=== PATIENT | male | born 1985 | race Caucasian/White ===

== ENCOUNTER 2016-09-04 15:30 | Inpatient (IN) ==
[2016-09-04] MEDS ORDERED: Ondansetron 4 MG/2 ML VIAL IVP ONE (15:51)
[2016-09-04] MEDS ORDERED: *HR* HYDROmorphone (PF) 1 MG/ML SYRINGE IVP ONE (15:51)
[2016-09-04] MEDS ORDERED: 0.9 % Sodium Chloride 1,000 ML IVC SCH (16:00)
[2016-09-04 16:51] LABS: Alanine Aminotransferase 20 Units/L (0-55); Albumin 5.1 g/dL (3.5-5.0); Albumin/Globulin Ratio 1.4 (1.1-2.2); Alkaline Phosphatase 76 Units/L (38-126); Aspartate Amino Transferase 19 Units/L (5-34); BUN/Creatinine Ratio 9 (6-26); Bilirubin,Total 1.7 mg/dL (0.2-1.2); Blood Urea Nitrogen 12 mg/dL (8-26); Calcium 11.3 mg/dL (8.6-10.8); Carbon Dioxide 22 mEq/L (19-29); Chloride 101 mEq/L (98-109); Globulin 3.7 g/dL (2.4-3.5); Glucose 147 mg/dL (70-99); Lipase 13 Units/L (8-78); Osmolality,Calculated 288 (280-300); Potassium 3.9 mEq/L (3.5-4.5); Sodium 138 mEq/L (136-145); Total Protein 8.8 g/dL (6.0-8.3); eGFR For African Americans > 60 (> 60); eGFR For Non-African Americans > 60 (> 60)
--- NOTE | 2016-09-04 17:01 | Emergency Department Note ---
Disposition Clinical Impression: Abdominal pain Qualifiers: Abdominal location: generalized Qualified Code(s): R10.84 - Generalized abdominal pain Disposition: Still a Patient [facility]: [facility] Care Provider[facility] - Forms: Work/School Release, ED Satisfaction Letter Abdominal Pain HPI - General Chief Complaint: ED Abdominal Pain Stated Complaint: SM bowel obstruction Time Seen by Provider: 09/04/16 15:50 Source: patient, family Nursing Notes Reviewed: Yes Vital Signs Reviewed: Yes - History of Present Illness Pain Scale: 9 - Related Data Allergies Allergy/AdvReac Type Severity Reaction Status Date / Time Amoxicillin AdvReac Rash Verified 09/04/16 15:42 Abdominal Pain PMH - Past Medical History Medical history: Reports: hypertension, other - Social History Smoking status: Never smoker Alcohol use: Reports: none Drug use: Reports: none Physical Exam - General Limitations: no limitations General appearance: alert, in distress Course Vital Signs Temperature 0 F L 09/04/16 15:42 Pulse Rate 128 09/04/16 15:42 Respiratory Rate 22 09/04/16 15:42 Blood Pressure 0/0 09/04/16 15:42 O2 Sat by Pulse Oximetry 97 09/04/16 15:42 Temperature 0 F L 09/04/16 15:42 Pulse Rate 114 09/04/16 16:01 Respiratory Rate 16 09/04/16 16:01 Blood Pressure 139/102 09/04/16 16:01 O2 Sat by Pulse Oximetry 95 09/04/16 16:01 Oxygen Delivery Oxygen Delivery Room Air Abdominal Pain - MDM Narrative Medical decision making narrative: I examined this patient and my medical decision-making was reviewed with the TECHNICAL ANALYST/PA/Advanced Practice Nurse/Resident Physician. I agree with the documented findings, disposition and treatment plan as described except to the extent set forth below. 09/04/16 @ 1750 hours Bed #5: EanJey : 81 Patient was seen and evaluated by Dr. Nobles and myself, I agree with his evaluation and management plan, I supervised the care of the patients stay. Currently our computer system hospitals down there and down time and this is the reason for this type of charting. Patients history of bowel obstructions in the past. In these been feeling bloated with nausea and pain today. He looks uncomfortable. There is a nonsurgical abdomen here and does have bowel sounds. Room and try to make him comfortable, check labs and a CT of his abdomen. He is in agreement with this plan. 1755 hrs.: Patients laboratory work is coming back, his white count is 9.7, his H&H are normal, platelets are normal, awaiting chemistry results and CAT scan. Chest X-Ray 09/04/16 15:51 IMPRESSION: 1. Left lower lobe opacity could be related to partial to complete collapse. Superimposed pneumonia is not excluded. 2. Minimal right basilar atelectasis. D/ / Fareed Agrawal MD / Fareed Agrawal MD Interpreting Provider: Fareed Agrawal MD 1832 hours: Patient had an EKG performed sinus tachycardia rates 114, QRS is 90 , QTC is 366, does have a right axis deviation no old EKGs in our system to compare this to. He is having no chest pain at this time. Patient is a little more comfortable at this time. We are signing him out to the evening ER physician Dr. Reddy for further management and disposition. - Lab Data Result diagrams: 09/04/16 16:04 Lab Results 09/04/16 09/04/16 Range/Units 16:04 16:04 Sodium 138 (136-145) mEq/L Potassium 3.9 (3.5-4.5) mEq/L Chloride 101 (98-109) mEq/L Carbon Dioxide 22 (19-29) mEq/L BUN 12 (8-26) mg/dL Creatinine 1.27 H (0.72-1.25) mg/dL Est GFR ( Amer) > 60 (> 60) Est GFR (Non-Af Amer) > 60 (> 60) BUN/Creatinine Ratio 9 (6-26) Glucose 147 H (70-99) mg/dL Calculated Osmolality 288 (280-300) Lactic Acid 2.2 (0.5-2.2) mmol/L Calcium 11.3 H (8.6-10.8) mg/dL Total Bilirubin 1.7 H (0.2-1.2) mg/dL AST 19 (5-34) Units/L ALT 20 (0-55) Units/L Alkaline Phosphatase 76 (38-126) Units/L Serum Total Protein 8.8 H (6.0-8.3) g/dL Albumin 5.1 H (3.5-5.0) g/dL Globulin 3.7 H (2.4-3.5) g/dL Albumin/Globulin Ratio 1.4 (1.1-2.2) Lipase 13 (8-78) Units/L
[2016-09-04] MEDS ORDERED: Ondansetron 4 MG/2 ML VIAL ONE (17:57)
[2016-09-04] MEDS ORDERED: *HR* HYDROmorphone (PF) 1 MG/ML SYRINGE ONE (17:57)
[2016-09-04] MEDS ORDERED: *HR* Promethazine 25 MG/ML VIAL IVP ONE (20:40)
[2016-09-04 20:52] LABS: Bilirubin,Urine Negative (Negative); Blood,Urine Trace (Negative); Clarity,Urine Clear (Clear); Color,Urine Yellow (Yellow); Glucose,Urine (UA) Normal (Normal); Ketones,Urine Negative (Negative); Leukocyte Esterase,Urine Small (Negative); Nitrite,Urine Negative (Negative); Protein,Urine Negative (Neg-Trace); Specific Gravity,Urine > 1.030 (1.010-1.025); Urobilinogen,Urine Normal (Normal)
[2016-09-04 20:53] LABS: Bacteria,Urine None Seen per hpf (None-Few); Hyaline Casts,Urine None Seen per lpf (None-Few); Squamous Epithelial Cell,Urine Many per lpf (None-Few); WBC,Urine 30-50 per hpf (0-3)
[2016-09-04 20:55] LABS: Basophils # 0.1 K/mcL (0.0-0.2); Basophils % 0.3 %; Eosinophils # 0.1 K/mcL (0.0-0.6); Eosinophils % 0.5 %; Hemoglobin 19.2 g/dL (12.9-16.9); Immature Granulocytes % 0.4 % (0-4); Lymphocytes # 2.2 K/mcL (0.6-4.6); Lymphocytes % 10.7 %; Mean Corpuscular HGB Conc 34.2 g/dL (31.6-35.5); Mean Corpuscular Hemoglobin 28.9 pg (28.0-33.3); Mean Corpuscular Volume 84.5 fL (83.0-100.0); Mean Platelet Volume 9.7 fL (9.4-12.4); Monocytes # 0.9 K/mcL (0.0-1.3); Monocytes % 4.6 %; Platelet Count 502 K/mcL (140-400); Red Blood Count 6.65 M/mcL (4.19-5.50); Red Cell Distribution Width 13.7 % (11.5-14.5); Segmented Neutrophils % 83.5 %
--- NOTE | 2016-09-04 20:56 | Emergency Department Note ---
Disposition Clinical Impression: Small bowel obstruction, partial Abdominal pain Qualifiers: Abdominal location: generalized Qualified Code(s): R10.84 - Generalized abdominal pain Disposition: Still a Patient Condition: Fair Time of Disposition: 05:22 Abdominal Pain HPI - General Chief Complaint: ED Abdominal Pain Stated Complaint: SM bowel obstruction Time Seen by Provider: 09/04/16 15:50 Source: patient, family Nursing Notes Reviewed: Yes Vital Signs Reviewed: Yes - History of Present Illness HPI Narrative: Mr. Davila, 30-year-old male, presents from home via POV with chief complaint of abdominal pain. Onset last night. Described as diffuse pain, with bloating. Associated nausea, vomiting. Also notes that he is having difficulty breathing from his abdominal distention. He is passing flatus. Last BM was 14:30 today and normal consistency. Patient notes his symptoms today are similar to previous small bowel obstructions. Patient postulates has had 20+ bowel obstructions in his lifetime. He states this is not anywhere near the worst but he knew it was progressing and needed evaluation. His last bowel obstruction was 7-8 months ago which is unusually long stretch for him to go without some degree of obstruction. PMH: History of multiple small bowel obstructions. Hypertension. PSH: Multiple bowel surgeries - cholecystectomy, appendectomy, bilateral inguinal hernia, diaphragmatic hernia, regular bowels and infant, full valve structure with surgical correction in 2008. No history of bowel resection. ROS: Positive: Nausea, vomiting, abdominal pain. Negative: Fever, chills, chest pains, palpitations, changes in bladder habits. No hematemesis, hematochezia, melena. Pain Scale: 9 - Related Data Home Medications Medication Instructions Recorded Confirmed Amitriptyline [Elavil] 10 mg PO HS 09/04/16 09/04/16 Lisinopril [Zestril] 10 mg PO DAILY 09/04/16 09/04/16 Allergies Allergy/AdvReac Type Severity Reaction Status Date / Time Amoxicillin AdvReac Rash Verified 09/04/16 15:42 All systems ED: reviewed and negative except as stated. Abdominal Pain PMH - Past Medical History Medical history: Reports: hypertension, other - Social History Smoking status: Never smoker Alcohol use: Reports: none Drug use: Reports: none Physical Exam Vital Signs Reviewed General: Patient is alert, oriented, and in moderate distress. HEENT: No facial asymmetry. Head is normocephalic and atraumatic. Trachea midline. Cardiovascular: Heart regular rate and rhythm without clicks, rubs, gallops, or murmurs. Respiratory: Symmetric chest rise with good respiratory effort. Bilateral breath sounds are clear without wheezing, crackles, or rhonchi. Abdomen: Bowel sounds present normoactive x-4 quadrants. Abdomen is nondistended, with guarding, and tenderness most prominent in right lower quadrant and left lower quadrant. No rebound tenderness. Psych: Patient's affect is appropriate for situation. - General Limitations: no limitations General appearance: alert, in distress Course Course Narrative: High clinical suspicion for small bowel stricture. Will provide nausea control , analgesia, IV fluids. No concern at this time for surgical abdomen. CT abdomen and pelvis without contrast shows distal obstruction; otherwise unremarkable as read by radiology. Patient has leukocytosis of 20.4, lactate of 2.2, normal hepatic and pancreatic enzymes. 21:30 Spoke with on-call general surgery, Dr. Bland, who agrees to follow the patient with admission to hospitalist. Request placement of NG tube and has no other concerns request at this time. 21:45 Spoke with the patient at length regarding an NG tube. He outright refused. We discussed rationale and that it does more than simply decompress the stomach but also down regulates bile production from the liver reducing fluid load on the small bowel specifically reducing bowel contents heading toward the obstruction to minimize risk of dilation, worsening obstruction, and cessation of peristalsis. Patient and his expressed understanding noting that they nor even told all this in the past. He again refused the NG tube. Discussed potential long-term sequelae of complete obstruction this necessitating emergent surgery. He expressed understanding and again refused the NG tube. Spoke with the admitting hospitalist, Dr. Lorenzo, who agrees to accept the patient. Also the patient uses NG tube despite full explanation of benefits of placement and risks of refusal. Vital Signs Temperature 0 F L 09/04/16 15:42 Pulse Rate 128 09/04/16 15:42 Respiratory Rate 22 09/04/16 15:42 Blood Pressure 0/0 09/04/16 15:42 O2 Sat by Pulse Oximetry 97 09/04/16 15:42 Temperature 97.6 F 09/05/16 05:09 Pulse Rate 90 09/05/16 05:09 Respiratory Rate 15 09/05/16 05:09 Blood Pressure 128/74 09/05/16 05:09 O2 Sat by Pulse Oximetry 94 09/05/16 05:09 Oxygen Delivery Oxygen Delivery Room Air Abdominal Pain - Lab Data Result diagrams: 09/05/16 04:44 09/04/16 16:04 Lab Results 09/04/16 09/04/16 09/04/16 Range/Units 16:04 16:04 16:04 WBC 20.4 H (4.3-11.1) K/mcL RBC 6.65 H (4.19-5.50) M/mcL Hgb 19.2 H (12.9-16.9) g/dL Hct 56.2 H (37.5-50.1) % MCV 84.5 (83.0-100.0) fL MCH 28.9 (28.0-33.3) pg MCHC 34.2 (31.6-35.5) g/dL RDW 13.7 (11.5-14.5) % Plt Count 502 H (140-400) K/mcL MPV 9.7 (9.4-12.4) fL Immature Gran % 0.4 (0-4) % Seg Neutrophils % 83.5 % Lymphocytes % 10.7 % Monocytes % 4.6 % Eosinophils % 0.5 % Basophils % 0.3 % Neutrophils # 17.0 H (1.6-8.9) K/mcL Lymphocytes # 2.2 (0.6-4.6) K/mcL Monocytes # 0.9 (0.0-1.3) K/mcL Eosinophils # 0.1 (0.0-0.6) K/mcL Basophils # 0.1 (0.0-0.2) K/mcL Sodium 138 (136-145) mEq/L Potassium 3.9 (3.5-4.5) mEq/L Chloride 101 (98-109) mEq/L Carbon Dioxide 22 (19-29) mEq/L BUN 12 (8-26) mg/dL Creatinine 1.27 H (0.72-1.25) mg/dL Est GFR ( Amer) > 60 (> 60) Est GFR (Non-Af Amer) > 60 (> 60) BUN/Creatinine Ratio 9 (6-26) Glucose 147 H (70-99) mg/dL POC Glucose (58-89) Calculated Osmolality 288 (280-300) Lactic Acid 2.2 (0.5-2.2) mmol/L Calcium 11.3 H (8.6-10.8) mg/dL Total Bilirubin 1.7 H (0.2-1.2) mg/dL AST 19 (5-34) Units/L ALT 20 (0-55) Units/L Alkaline Phosphatase 76 (38-126) Units/L Serum Total Protein 8.8 H (6.0-8.3) g/dL Albumin 5.1 H (3.5-5.0) g/dL Globulin 3.7 H (2.4-3.5) g/dL Albumin/Globulin Ratio 1.4 (1.1-2.2) Lipase 13 (8-78) Units/L Urine Color (Yellow) Urine Clarity (Clear) Urine pH (5.0-8.0) pH Units Ur Specific Dodson (1.010-1.025) Urine Protein (Neg-Trace) mg/dL Urine Glucose (UA) (Normal) mg/dL Urine Ketones (Negative) mg/dL Urine Blood (Negative) Urine Nitrite (Negative) Urine Bilirubin (Negative) Urine Urobilinogen (Normal) mg/dL Ur Leukocyte Esterase (Negative) Urine Microscopic RBC (0-3) per hpf Urine Microscopic WBC (0-3) per hpf Ur Squamous Epith Cells (None-Few) per lpf Urine Bacteria (None-Few) per hpf Hyaline Casts (None-Few) per lpf Ur Culture Indicated? (NO) 09/04/16 09/05/16 Range/Units 20:12 00:24 WBC (4.3-11.1) K/mcL RBC (4.19-5.50) M/mcL Hgb (12.9-16.9) g/dL Hct (37.5-50.1) % MCV (83.0-100.0) fL MCH (28.0-33.3) pg MCHC (31.6-35.5) g/dL RDW (11.5-14.5) % Plt Count (140-400) K/mcL MPV (9.4-12.4) fL Immature Gran % (0-4) % Seg Neutrophils % % Lymphocytes % % Monocytes % % Eosinophils % % Basophils % % Neutrophils # (1.6-8.9) K/mcL Lymphocytes # (0.6-4.6) K/mcL Monocytes # (0.0-1.3) K/mcL Eosinophils # (0.0-0.6) K/mcL Basophils # (0.0-0.2) K/mcL Sodium (136-145) mEq/L Potassium (3.5-4.5) mEq/L Chloride (98-109) mEq/L Carbon Dioxide (19-29) mEq/L BUN (8-26) mg/dL Creatinine (0.72-1.25) mg/dL Est GFR ( Amer) (> 60) Est GFR (Non-Af Amer) (> 60) BUN/Creatinine Ratio (6-26) Glucose (70-99) mg/dL POC Glucose 140 H (58-89) Calculated Osmolality (280-300) Lactic Acid (0.5-2.2) mmol/L Calcium (8.6-10.8) mg/dL Total Bilirubin (0.2-1.2) mg/dL AST (5-34) Units/L ALT (0-55) Units/L Alkaline Phosphatase (38-126) Units/L Serum Total Protein (6.0-8.3) g/dL Albumin (3.5-5.0) g/dL Globulin (2.4-3.5) g/dL Albumin/Globulin Ratio (1.1-2.2) Lipase (8-78) Units/L Urine Color Yellow (Yellow) Urine Clarity Clear (Clear) Urine pH 6.0 (5.0-8.0) pH Units Ur Specific Dodson > 1.030 H (1.010-1.025) Urine Protein Negative (Neg-Trace) mg/dL Urine Glucose (UA) Normal (Normal) mg/dL Urine Ketones Negative (Negative) mg/dL Urine Blood Trace H (Negative) Urine Nitrite Negative (Negative) Urine Bilirubin Negative (Negative) Urine Urobilinogen Normal (Normal) mg/dL Ur Leukocyte Esterase Small H (Negative) Urine Microscopic RBC 3-5 H (0-3) per hpf Urine Microscopic WBC 30-50 H (0-3) per hpf Ur Squamous Epith Cells Many H (None-Few) per lpf Urine Bacteria None Seen (None-Few) per hpf Hyaline Casts None Seen (None-Few) per lpf Ur Culture Indicated? YES A (NO) Attestation Statement - Attestation Attestation: I, Neil Wood MD, personally evaluated this patient and discussed their management with the resident physician. I reviewed the resident's note and agree with the documented findings, medical decision making, and plan of care. This patient was signed out at shift change from Dr. Faulkner and Dr. Nobles. Patient has a history of multiple previous abdominal surgeries and previous bowel obstructions. He presents with a one-day history of abdominal pain with nausea and some vomiting. He states he did have a bowel movement today and has been passing gas. Patient reports this feels like when he has a partial bowel obstruction. On examination patient is a well-developed well-nourished male in no acute distress. He is alert and oriented 3. There is no cyanosis or diaphoresis. Breath sounds are clear and equal bilaterally. Heart regular rate and rhythm. Abdomen is soft with moderate diffuse tenderness to palpation. Mild guarding but no rebound tenderness noted. No tympany or distention. No rigidity. Bowel sounds are increased and sound obstructed. Labs reviewed. CT showed a distal small bowel obstruction. Dr. Stinson discussed the case with the surgeon foundation assistant, Dr. Bland. Patient will be admitted to the hospitalist service with surgery consultation. The hospitalist, Dr. Lorenzo, was consulted and accepted admission of the patient.
[2016-09-04 21:02] LABS: Hematocrit 56.2 % (37.5-50.1)
[2016-09-04] MEDS ORDERED: *HR* Morphine 2 MG/ML SYRINGE IVP ONE (21:09)
[2016-09-04] MEDS ORDERED: 0.9 % Sodium Chloride 1,000 ML IVC ONE (21:10)
--- NOTE | 2016-09-04 23:41 | Internal Med History&Physical ---
Date of Encounter: 09/04/16 Time of Encounter: 23:41 Assessment and Plan (1) SBO (small bowel obstruction) Current visit: Yes Status: Acute patient with a history of multiple abdominal surgeries followed by adhesiolysis from bowel obstruction and several admissions for same comes in with signs an symptoms of bowel obstructions confirmed on CT of abdomen, he has declined NGT placement, we will do NPO except chips and meds, pain management, IVF and antiemetics, (2) Renal insufficiency Current visit: Yes Status: Acute baseline renal function unknown but this could be related to pre-renal azotemia considering his admission diagnosis, we will hydrate and follow BMP (3) HTN (hypertension) Current visit: Yes Status: Chronic will continue his home medications whilst monitoring his BP Qualifiers: Hypertension type: essential hypertension Qualified Code(s): I10 - Essential (primary) hypertension Internal Medicine - H&P: HPI Chief complaint: abdominal pain Admitted From: Emergency Dept Plans for Post Hospital Care: Home History of present illness: Mr. Davila is a 30 year old male with a history of multiple prior abdominal surgeries followed by multiple admissions for bowel obstruction was brought to the ER for abdominal pain, nausea and vomiting. He reports that his symptoms began last night, which later got worse later this morning. The pain is dull crampy and constant but intermittently has stabbing pain worse in the lower abdomen but is diffuse over the whole abdomen. No diarrhea is associated, he had a normal bowel movement today, he has also had a couple episodes of nausea and vomiting. The vomitus is non bilious and non bloody. He is still passing flatus. His last such episode was about 7-8 months ago and was seen in [place]. No fever, chills, noted. 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) Current living situation: Home - Independent, With Family Additional social history: with 2 children, - Family History Mother Age: 51 Living Status: Still Living Hx Family Musculoskeletal Disorders: Yes (Rheumitoid arthritis) - Additional Family History Additional family history: both parents are alive, father has no known medical conditions, mother has Rheumatoid arthritis, paternal grandfather has crohn's disease, maternal uncle has diverticulitis Internal Medicine - H&P: Meds Amitriptyline [Elavil] 10 mg PO HS 09/04/16 [History] Lisinopril [Zestril] 10 mg PO DAILY 09/04/16 [History] Allergies Amoxicillin Adverse Reaction (Verified 09/04/16 15:42) Rash All Systems PM: A 10-system review of systems was performed and is negative for pertinent findings except as documented above in the HPI. - Constitutional Vitals: Temp Pulse Resp BP Pulse Ox 97.9 F 111 20 125/85 93 09/04/16 23:23 09/04/16 21:56 09/04/16 23:23 09/04/16 23:23 09/04/16 21:56 PHYSICAL EXAMINATION: GENERAL: Adult male, lying in bed with discomfort, Alert, HEENT: NC/AT, EOMI, PERRLA, anicteric sclera, normal conjunctiva, supple, clear nares, dry mucous membranes, RESP: lungs are clear to auscultation bilaterally, good AE bilaterally, No crackles or wheeze CARDIO: Normal hearts sounds; S1 and 2, RRR with no murmurs, no JVD, no ankle edema GI: abdominal scars noted, soft, full, diffuse tenderness with no guarding, no organomegaly felt, occasional bowel sounds heard MUSCULOSKELETAL: grossly normal movements bilaterally, no deformities noted, no calf tenderness NEUROLOGIC: CN 2-12 intact grossly. No motor/sensory deficit appreciated, PSYCHIATRY: AAO x 3. Mood is fair, SKIN: surgical scars on abdomen, no rash noted Internal Med - H&P Results - Labs CBC & Chem 7: 09/05/16 04:44 09/04/16 16:04 - Diagnostic Studies CT scan - abdomen Status: image reviewed by me Chest x-ray Status: image reviewed by me
[2016-09-04] MEDS ORDERED: Ondansetron 4 MG/2 ML VIAL IVP PRN (23:53)
[2016-09-04] MEDS ORDERED: Naloxone 0.4 MG/ML INJ IVP PRN (23:53)
[2016-09-05] MEDS: *HR* HYDROmorphone (PF) 1 MG/ML SYRINGE IVP PRN ×6 (00:15→20:16)
[2016-09-05] MEDS: Ringers Solution, Lactated 1,000 ML IVC SCH ×3 (00:31→16:49)
[2016-09-05] MEDS: *HR* Enoxaparin 40 MG/0.4 ML SYRINGE SQ SCH (04:54)
[2016-09-05 05:10] LABS: Hematocrit 45.4 % (37.5-50.1); Hemoglobin 15.3 g/dL (12.9-16.9); Mean Corpuscular HGB Conc 33.7 g/dL (31.6-35.5); Mean Corpuscular Hemoglobin 28.5 pg (28.0-33.3); Mean Corpuscular Volume 84.5 fL (83.0-100.0); Platelet Count 371 K/mcL (140-400); Red Blood Count 5.37 M/mcL (4.19-5.50); Red Cell Distribution Width 13.2 % (11.5-14.5)
[2016-09-05 05:29] LABS: BUN/Creatinine Ratio 15 (6-26); Blood Urea Nitrogen 12 mg/dL (8-26); Calcium 8.4 mg/dL (8.6-10.8); Carbon Dioxide 24 mEq/L (19-29); Chloride 108 mEq/L (98-109); Glucose 125 mg/dL (70-99); Magnesium 1.6 mg/dL (1.6-2.6); Osmolality,Calculated 287 (280-300); Phosphorous 3.4 mg/dL (2.3-4.7); Potassium 4.2 mEq/L (3.5-4.5); Sodium 138 mEq/L (136-145); eGFR For African Americans > 60 (> 60); eGFR For Non-African Americans > 60 (> 60)
--- NOTE | 2016-09-05 09:36 | General Surgery Consult Note ---
Addendum entered and electronically signed by Jaylene Hong DO 09/05/16 16:54: Advance diet as tolerated. Surgery will sign out. Follow-up as needed. Original Note: <Jaylene Hong - Last Filed: 09/05/16 15:39> Date of Encounter: 09/05/16 Time of Encounter: 08:00 Assessment and Plan (1) SBO (small bowel obstruction) Current Visit: Yes Status: Acute Patient presents with signs and symptoms of small bowel obstruction. History of recurrent small bowel ejection and multiple abdominal surgeries. Today, patient reports that he has had flatus since admisison and has had one bowel movement this afternoon described as liquid and dark "like contrast media came through". Patient does not feel like this bowel obstruction warrents an NG tube at this time as it is not as bad as his previous SBO. CT scan demonstrates: Abdomen/Pelvis CT 09/04/16 17:30 IMPRESSION: Distal small bowel obstruction, likely due to an adhesion in the right lower quadrant. Surgical consultation is recommended. Chest X-Ray 09/04/16 15:51 IMPRESSION: 1. Left lower lobe opacity could be related to partial to complete collapse. Superimposed pneumonia is not excluded. 2. Minimal right basilar atelectasis. Laboratory results demonstrate leukocytosis with white blood cell count at 15.6. Otherwise unremarkable laboratory results. On exam: Abdomen: distended, minimal tympani, active bowel sounds, diffuse tenderness to palpation. No rebound/Rigidity/guarding/peritoneal signs. Nonsurgical abdomen. Vital signs stable. Non focal neuro exam. Plan: SBO NPO except for ice chips IV fluids Pain management Antiemetic: phenergan as pt states Zofran has not alleviated his sx. Continue abdominal exams. Conservative management over next 48-72 hours. If pt fails conservative management may require surgery. History of Present Illness Consult date: 09/05/16 Reason for consult: abdominal pain Requesting physician: Kartik Eckert History of present illness: Mr. Davila is a 30-year-old male with a past medical history of diaphragmatic hernia at that was repaired promptly however subsequently developed strangulated bowel approximately 13 days later and had bowel resection and appendectomy at that time, full bowel obstruction in 2008 with lysis of adhesions, bilateral inguinal hernias 2013, cholecystectomy 2015, hypertension, who presented to the emergency department last night with signs and symptoms of small bowel obstruction that was confirmed on CT of the abdomen. Patient reports progressive onset of symptoms that began 2 days ago Friday evening as distention bloating and discomfort diffusely across his abdomen. Yesterday patient awoke with increasing abdominal discomfort and pain and by the mid afternoon he was experiencing intense pain in the mid epigastric and periumbilical region with diffuse tenderness and constant cramping sensation with intermittent episodes of sharp stabbing sensations that radiate deep to his back. Associated symptoms include Nausea and vomiting 4 episodes nonbilious nonbloody. No alleviating factors. Symptoms are similar to his last bowel obstruction. Last small bowel obstruction was 7 months ago for which she was hospitalized 4 days treated conservatively with resolution of symptoms. Last meal 09/04/16 around 9 AM. Last bowel movement 09/04/16 around 1430 described as small and firm. Past Med Surg Social Fam HX - Past Medical History Medical history: hypertension, other Psychiatric history: no psych history - Past Surgical History Surgical History: appendectomy, cholecystectomy, herniorrhaphy (bilateral), other (adhesiolysis in 2008, for bowel obstruction, diaphragmatic hernia repair) - Social History Smoking Status: Never smoker Alcohol use: none Drug use: none - Family History Mother Age: 51 Living Status: Still Living Hx Family Musculoskeletal Disorders: Yes (Rheumitoid arthritis) Medications and Allergies Amitriptyline [Elavil] 10 mg PO HS 09/04/16 [History] Lisinopril [Zestril] 10 mg PO DAILY 09/04/16 [History] Allergies Amoxicillin Adverse Reaction (Verified 09/04/16 15:42) Rash Review of Systems All systems PM: A 10-system review of systems was performed and is negative for pertinent findings except as documented above in the HPI. - Constitutional no anorexia, no fatigue, no fever(s), no headache(s) - EENT Nose, mouth and throat: no dysphagia, no nasal trauma, no neck mass, no neck pain, no nose pain, no post-nasal drip, no sinus pressure, no throat swelling, no tongue swelling - Cardiovascular no chest pain, no diaphoresis, no dyspnea, no edema, no lightheadedness, no palpitations - Respiratory no cough, no hemoptysis, no wheezing - Gastrointestinal abdominal pain, belching, bloating, cramping, dyspepsia, heartburn, nausea, vomiting, no coffee ground emesis, no constipation, no diarrhea, no dysphagia, no excessive flatus, no hematemesis, no hematochezia, no loose stools, no melena , no tenesmus - Genitourinary no difficulty urinating, no dysuria, no flank pain, no hematuria, no urinary frequency - Musculoskeletal no neck pain, no numbness, no stiffness, no tingling - Integumentary no pruritus, no rash, no sores, no wounds, no jaundice - Neurological no abnormal speech, no confusion, no dizziness, no lack of coordination, no syncope - Psychiatric no anxiety, no irritability - Endocrine no fatigue, no flushing, no palpitations, no polydipsia, no polyphagia, no polyuria - Hematologic/Lymphatic no easy bleeding, no easy bruising, no lymphadenopathy - Allergic/Immunologic GI upset with certain foods, no tongue swelling, no throat swelling, no uticaria General Surgery Exam Initial Vital Signs Temp Pulse Resp BP Pulse Ox 0 F L 128 22 0/0 97 09/04/16 15:42 09/04/16 15:42 09/04/16 15:42 09/04/16 15:42 09/04/16 15:42 - General physical appearance well developed, well nourished, no distress, moderate pain - Eyes PERRL, normal ocular movement - ENT normal nares, normal mucosa, atraumatic, normocephalic, CN 2-12 grossly intact - Neck no bruits, trachea midline, no venous distension - Respiratory normal expansion, normal respiratory effort, clear to auscultation - Cardiovascular Cardiovascular exam: Present: RRR, no murmurs/rubs/gallops. Absent: JVD - Abdomen Abdomen general surgery: Present: bowel sounds present, soft, tender Abdominal Tenderness: Present: diffusely - Integumentary Integumentary general surgery: Present: warm and dry, no abnormal pigmentation. Absent: rash - Neurologic Present: CN 2-12 grossly intact, normal coordination, normal sensation, deep tendon reflexes - Musculoskeletal Present: normal gait, normal posture - Psychiatric Psychiatric general surgery: Present: A&Ox3, appropriate, speech is normal, memory intact Exam Initial Vital Signs Temp Pulse Resp BP Pulse Ox 0 F L 128 22 0/0 97 09/04/16 15:42 09/04/16 15:42 09/04/16 15:42 09/04/16 15:42 09/04/16 15:42 Results - Labs 09/05/16 04:44 09/05/16 04:44 Abnormal lab results WBC 15.6 K/mcL (4.3-11.1) H 09/05/16 04:44 MPV 9.0 fL (9.4-12.4) L 09/05/16 04:44 Neutrophils # 17.0 K/mcL (1.6-8.9) H 09/04/16 16:04 Glucose 125 mg/dL (70-99) H 09/05/16 04:44 POC Glucose 112 (58-89) H 09/05/16 05:13 Calcium 8.4 mg/dL (8.6-10.8) L D 09/05/16 04:44 Total Bilirubin 1.7 mg/dL (0.2-1.2) H 09/04/16 16:04 Serum Total Protein 8.8 g/dL (6.0-8.3) H 09/04/16 16:04 Albumin 5.1 g/dL (3.5-5.0) H 09/04/16 16:04 Globulin 3.7 g/dL (2.4-3.5) H 09/04/16 16:04 Ur Specific [place] > 1.030 (1.010-1.025) H 09/04/16 20:12 Urine Blood Trace (Negative) H 09/04/16 20:12 Ur Leukocyte Esterase Small (Negative) H 09/04/16 20:12 Urine Microscopic RBC 3-5 per hpf (0-3) H 09/04/16 20:12 Urine Microscopic WBC 30-50 per hpf (0-3) H 09/04/16 20:12 Ur Squamous Epith Cells Many per lpf (None-Few) H 09/04/16 20:12 Ur Culture Indicated? YES (NO) A 09/04/16 20:12 Diabetes panel 09/05/16 Range/Units 04:44 Sodium 138 (136-145) mEq/L Potassium 4.2 (3.5-4.5) mEq/L Chloride 108 (98-109) mEq/L Carbon Dioxide 24 (19-29) mEq/L BUN 12 (8-26) mg/dL Creatinine 0.82 (0.72-1.25) mg/dL Glucose 125 H (70-99) mg/dL Calcium 8.4 L D (8.6-10.8) mg/dL Calcium panel 09/05/16 Range/Units 04:44 Calcium 8.4 L D (8.6-10.8) mg/dL Phosphorus 3.4 (2.3-4.7) mg/dL Pituitary panel 09/05/16 Range/Units 04:44 Sodium 138 (136-145) mEq/L Potassium 4.2 (3.5-4.5) mEq/L Chloride 108 (98-109) mEq/L Carbon Dioxide 24 (19-29) mEq/L BUN 12 (8-26) mg/dL Creatinine 0.82 (0.72-1.25) mg/dL Glucose 125 H (70-99) mg/dL Calcium 8.4 L D (8.6-10.8) mg/dL Adrenal panel 09/05/16 Range/Units 04:44 Sodium 138 (136-145) mEq/L Potassium 4.2 (3.5-4.5) mEq/L Chloride 108 (98-109) mEq/L Carbon Dioxide 24 (19-29) mEq/L BUN 12 (8-26) mg/dL Creatinine 0.82 (0.72-1.25) mg/dL Glucose 125 H (70-99) mg/dL Calcium 8.4 L D (8.6-10.8) mg/dL All other labs normal. Consult Discharge Plan - Plan Referrals: [facility] [Outside] <Rojas Bland E - Last Filed: 09/06/16 08:41> Date of Encounter: 09/06/16 Assessment and Plan (1) Small bowel obstruction, partial Current Visit: Yes Status: Acute The patient's abdominal pain has resolved. The patient also reports flatus and a bowel movement. Therefore no bowel obstruction is observed at this point. We were available if the patient's symptoms should recur otherwise we will see the patient as needed and I will sign off at this point. Review of Systems All systems PM: A 10-system review of systems was performed and is negative for pertinent findings except as documented above in the HPI. General Surgery Exam Initial Vital Signs Temp Pulse Resp BP Pulse Ox 0 F L 128 22 0/0 97 09/04/16 15:42 09/04/16 15:42 09/04/16 15:42 09/04/16 15:42 09/04/16 15:42 Exam Initial Vital Signs Temp Pulse Resp BP Pulse Ox 0 F L 128 22 0/0 97 09/04/16 15:42 09/04/16 15:42 09/04/16 15:42 09/04/16 15:42 09/04/16 15:42 Results - Labs 09/06/16 04:00 09/06/16 04:00 Abnormal lab results Sodium 135 mEq/L (136-145) L 09/06/16 04:00 Calculated Osmolality 278 (280-300) L 09/06/16 04:00 Calcium 8.1 mg/dL (8.6-10.8) L 09/06/16 04:00 Magnesium 1.5 mg/dL (1.6-2.6) L 09/06/16 04:00 Total Bilirubin 1.7 mg/dL (0.2-1.2) H 09/04/16 16:04 Serum Total Protein 8.8 g/dL (6.0-8.3) H 09/04/16 16:04 Albumin 5.1 g/dL (3.5-5.0) H 09/04/16 16:04 Globulin 3.7 g/dL (2.4-3.5) H 09/04/16 16:04 Ur Specific [place] > 1.030 (1.010-1.025) H 09/04/16 20:12 Urine Blood Trace (Negative) H 09/04/16 20:12 Ur Leukocyte Esterase Small (Negative) H 09/04/16 20:12 Urine Microscopic RBC 3-5 per hpf (0-3) H 09/04/16 20:12 Urine Microscopic WBC 30-50 per hpf (0-3) H 09/04/16 20:12 Ur Squamous Epith Cells Many per lpf (None-Few) H 09/04/16 20:12 Ur Culture Indicated? YES (NO) A 09/04/16 20:12 Diabetes panel 09/06/16 Range/Units 04:00 Sodium 135 L (136-145) mEq/L Potassium 3.9 (3.5-4.5) mEq/L Chloride 105 (98-109) mEq/L Carbon Dioxide 25 (19-29) mEq/L BUN 11 (8-26) mg/dL Creatinine 0.84 (0.72-1.25) mg/dL Glucose 81 (70-99) mg/dL Calcium 8.1 L (8.6-10.8) mg/dL Calcium panel 09/06/16 Range/Units 04:00 Calcium 8.1 L (8.6-10.8) mg/dL Pituitary panel 09/06/16 Range/Units 04:00 Sodium 135 L (136-145) mEq/L Potassium 3.9 (3.5-4.5) mEq/L Chloride 105 (98-109) mEq/L Carbon Dioxide 25 (19-29) mEq/L BUN 11 (8-26) mg/dL Creatinine 0.84 (0.72-1.25) mg/dL Glucose 81 (70-99) mg/dL Calcium 8.1 L (8.6-10.8) mg/dL Adrenal panel 09/06/16 Range/Units 04:00 Sodium 135 L (136-145) mEq/L Potassium 3.9 (3.5-4.5) mEq/L Chloride 105 (98-109) mEq/L Carbon Dioxide 25 (19-29) mEq/L BUN 11 (8-26) mg/dL Creatinine 0.84 (0.72-1.25) mg/dL Glucose 81 (70-99) mg/dL Calcium 8.1 L (8.6-10.8) mg/dL All other labs normal.
--- NOTE | 2016-09-05 12:57 | Electrocardiograph Report ---
[address] [address] Test Date: 2016-09-04 Pat Name: Jey Davila Department: 104 Room: 3A33 Gender: M [place]: : 1985 Requested By: Adeel Faulkner Order Number: [id number] Reading MD: Rosalio Paul MD Measurements Intervals [place] Rate: 114 P: 48 AR: 123 QRS: 102 QRSD: 90 T: -22 QT: 298 QTc: 366 Interpretive Statements SINUS TACHYCARDIA MARKED RIGHT AXIS DEVIATION Electronically Signed On 09-05-2016 12:55:16 EDT by Rosalio Paul MD
[2016-09-05] MEDS: *HR* Promethazine 25 MG/ML VIAL IVP PRN ×2 (12:59→20:16)
--- NOTE | 2016-09-05 15:38 | Internal Med Progress Note ---
Date of Encounter: 09/05/16 Time of Encounter: 10:00 - Assessment and plan (1) DVT prophylaxis Current Visit: Yes Status: Acute Assessment and plan: Lovenox subcutaneously (2) HTN (hypertension) Current Visit: Yes Status: Chronic Assessment and plan: BP is stable. continue home medications Qualifiers: Hypertension type: essential hypertension Qualified Code(s): I10 - Essential (primary) hypertension (3) Small bowel obstruction, partial Current Visit: Yes Status: Acute Assessment and plan: Patient has flatus. Consider partial small bowel obstruction. Patient has history of multiple intra-abdominal surgeries and history of small bowel obstruction previously. - Continue nothing by mouth, IV fluid - Closely monitor patient - Surgical consult - Time Spent With Patient 25 - 35 minutes - Subjective Interval history: Patient is a 30-year-old male admitted for small bowel obstruction. His past medical history is significant for hypertension and multiple intra-abdominal surgeries. Patient was seen and examined. The abdominal pain is less. Patient has flatus. Vital signs stable. Surgical consult appreciated. We will continue nothing by mouth and IV fluid. - Constitutional Vitals: Temp Pulse Resp BP Pulse Ox 98.0 F 95 20 132/91 95 09/05/16 11:20 09/05/16 11:20 09/05/16 11:20 09/05/16 11:20 09/05/16 11:20 General appearance: Present: A&O X 3, no acute distress, answers questions appropriately - Head Head exam: Present: atraumatic, normocephalic - Eye Eye exam: Present: PERRL, conjuntiva pink, sclera anicteric Pupils: Present: PERRL - Neck Neck exam general surgery: Present: supple, trachea midline. Absent: lymphadenopathy - Respiratory Respiratory exam: Present: CTAB. Absent: accessory muscle use, rales, rhonchi, wheezes - Cardiovascular Cardiovascular exam: Present: RRR, +S1, +S2. Absent: diastolic murmur, gallop, rubs, systolic murmur - GI/Abdominal GI/Abdominal exam: Present: hyperactive bowel sounds, soft, no peritoneal signs. Absent: distended, tenderness - Extremities Exam Extremities exam: Present: warm, radial pulses palpable and symetrical. Absent : calf tenderness, cyanotic, pedal edema - Neurological Exam Neurological exam: Present: CN II-XII intact, oriented X3, no focal deficits. Absent: pronater drift, facial droop, speech deficit - Skin Skin exam: Present: dry, intact Internal Medicine: Result - Labs CBC & Chem 7: 09/05/16 04:44 09/05/16 04:44 Labs: Short CBC 09/05/16 Range/Units 04:44 WBC 15.6 H (4.3-11.1) K/mcL Hgb 15.3 D (12.9-16.9) g/dL Hct 45.4 (37.5-50.1) % Plt Count 371 (140-400) K/mcL BMP 09/05/16 04:44 Sodium 138 Potassium 4.2 Chloride 108 Carbon Dioxide 24 BUN 12 Creatinine 0.82 Glucose 125 H Calcium 8.4 L D Consult Discharge Plan - Plan Referrals: [facility] [Outside]
[2016-09-06] MEDS: *HR* Promethazine 25 MG/ML VIAL IVP PRN ×3 (03:45→22:18)
[2016-09-06] MEDS: *HR* HYDROmorphone (PF) 1 MG/ML SYRINGE IVP PRN (03:46)
[2016-09-06] MEDS: *HR* Enoxaparin 40 MG/0.4 ML SYRINGE SQ SCH (03:47)
[2016-09-06 05:01] LABS: Basophils % 0.4 %; Eosinophils # 0.3 K/mcL (0.0-0.6); Eosinophils % 2.8 %; Hematocrit 41.1 % (37.5-50.1); Immature Granulocytes % 0.2 % (0-4); Lymphocytes # 1.7 K/mcL (0.6-4.6); Lymphocytes % 19.2 %; Mean Corpuscular HGB Conc 34.1 g/dL (31.6-35.5); Mean Corpuscular Hemoglobin 29.5 pg (28.0-33.3); Mean Corpuscular Volume 86.7 fL (83.0-100.0); Mean Platelet Volume 9.6 fL (9.4-12.4); Monocytes # 0.8 K/mcL (0.0-1.3); Monocytes % 8.9 %; Neutrophils # 6.2 K/mcL (1.6-8.9); Platelet Count 320 K/mcL (140-400); Red Blood Count 4.74 M/mcL (4.19-5.50); Red Cell Distribution Width 13.2 % (11.5-14.5); Segmented Neutrophils % 68.5 %
[2016-09-06 05:17] LABS: BUN/Creatinine Ratio 13 (6-26); Blood Urea Nitrogen 11 mg/dL (8-26); Calcium 8.1 mg/dL (8.6-10.8); Carbon Dioxide 25 mEq/L (19-29); Chloride 105 mEq/L (98-109); Glucose 81 mg/dL (70-99); Osmolality,Calculated 278 (280-300); Potassium 3.9 mEq/L (3.5-4.5); Sodium 135 mEq/L (136-145); eGFR For African Americans > 60 (> 60); eGFR For Non-African Americans > 60 (> 60)
[2016-09-06 07:11] LABS: Magnesium 1.5 mg/dL (1.6-2.6)
--- NOTE | 2016-09-06 07:41 | General Surgery Progress Note ---
Date of Encounter: 09/06/16 Time of Encounter: 07:32 - Assessment and Plan (1) SBO (small bowel obstruction) Current Visit: Yes Status: Acute Patient presents with signs and symptoms of small bowel obstruction. History of recurrent small bowel ejection and multiple abdominal surgeries. Today, patient reports that he has had flatus since admisison and has had one bowel movement this afternoon described as liquid and dark "like contrast media came through". Patient does not feel like this bowel obstruction warrents an NG tube at this time as it is not as bad as his previous SBO. CT scan demonstrates: Abdomen/Pelvis CT 09/04/16 17:30 IMPRESSION: Distal small bowel obstruction, likely due to an adhesion in the right lower quadrant. Surgical consultation is recommended. Chest X-Ray 09/04/16 15:51 IMPRESSION: 1. Left lower lobe opacity could be related to partial to complete collapse. Superimposed pneumonia is not excluded. 2. Minimal right basilar atelectasis. Laboratory results demonstrate leukocytosis with white blood cell count at 15.6. Otherwise unremarkable laboratory results. On exam: Abdomen: distended, minimal tympani, active bowel sounds, diffuse tenderness to palpation. No rebound/Rigidity/guarding/peritoneal signs. Nonsurgical abdomen. Vital signs stable. Non focal neuro exam. Plan: SBO NPO except for ice chips IV fluids Pain management Antiemetic: phenergan as pt states Zofran has not alleviated his sx. Continue abdominal exams. Conservative management over next 48-72 hours. If pt fails conservative management may require surgery. Objective Vital Signs - Last 8 Hours Temp Pulse Resp BP Pulse Ox 09/06/16 04:39 98.0 F 87 18 112/75 94 Intake and Output 09/05/16 09/05/16 09/06/16 15:59 23:59 07:59 Intake Total 1000 / 1000 1460 / 1460 1999 / 1999 Output Total 650 / 650 0 / 0 425 / 425 Balance 350 / 350 1460 / 1460 1575 / 1575 Intake: IV Fluids 1000 / 1000 1000 / 1000 1999 / 1999 Lactated Ringers 1,000 ML 1000 / 1000 1000 / 1000 1000 / 1000 @ 125 mls/hr IVC .Q8H NICOLAS Rx#:[id number] Oral 0 / 0 460 / 460 Output: Urine 650 / 650 0 / 0 425 / 425 Other: Weight 73.482 kg Blood Glucose* 96 85 Patient Weight 05/26/17 23:59 Weight 73.482 kg - Integumentary no rash, no abnormal pigmentation, other (Patient's lower extremities is covered with watery stool.) - Neurologic CN 2-12 grossly intact, normal coordination, normal sensation - Musculoskeletal normal posture - Psychiatric oriented to time, oriented to person, oriented to place, speech is normal, memory intact, other (Patient is irritable) - Labs 09/06/16 04:00 09/06/16 04:00 Diabetes panel 09/06/16 Range/Units 04:00 Sodium 135 L (136-145) mEq/L Potassium 3.9 (3.5-4.5) mEq/L Chloride 105 (98-109) mEq/L Carbon Dioxide 25 (19-29) mEq/L BUN 11 (8-26) mg/dL Creatinine 0.84 (0.72-1.25) mg/dL Glucose 81 (70-99) mg/dL Calcium 8.1 L (8.6-10.8) mg/dL Calcium panel 09/06/16 Range/Units 04:00 Calcium 8.1 L (8.6-10.8) mg/dL Pituitary panel 09/06/16 Range/Units 04:00 Sodium 135 L (136-145) mEq/L Potassium 3.9 (3.5-4.5) mEq/L Chloride 105 (98-109) mEq/L Carbon Dioxide 25 (19-29) mEq/L BUN 11 (8-26) mg/dL Creatinine 0.84 (0.72-1.25) mg/dL Glucose 81 (70-99) mg/dL Calcium 8.1 L (8.6-10.8) mg/dL Adrenal panel 09/06/16 Range/Units 04:00 Sodium 135 L (136-145) mEq/L Potassium 3.9 (3.5-4.5) mEq/L Chloride 105 (98-109) mEq/L Carbon Dioxide 25 (19-29) mEq/L BUN 11 (8-26) mg/dL Creatinine 0.84 (0.72-1.25) mg/dL Glucose 81 (70-99) mg/dL Calcium 8.1 L (8.6-10.8) mg/dL Consult Discharge Plan - Plan Referrals: [facility] [Outside]
[2016-09-06] MEDS ORDERED: *HR* OxyCODONE Immed Rel 5 MG TABLET PO PRN (08:20)
[2016-09-06] MEDS ORDERED: Magnesium Sulfate 2 GM in D5% in Water 100 ML IVPB ONE (08:34)
[2016-09-06] MEDS: Ketorolac 30 MG/ML VIAL IVP PRN ×2 (11:25→18:39)
[2016-09-06] MEDS: *HR* OxyCODONE Immed Rel 5 MG TABLET PO PRN ×2 (15:09→22:18)
--- NOTE | 2016-09-06 16:38 | Internal Med Progress Note ---
Date of Encounter: 09/06/16 Time of Encounter: 10:00 - Assessment and plan (1) DVT prophylaxis Current Visit: Yes Status: Acute Assessment and plan: Lovenox subcutaneously (2) HTN (hypertension) Current Visit: Yes Status: Chronic Assessment and plan: BP is stable. continue home medications Qualifiers: Hypertension type: essential hypertension Qualified Code(s): I10 - Essential (primary) hypertension (3) Small bowel obstruction, partial Current Visit: Yes Status: Acute Assessment and plan: Patient has flatus and BM. Consider partial small bowel obstruction. Patient has history of multiple intra-abdominal surgeries and history of small bowel obstruction previously. - Advance diet as tolerate, IV fluid - Closely monitor patient - Time Spent With Patient 25 - 35 minutes - Subjective Interval history: Patient is a 30-year-old male admitted for small bowel obstruction. His past medical history is significant for hypertension and multiple intra-abdominal surgeries. Patient was seen and examined. The abdominal pain is less. Patient has flatus and one BM yesterday. Vital signs stable. Surgical consult appreciated. Diet has been advanced to full liquid. Continue closely monitor pt. - Constitutional Vitals: Temp Pulse Resp BP Pulse Ox 98.2 F 91 18 122/79 95 09/06/16 15:22 09/06/16 15:22 09/06/16 15:22 09/06/16 15:22 09/06/16 15:22 General appearance: Present: A&O X 3, no acute distress, answers questions appropriately - Head Head exam: Present: atraumatic, normocephalic - Eye Eye exam: Present: PERRL, conjuntiva pink, sclera anicteric Pupils: Present: PERRL - Neck Neck exam general surgery: Present: supple, trachea midline. Absent: lymphadenopathy - Respiratory Respiratory exam: Present: CTAB. Absent: accessory muscle use, rales, rhonchi, wheezes - Cardiovascular Cardiovascular exam: Present: RRR, +S1, +S2. Absent: diastolic murmur, gallop, rubs, systolic murmur - GI/Abdominal GI/Abdominal exam: Present: hyperactive bowel sounds, soft, no peritoneal signs. Absent: distended, tenderness - Extremities Exam Extremities exam: Present: warm, radial pulses palpable and symetrical. Absent : calf tenderness, cyanotic, pedal edema - Neurological Exam Neurological exam: Present: CN II-XII intact, oriented X3, no focal deficits. Absent: pronater drift, facial droop, speech deficit - Skin Skin exam: Present: dry, intact Internal Medicine: Result - Labs CBC & Chem 7: 09/06/16 04:00 09/06/16 04:00 Labs: Short CBC 09/06/16 Range/Units 04:00 WBC 9.1 (4.3-11.1) K/mcL Hgb 14.0 (12.9-16.9) g/dL Hct 41.1 (37.5-50.1) % Plt Count 320 (140-400) K/mcL Neutrophils # 6.2 (1.6-8.9) K/mcL BMP 09/06/16 04:00 Sodium 135 L Potassium 3.9 Chloride 105 Carbon Dioxide 25 BUN 11 Creatinine 0.84 Glucose 81 Calcium 8.1 L Consult Discharge Plan - Plan Referrals: [facility] [Outside]
[2016-09-07] MEDS: Ketorolac 30 MG/ML VIAL IVP PRN ×4 (03:41→21:30)
[2016-09-07 03:58] LABS: Basophils % 0.5 %; Eosinophils # 0.3 K/mcL (0.0-0.6); Eosinophils % 3.7 %; Hemoglobin 14.2 g/dL (12.9-16.9); Immature Granulocytes % 0.3 % (0-4); Lymphocytes # 1.9 K/mcL (0.6-4.6); Lymphocytes % 23.4 %; Mean Corpuscular HGB Conc 33.8 g/dL (31.6-35.5); Mean Corpuscular Hemoglobin 29.3 pg (28.0-33.3); Mean Corpuscular Volume 86.6 fL (83.0-100.0); Mean Platelet Volume 9.5 fL (9.4-12.4); Monocytes # 0.8 K/mcL (0.0-1.3); Monocytes % 9.8 %; Platelet Count 331 K/mcL (140-400); Red Blood Count 4.85 M/mcL (4.19-5.50); Red Cell Distribution Width 13.2 % (11.5-14.5); Segmented Neutrophils % 62.3 %
[2016-09-07 04:23] LABS: BUN/Creatinine Ratio 12 (6-26); Blood Urea Nitrogen 11 mg/dL (8-26); Calcium 8.6 mg/dL (8.6-10.8); Carbon Dioxide 24 mEq/L (19-29); Chloride 107 mEq/L (98-109); Glucose 96 mg/dL (70-99); Osmolality,Calculated 283 (280-300); Potassium 3.7 mEq/L (3.5-4.5); Sodium 137 mEq/L (136-145); eGFR For African Americans > 60 (> 60); eGFR For Non-African Americans > 60 (> 60)
[2016-09-07] MEDS: *HR* Promethazine 25 MG/ML VIAL IVP PRN ×3 (06:37→21:29)
[2016-09-07] MEDS: *HR* Enoxaparin 40 MG/0.4 ML SYRINGE SQ SCH (06:37)
[2016-09-07] MEDS: D5% in 0.45% NACL 1,000 ML IVC SCH ×2 (09:14→19:38)
[2016-09-07] MEDS: *HR* OxyCODONE Immed Rel 5 MG TABLET PO PRN (12:40)
--- NOTE | 2016-09-07 13:53 | Internal Med Progress Note ---
Date of Encounter: 09/07/16 Time of Encounter: 10:00 - Assessment and plan (1) DVT prophylaxis Current Visit: Yes Status: Acute Assessment and plan: Lovenox subcutaneously (2) HTN (hypertension) Current Visit: Yes Status: Chronic Assessment and plan: BP is stable. continue home medications Qualifiers: Hypertension type: essential hypertension Qualified Code(s): I10 - Essential (primary) hypertension (3) Small bowel obstruction, partial Current Visit: Yes Status: Acute Assessment and plan: Patient has flatus. Consider partial small bowel obstruction. Patient has history of multiple intra-abdominal surgeries and history of small bowel obstruction previously. Slow progression with treatment. - Advance diet as tolerate, IV fluid - Closely monitor patient - Time Spent With Patient 25 - 35 minutes - Subjective Interval history: Patient is a 30-year-old male admitted for small bowel obstruction. His past medical history is significant for hypertension and multiple intra-abdominal surgeries. Patient was seen and examined. The abdominal pain is less. Patient has flatus. No further BM yesterday. On full liquid diet but pt not consume food b/ o poor apetite. Vital signs stable. Continue closely monitor pt. - Constitutional Vitals: Temp Pulse Resp BP Pulse Ox 97.6 F 78 16 123/73 95 09/07/16 11:42 09/07/16 11:42 09/07/16 11:42 09/07/16 11:42 09/07/16 11:42 General appearance: Present: A&O X 3, no acute distress, answers questions appropriately - Head Head exam: Present: atraumatic, normocephalic - Eye Eye exam: Present: PERRL, conjuntiva pink, sclera anicteric Pupils: Present: PERRL - Neck Neck exam general surgery: Present: supple, trachea midline. Absent: lymphadenopathy - Respiratory Respiratory exam: Present: CTAB. Absent: accessory muscle use, rales, rhonchi, wheezes - Cardiovascular Cardiovascular exam: Present: RRR, +S1, +S2. Absent: diastolic murmur, gallop, rubs, systolic murmur - GI/Abdominal GI/Abdominal exam: Present: hyperactive bowel sounds, soft, no peritoneal signs. Absent: distended, tenderness - Extremities Exam Extremities exam: Present: warm, radial pulses palpable and symetrical. Absent : calf tenderness, cyanotic, pedal edema - Neurological Exam Neurological exam: Present: CN II-XII intact, oriented X3, no focal deficits. Absent: pronater drift, facial droop, speech deficit - Skin Skin exam: Present: dry, intact Internal Medicine: Result - Labs CBC & Chem 7: 09/07/16 03:02 09/07/16 03:02 Labs: Short CBC 09/07/16 Range/Units 03:02 WBC 7.9 (4.3-11.1) K/mcL Hgb 14.2 (12.9-16.9) g/dL Hct 42.0 (37.5-50.1) % Plt Count 331 (140-400) K/mcL Neutrophils # 5.0 (1.6-8.9) K/mcL BMP 09/07/16 03:02 Sodium 137 Potassium 3.7 Chloride 107 Carbon Dioxide 24 BUN 11 Creatinine 0.94 Glucose 96 Calcium 8.6 Consult Discharge Plan - Plan Referrals: [facility] [Outside]
[2016-09-08 05:00] LABS: Basophils % 0.5 %; Eosinophils # 0.3 K/mcL (0.0-0.6); Eosinophils % 4.7 %; Hematocrit 42.2 % (37.5-50.1); Hemoglobin 14.3 g/dL (12.9-16.9); Immature Granulocytes % 0.1 % (0-4); Lymphocytes % 27.4 %; Mean Corpuscular HGB Conc 33.9 g/dL (31.6-35.5); Mean Corpuscular Hemoglobin 28.9 pg (28.0-33.3); Mean Corpuscular Volume 85.3 fL (83.0-100.0); Mean Platelet Volume 9.6 fL (9.4-12.4); Monocytes # 0.6 K/mcL (0.0-1.3); Monocytes % 8.4 %; Neutrophils # 4.3 K/mcL (1.6-8.9); Platelet Count 340 K/mcL (140-400); Red Blood Count 4.95 M/mcL (4.19-5.50); Red Cell Distribution Width 13.1 % (11.5-14.5); Segmented Neutrophils % 58.9 %
[2016-09-08] MEDS: *HR* Promethazine 25 MG/ML VIAL IVP PRN ×3 (05:04→22:09)
[2016-09-08] MEDS: *HR* OxyCODONE Immed Rel 5 MG TABLET PO PRN ×3 (05:05→19:42)
[2016-09-08] MEDS: D5% in 0.45% NACL 1,000 ML IVC SCH ×2 (05:06→15:42)
[2016-09-08] MEDS: *HR* Enoxaparin 40 MG/0.4 ML SYRINGE SQ SCH (05:07)
[2016-09-08 05:15] LABS: BUN/Creatinine Ratio 9 (6-26); Blood Urea Nitrogen 8 mg/dL (8-26); Calcium 8.4 mg/dL (8.6-10.8); Carbon Dioxide 22 mEq/L (19-29); Chloride 108 mEq/L (98-109); Glucose 104 mg/dL (70-99); Osmolality,Calculated 283 (280-300); Potassium 3.7 mEq/L (3.5-4.5); Sodium 137 mEq/L (136-145); eGFR For African Americans > 60 (> 60); eGFR For Non-African Americans > 60 (> 60)
[2016-09-08] MEDS: Ketorolac 30 MG/ML VIAL IVP PRN ×3 (10:20→22:10)
--- NOTE | 2016-09-08 16:24 | Internal Med Progress Note ---
Date of Encounter: 09/08/16 Time of Encounter: 10:00 - Assessment and plan (1) DVT prophylaxis Current Visit: Yes Status: Acute Assessment and plan: Lovenox subcutaneously (2) HTN (hypertension) Current Visit: Yes Status: Chronic Assessment and plan: BP is stable. continue home medications Qualifiers: Hypertension type: essential hypertension Qualified Code(s): I10 - Essential (primary) hypertension (3) Small bowel obstruction, partial Current Visit: Yes Status: Acute Assessment and plan: Patient has flatus. Consider partial small bowel obstruction. Patient has history of multiple intra-abdominal surgeries and history of small bowel obstruction previously. Get worse again today. - Will restart NPO, more conservative with diet advances, IV fluid - Closely monitor patient - Time Spent With Patient 25 - 35 minutes - Subjective Interval history: Patient is a 30-year-old male admitted for small bowel obstruction. His past medical history is significant for hypertension and multiple intra-abdominal surgeries. Patient was seen and examined. Patient has flatus and bowel movement yesterday. However, even before advanced diet to regular today, patient has increased abd distention and the pain. He still can pass flatus. Patient told me he has 20-30 hospitalization within the last 5 years for the same reason. He worries about coming back soon. Will hold diet now, restart NPO and IVF, closely monitor pt. - Constitutional Vitals: Temp Pulse Resp BP Pulse Ox 97.4 F L 69 16 145/89 95 09/08/16 14:45 09/08/16 14:45 09/08/16 14:45 09/08/16 14:45 09/08/16 14:45 General appearance: Present: A&O X 3, no acute distress, answers questions appropriately - Head Head exam: Present: atraumatic, normocephalic - Eye Eye exam: Present: PERRL, conjuntiva pink, sclera anicteric Pupils: Present: PERRL - Neck Neck exam general surgery: Present: supple, trachea midline. Absent: lymphadenopathy - Respiratory Respiratory exam: Present: CTAB. Absent: accessory muscle use, rales, rhonchi, wheezes - Cardiovascular Cardiovascular exam: Present: RRR, +S1, +S2. Absent: diastolic murmur, gallop, rubs, systolic murmur - GI/Abdominal GI/Abdominal exam: Present: hyperactive bowel sounds, soft, tenderness, no peritoneal signs. Absent: distended - Extremities Exam Extremities exam: Present: warm, radial pulses palpable and symetrical. Absent : calf tenderness, cyanotic, pedal edema - Neurological Exam Neurological exam: Present: CN II-XII intact, oriented X3, no focal deficits. Absent: pronater drift, facial droop, speech deficit - Skin Skin exam: Present: dry, intact Internal Medicine: Result - Labs CBC & Chem 7: 09/08/16 03:50 09/08/16 03:50 Labs: Short CBC 09/08/16 Range/Units 03:50 WBC 7.3 (4.3-11.1) K/mcL Hgb 14.3 (12.9-16.9) g/dL Hct 42.2 (37.5-50.1) % Plt Count 340 (140-400) K/mcL Neutrophils # 4.3 (1.6-8.9) K/mcL BMP 09/08/16 03:50 Sodium 137 Potassium 3.7 Chloride 108 Carbon Dioxide 22 BUN 8 Creatinine 0.86 Glucose 104 H Calcium 8.4 L Consult Discharge Plan - Plan Referrals: [facility] [Outside]
[2016-09-09] MEDS: D5% in 0.45% NACL 1,000 ML IVC SCH ×2 (02:00→17:12)
[2016-09-09] MEDS: *HR* Enoxaparin 40 MG/0.4 ML SYRINGE SQ SCH (05:01)
[2016-09-09] MEDS: *HR* OxyCODONE Immed Rel 5 MG TABLET PO PRN (08:29)
[2016-09-09] MEDS: *HR* Promethazine 25 MG/ML VIAL IVP PRN ×2 (10:45→21:42)
--- NOTE | 2016-09-09 14:02 | Internal Med Progress Note ---
Date of Encounter: 09/09/16 Time of Encounter: 10:00 - Assessment and plan (1) Small bowel obstruction, partial Current Visit: Yes Status: Acute Assessment and plan: Patient has flatus. Consider partial small bowel obstruction. Patient has history of multiple intra-abdominal surgeries and history of small bowel obstruction previously. Prolonged hospitalization due to recurrent symptoms. - Will continue NPO, more conservative with diet advances, IV fluid - Closely monitor patient (2) HTN (hypertension) Current Visit: Yes Status: Chronic Assessment and plan: BP is stable. continue home medications Qualifiers: Hypertension type: essential hypertension Qualified Code(s): I10 - Essential (primary) hypertension (3) DVT prophylaxis Current Visit: Yes Status: Acute Assessment and plan: Lovenox subcutaneously - Time Spent With Patient 25 - 35 minutes - Subjective Interval history: Patient is a 30-year-old male admitted for small bowel obstruction. His past medical history is significant for hypertension and multiple intra-abdominal surgeries. Patient was seen and examined. Patient has flatus yesterday, but no BM. Abdominal distention and pain has improved. We will continue nothing by mouth and IV fluid. Prolonged hospitalization because of recurrent symptoms. - Constitutional Vitals: Temp Pulse Resp BP Pulse Ox 98.1 F 82 16 135/89 96 09/09/16 11:26 09/09/16 11:26 09/09/16 11:26 09/09/16 11:26 09/09/16 11:26 General appearance: Present: A&O X 3, no acute distress, answers questions appropriately - Head Head exam: Present: atraumatic, normocephalic - Eye Eye exam: Present: PERRL, conjuntiva pink, sclera anicteric Pupils: Present: PERRL - Neck Neck exam general surgery: Present: supple, trachea midline. Absent: lymphadenopathy - Respiratory Respiratory exam: Present: CTAB. Absent: accessory muscle use, rales, rhonchi, wheezes - Cardiovascular Cardiovascular exam: Present: RRR, +S1, +S2. Absent: diastolic murmur, gallop, rubs, systolic murmur - GI/Abdominal GI/Abdominal exam: Present: distended, hyperactive bowel sounds, soft, tenderness (Mild tenderness all around the belly, no guarding or rebound), no peritoneal signs - Extremities Exam Extremities exam: Present: warm, radial pulses palpable and symetrical. Absent : calf tenderness, cyanotic, pedal edema - Neurological Exam Neurological exam: Present: CN II-XII intact, oriented X3, no focal deficits. Absent: pronater drift, facial droop, speech deficit - Skin Skin exam: Present: dry, intact Internal Medicine: Result - Labs CBC & Chem 7: 09/08/16 03:50 09/08/16 03:50 Consult Discharge Plan - Plan Referrals: [facility] [Outside]
[2016-09-09] MEDS: Ketorolac 30 MG/ML VIAL IVP PRN ×2 (14:27→21:30)
[2016-09-10] MEDS: D5% in 0.45% NACL 1,000 ML IVC SCH ×3 (05:20→17:00)
[2016-09-10] MEDS: *HR* Enoxaparin 40 MG/0.4 ML SYRINGE SQ SCH (05:20)
[2016-09-10] MEDS: Ketorolac 30 MG/ML VIAL IVP PRN ×2 (11:33→19:42)
[2016-09-10] MEDS: *HR* Promethazine 25 MG/ML VIAL IVP PRN ×2 (13:54→19:42)
--- NOTE | 2016-09-10 15:37 | Internal Med Progress Note ---
Date of Encounter: 09/10/16 Time of Encounter: 10:00 - Assessment and plan (1) Small bowel obstruction, partial Current Visit: Yes Status: Acute Assessment and plan: Patient has flatus. Consider partial small bowel obstruction. Patient has history of multiple intra-abdominal surgeries and history of small bowel obstruction previously. Prolonged hospitalization due to recurrent symptoms. - Will continue NPO, more conservative with diet advances, IV fluid - Closely monitor patient (2) HTN (hypertension) Current Visit: Yes Status: Chronic Assessment and plan: BP is stable. continue home medications Qualifiers: Hypertension type: essential hypertension Qualified Code(s): I10 - Essential (primary) hypertension (3) DVT prophylaxis Current Visit: Yes Status: Acute Assessment and plan: Lovenox subcutaneously (4) UTI (urinary tract infection) Current Visit: Yes Status: Acute Assessment and plan: No symptoms now. Finished 5 day course of cipro for uncomplicated UTI Qualifiers: Urinary tract infection type: acute cystitis Hematuria presence: without hematuria Qualified Code(s): N30.00 - Acute cystitis without hematuria - Time Spent With Patient 25 - 35 minutes - Subjective Interval history: Patient is a 30-year-old male admitted for small bowel obstruction. His past medical history is significant for hypertension and multiple intra-abdominal surgeries. Patient was seen and examined. Patient has flatus yesterday, but no BM. Still c/o abd pain and distention. We will continue nothing by mouth and IV fluid. Prolonged hospitalization because of recurrent symptoms. - Constitutional Vitals: Temp Pulse Resp BP Pulse Ox 97.9 F 81 14 133/88 99 09/10/16 11:25 09/10/16 11:25 09/10/16 11:25 09/10/16 11:25 09/10/16 11:25 General appearance: Present: A&O X 3, no acute distress, answers questions appropriately - Head Head exam: Present: atraumatic, normocephalic - Eye Eye exam: Present: PERRL, conjuntiva pink, sclera anicteric Pupils: Present: PERRL - Neck Neck exam general surgery: Present: supple, trachea midline. Absent: lymphadenopathy - Respiratory Respiratory exam: Present: CTAB. Absent: accessory muscle use, rales, rhonchi, wheezes - Cardiovascular Cardiovascular exam: Present: RRR, +S1, +S2. Absent: diastolic murmur, gallop, rubs, systolic murmur - GI/Abdominal GI/Abdominal exam: Present: normal bowel sounds, soft, no peritoneal signs. Absent: distended, tenderness - Extremities Exam Extremities exam: Present: warm, radial pulses palpable and symetrical. Absent : calf tenderness, cyanotic, pedal edema - Neurological Exam Neurological exam: Present: CN II-XII intact, oriented X3, no focal deficits. Absent: pronater drift, facial droop, speech deficit - Skin Skin exam: Present: dry, intact Internal Medicine: Result - Labs CBC & Chem 7: 09/08/16 03:50 09/08/16 03:50 Consult Discharge Plan - Plan Referrals: [facility] [Outside]
[2016-09-10] MEDS: *HR* OxyCODONE Immed Rel 5 MG TABLET PO PRN (22:14)
[2016-09-11] MEDS: *HR* Promethazine 25 MG/ML VIAL IVP PRN ×3 (01:32→18:56)
[2016-09-11] MEDS: Ketorolac 30 MG/ML VIAL IVP PRN ×2 (01:32→10:44)
[2016-09-11] MEDS: D5% in 0.45% NACL 1,000 ML IVC SCH ×3 (01:34→23:56)
[2016-09-11] MEDS: *HR* Enoxaparin 40 MG/0.4 ML SYRINGE SQ SCH (05:29)
[2016-09-11 05:58] LABS: Basophils # 0.1 K/mcL (0.0-0.2); Basophils % 0.7 %; Eosinophils # 0.4 K/mcL (0.0-0.6); Eosinophils % 4.6 %; Hematocrit 44.4 % (37.5-50.1); Hemoglobin 15.4 g/dL (12.9-16.9); Immature Granulocytes % 0.2 % (0-4); Lymphocytes # 3.1 K/mcL (0.6-4.6); Lymphocytes % 35.1 %; Mean Corpuscular HGB Conc 34.7 g/dL (31.6-35.5); Mean Corpuscular Hemoglobin 29.7 pg (28.0-33.3); Mean Corpuscular Volume 85.5 fL (83.0-100.0); Mean Platelet Volume 9.2 fL (9.4-12.4); Monocytes # 0.7 K/mcL (0.0-1.3); Monocytes % 7.7 %; Neutrophils # 4.5 K/mcL (1.6-8.9); Platelet Count 408 K/mcL (140-400); Red Blood Count 5.19 M/mcL (4.19-5.50); Red Cell Distribution Width 13.4 % (11.5-14.5); Segmented Neutrophils % 51.7 %
[2016-09-11 06:13] LABS: BUN/Creatinine Ratio 9 (6-26); Blood Urea Nitrogen 8 mg/dL (8-26); Carbon Dioxide 25 mEq/L (19-29); Chloride 107 mEq/L (98-109); Glucose 101 mg/dL (70-99); Osmolality,Calculated 284 (280-300); Potassium 4.4 mEq/L (3.5-4.5); Sodium 138 mEq/L (136-145); eGFR For African Americans > 60 (> 60); eGFR For Non-African Americans > 60 (> 60)
[2016-09-11] MEDS: *HR* OxyCODONE Immed Rel 5 MG TABLET PO PRN (11:26)
[2016-09-11] MEDS ORDERED: Acetaminophen 325 MG TABLET PO PRN ×2 (12:00→12:04)
[2016-09-11] MEDS ORDERED: *HR* Morphine 2 MG/ML SYRINGE IVP ONE (13:55)
--- NOTE | 2016-09-11 15:59 | Internal Med Progress Note ---
Date of Encounter: 09/11/16 Time of Encounter: 10:00 - Assessment and plan (1) Small bowel obstruction, partial Current Visit: Yes Status: Acute Assessment and plan: Patient has flatus. Consider partial small bowel obstruction. Patient has history of multiple intra-abdominal surgeries and history of small bowel obstruction previously. Prolonged hospitalization due to recurrent symptoms. - Will continue NPO, more conservative with diet advances, IV fluid - Closely monitor patient (2) HTN (hypertension) Current Visit: Yes Status: Chronic Assessment and plan: BP is stable. continue home medications Qualifiers: Hypertension type: essential hypertension Qualified Code(s): I10 - Essential (primary) hypertension (3) DVT prophylaxis Current Visit: Yes Status: Acute Assessment and plan: Lovenox subcutaneously (4) UTI (urinary tract infection) Current Visit: Yes Status: Acute Assessment and plan: No symptoms. Finished 5 day course of cipro for uncomplicated UTI. Abx has been discontinued. Qualifiers: Urinary tract infection type: acute cystitis Hematuria presence: without hematuria Qualified Code(s): N30.00 - Acute cystitis without hematuria - Time Spent With Patient 25 - 35 minutes - Subjective Interval history: Patient is a 30-year-old male admitted for small bowel obstruction. His past medical history is significant for hypertension and multiple intra-abdominal surgeries. Patient was seen and examined. Patient has flatus yesterday, but no BM. Still c/o abd pain and distention. tried clear liquid diet but pt has abd pain, will go back to NPO. Repeat CT abd shows persist SBO. Will continue NPO and IVF. Prolonged hospitalization due to recurrent symptoms and slow progression. - Constitutional Vitals: Temp Pulse Resp BP Pulse Ox 97.7 F 80 16 142/73 96 09/11/16 11:54 09/11/16 11:54 09/11/16 11:54 09/11/16 11:54 09/11/16 11:54 General appearance: Present: A&O X 3, no acute distress, answers questions appropriately - Head Head exam: Present: atraumatic, normocephalic - Eye Eye exam: Present: PERRL, conjuntiva pink, sclera anicteric Pupils: Present: PERRL - Neck Neck exam general surgery: Present: supple, trachea midline. Absent: lymphadenopathy - Respiratory Respiratory exam: Present: CTAB. Absent: accessory muscle use, rales, rhonchi, wheezes - Cardiovascular Cardiovascular exam: Present: RRR, +S1, +S2. Absent: diastolic murmur, gallop, rubs, systolic murmur - GI/Abdominal GI/Abdominal exam: Present: distended, hyperactive bowel sounds, soft, tenderness (Tenderness alround belly, no guarding or rebound.), no peritoneal signs - Extremities Exam Extremities exam: Present: warm, radial pulses palpable and symetrical. Absent : calf tenderness, cyanotic, pedal edema - Neurological Exam Neurological exam: Present: CN II-XII intact, oriented X3, no focal deficits. Absent: pronater drift, facial droop, speech deficit - Skin Skin exam: Present: dry, intact Internal Medicine: Result - Labs CBC & Chem 7: 09/11/16 05:12 09/11/16 05:12 Labs: Short CBC 09/11/16 Range/Units 05:12 WBC 8.7 (4.3-11.1) K/mcL Hgb 15.4 (12.9-16.9) g/dL Hct 44.4 (37.5-50.1) % Plt Count 408 H (140-400) K/mcL Neutrophils # 4.5 (1.6-8.9) K/mcL BMP 09/11/16 05:12 Sodium 138 Potassium 4.4 Chloride 107 Carbon Dioxide 25 BUN 8 Creatinine 0.90 Glucose 101 H Calcium 9.0 - Impressions Impressions Abdomen/Pelvis CT 09/11/16 13:56 IMPRESSION: Persistent distal small bowel obstruction as discussed, without significant change from the comparison. D/ / Tk Rodríguez MD / Tk Rodríguez MD Interpreting Provider: Tk Rodríguez MD Consult Discharge Plan - Plan Referrals: [facility] [Outside]
[2016-09-11] MEDS ORDERED: *HR* Morphine 2 MG/ML SYRINGE IVP PRN (18:50)
[2016-09-11] MEDS ORDERED: Ketorolac 30 MG/ML VIAL IVP PRN (18:58)
[2016-09-11] MEDS ORDERED: *HR* OxyCODONE Immed Rel 5 MG TABLET PO PRN (19:00)
[2016-09-11] MEDS: *HR* Morphine 2 MG/ML SYRINGE IVP PRN (19:19)
[2016-09-12] MEDS: *HR* Promethazine 25 MG/ML VIAL IVP PRN ×3 (01:22→20:22)
[2016-09-12] MEDS: *HR* Morphine 2 MG/ML SYRINGE IVP PRN ×4 (01:22→20:21)
[2016-09-12] MEDS: *HR* Enoxaparin 40 MG/0.4 ML SYRINGE SQ SCH (04:23)
[2016-09-12] MEDS: D5% in 0.45% NACL 1,000 ML IVC SCH ×2 (10:44→20:22)
--- NOTE | 2016-09-12 13:54 | Internal Med Progress Note ---
Date of Encounter: 09/12/16 Time of Encounter: 13:52 - Assessment and plan (1) SBO (small bowel obstruction) Current Visit: Yes Status: Acute Assessment and plan: repeat ct still shows persistent SBO. he is passing gas and moved his bowels yesterday. will start with clears and will cautiously advance his diet this time/ will keep the iVF for now. surgery has signed off. monitor closely. (2) HTN (hypertension) Current Visit: Yes Status: Chronic Assessment and plan: BP is stable. continue home medications Qualifiers: Hypertension type: essential hypertension Qualified Code(s): I10 - Essential (primary) hypertension (3) DVT prophylaxis Current Visit: Yes Status: Acute Assessment and plan: Lovenox subcutaneously (4) UTI (urinary tract infection) Current Visit: Yes Status: Acute Assessment and plan: No symptoms. Finished 5 day course of cipro for uncomplicated UTI. Abx has been discontinued. Qualifiers: Urinary tract infection type: acute cystitis Hematuria presence: without hematuria Qualified Code(s): N30.00 - Acute cystitis without hematuria - Subjective Interval history: seen at the bedside, says he feels better today, mild sore ness in kirsten right side of his belly. no nausea or vomiting, was kept NPO last night du eto worsening abdominal pain yesterday. - Constitutional Vitals: Temp Pulse Resp BP Pulse Ox 97.9 F 66 20 121/72 97 09/12/16 11:51 09/12/16 11:51 09/12/16 11:51 09/12/16 11:51 09/12/16 11:51 General appearance: Present: A&O X 3, no acute distress, answers questions appropriately Exam: Head exam: Present: atraumatic, normocephalic - Eye Eye exam: Present: PERRL, conjuntiva pink, sclera anicteric Pupils: Present: PERRL - Neck Neck exam general surgery: Present: supple, trachea midline. Absent: lymphadenopathy - Respiratory Respiratory exam: Present: CTAB. Absent: accessory muscle use, rales, rhonchi, wheezes - Cardiovascular Cardiovascular exam: Present: RRR, +S1, +S2. Absent: diastolic murmur, gallop, rubs, systolic murmur - GI/Abdominal GI/Abdominal exam: Present: soft, tenderness(mild on the right side, no guarding or rebound.), no peritoneal signs - Extremities Exam Extremities exam: Present: warm, radial pulses palpable and symetrical. Absent : calf tenderness, cyanotic, pedal edema - Neurological Exam Neurological exam: Present: CN II-XII intact, oriented X3, no focal deficits. Absent: pronater drift, facial droop, speech deficit - Skin Skin exam: Present: dry, intact Internal Medicine: Result - Labs CBC & Chem 7: 09/11/16 05:12 09/11/16 05:12 - Impressions Impressions Abdomen/Pelvis CT 09/11/16 13:56 IMPRESSION: Persistent distal small bowel obstruction as discussed, without significant change from the comparison. D/ / Tk Rodríguez MD / Tk Rodríguez MD Interpreting Provider: Tk Rodríguez MD - VTE Documentation of Mechanical Device: Venous foot pump, device Consult Discharge Plan - Plan Referrals: [facility] [Outside]
[2016-09-13] MEDS: *HR* Promethazine 25 MG/ML VIAL IVP PRN ×2 (02:26→09:40)
[2016-09-13] MEDS: *HR* Morphine 2 MG/ML SYRINGE IVP PRN ×2 (02:26→09:40)
[2016-09-13] MEDS: *HR* Enoxaparin 40 MG/0.4 ML SYRINGE SQ SCH (04:56)
[2016-09-13] MEDS: D5% in 0.45% NACL 1,000 ML IVC SCH (07:29)
[2016-09-13 10:37] VITALS: BP 122/82
--- NOTE | 2016-09-13 12:16 | Discharge Summary ---
Date of Encounter: 09/13/16 Time of Encounter: 12:13 - Discharge Diagnosis (1) SBO (small bowel obstruction) Priority: Primary Status: Acute (2) HTN (hypertension) Priority: Secondary Status: Chronic Qualifiers: Hypertension type: essential hypertension Qualified Code(s): I10 - Essential (primary) hypertension (3) DVT prophylaxis Priority: Secondary Status: Acute (4) UTI (urinary tract infection) Priority: Primary Status: Acute Qualifiers: Urinary tract infection type: acute cystitis Hematuria presence: without hematuria Qualified Code(s): N30.00 - Acute cystitis without hematuria - Discharge Medications Prescriptions: OxyCODONE Immed Rel [Roxicodone 5 MG] 5 mg PO Q6HR PRN #20 tablet PRN Reason: Pain Home Medications: Amitriptyline [Elavil] 10 mg PO HS 09/04/16 [History] Lisinopril [Zestril] 10 mg PO DAILY 09/04/16 [History] OxyCODONE Immed Rel [Roxicodone 5 MG] 5 mg PO Q6HR PRN #20 tablet 09/13/16 [Rx] Allergies/Adverse Reactions: Allergies Amoxicillin Adverse Reaction (Verified 09/04/16 15:42) Rash Procedures/tests Complete & Pending: Procedures Performed prior 72 hours Category Date Time Status CT abd pelvis wo no iv no oral [CT] Stat Cat Scan 09/11/16 13:56 Completed Date of admission: 09/05/16 01:27 Primary care physician: PCP [place] Consults: 09/11/16 19:04 Consult to Nutrition [CONS] Routine Comment: Consulting Provider: NUTRITION Reason for Dietary Consult: Diet Education Discharging clinician: Moncho Savage Anticipated date of discharge: 09/13/16 - Patient Status Disposition: Home, Self-Care Condition: Fair Functional capacity at discharge: independent ambulation Overall status at discharge: patient is back to baseline - Discharge Instructions Instructions: Oxycodone, Rapid Release (By mouth), Chronic Hypertension (DC) Follow Up With: [facility] [Outside] - 09/24/16 1:30 pm ([address] ) - Diet and Activity Activity: resume usual activities as tolerated Diet: other (soft diet) Interval History: Mr. Davila is a 30-year-old male with a past medical history of diaphragmatic hernia at that was repaired promptly however subsequently developed strangulated bowel approximately 13 days later and had bowel resection and appendectomy at that time, full bowel obstruction in 2008 with lysis of adhesions, bilateral inguinal hernias 2013, cholecystectomy 2015, hypertension, who presented to the emergency department with signs and symptoms of small bowel obstruction that was confirmed on CT of the abdomen. Last small bowel obstruction was 7 months ago for which she was hospitalized 4 days treated conservatively with resolution of symptoms. Patient was admitted to the medical floors, surgery was consulted and was treated conservatively with IV fluids, nothing by mouth and pain medications. He should improved gradually with resolution of pain, was able to move his bowels and is tolerating diet which was advanced gradually without any worsening of abdominal pain. Patient is being discharged in stable condition today, is advised to take soft diet for another week. Hospital course: Mr. Davila is a 30 year old male Time spent discussing smoking cessation with patient: more than 10 minutes - Time Spent with Patient Total time spent providing and/or coordinating discharge services: Greater than 30 minutes - Constitutional Vitals: Temp Pulse Resp BP Pulse Ox 97.6 F 69 18 122/82 99 09/13/16 10:36 09/13/16 10:36 09/13/16 10:36 09/13/16 10:36 09/13/16 10:36 General appearance: Present: A&O X 3, no acute distress, answers questions appropriately Exam: - Eyes PERRL, normal ocular movement - ENT normal nares, normal mucosa, atraumatic, normocephalic, CN 2-12 grossly intact - Neck no bruits, trachea midline, no venous distension - Respiratory normal expansion, normal respiratory effort, clear to auscultation - Cardiovascular Cardiovascular exam: Present: RRR, no murmurs/rubs/gallops. Absent: JVD - Abdomen Abdomen general surgery: Present: bowel sounds present, soft,non tender - Neurologic Present: CN 2-12 grossly intact, normal coordination, normal sensation, deep tendon reflexes - Musculoskeletal Present: normal gait, normal posture - Psychiatric Psychiatric general surgery: Present: A&Ox3, appropriate, speech is normal, memory intact - VTE Documentation of Mechanical Device: Venous foot pump, device
== END 2016-09-13 14:36 | disposition home or self-care (01) | DRG 389 ==
LOC: 3ANU 15:30 → EMEROO 15:30 → 3ANU 23:24
PROVIDERS: ADMIT Internal Medicine; ATTEND Internal Medicine

== ENCOUNTER 2016-12-02 06:23 | Inpatient (IN) ==
[2016-12-02] MEDS ORDERED: Ondansetron 4 MG/2 ML VIAL IVP ONE ×2 (06:40→10:28)
[2016-12-02] MEDS ORDERED: *HR* Morphine 2 MG/ML SYRINGE IVP ONE ×3 (06:40→09:43)
--- NOTE | 2016-12-02 06:43 | Emergency Department Note ---
Disposition Clinical Impression: Abdominal pain Qualifiers: Abdominal location: unspecified location Qualified Code(s): R10.9 - Unspecified abdominal pain Disposition: Still a Patient Condition: Good Forms: Work/School Release, ED Satisfaction Letter Time of Disposition: 06:47 Abdominal Pain HPI - General Chief Complaint: ED Abdominal Pain Stated Complaint: abdominal pain/distention Time Seen by Provider: 12/02/16 06:33 Source: patient Mode of arrival: ambulatory Limitations: no limitations Nursing Notes Reviewed: Yes Vital Signs Reviewed: Yes - History of Present Illness HPI Narrative: 31-year-old male presents with abdominal pain. Reports waking up at 4 AM to go to the work when he started experiencing abdominal pain and nausea without any emesis. States he feels like bowel obstruction that he has experience in the past. He has had multiple surgeries for his bowel distraction as well as adhesion lysis. History of multiple hernia surgeries, cholecystectomy, appendectomy. Most of his procedures were performed by surgeon at the [facility] or in the . States he has been passing gas. He had a bowel movement yesterday. Denies any fever, recent illness, cough, chest pain or shortness of breath. Denies any urinary symptoms. He also has a history of kidney stones. Labs are sharp cramping pain that moves from the right abdomen to the left. He has not taken anything for the nausea or the pain. Patient was able to ambulate to the room without any difficulty. Patient will be signout to daytime physician. Basic labs, lipase in a urinalysis ordered. Morphine and Zofran for symptoms. Pt Subjective Complaint: abdominal pain Pain Scale: 9 - Related Data Home Medications Medication Instructions Recorded Confirmed Amitriptyline [Elavil] 50 mg PO HS 09/04/16 11/11/16 Lisinopril [Zestril] 10 mg PO DAILY 09/04/16 11/11/16 Previous Rx's Medication Instructions Recorded Dicyclomine [Bentyl] 10 mg PO QID #24 capsule 11/11/16 Metoclopramide [Reglan] 10 mg PO Q6HR #20 tablet 11/11/16 Allergies Allergy/AdvReac Type Severity Reaction Status Date / Time Amoxicillin AdvReac Rash Verified 12/02/16 06:28 All systems ED: reviewed and negative except as stated. Review of Systems: As Per HPI Constitutional: Denies: fever, chills Cardiovascular: Denies: chest pain, dyspnea on exertion Respiratory: Denies: cough, dyspnea Gastrointestinal: Reports: abdominal pain, nausea, vomiting. Denies: diarrhea, melena, hematochezia Genitourinary: Denies: urgency, dysuria Musculoskeletal: Denies: back pain, neck pain Integumentary: Denies: rash, abrasion, lesions Neurological: Denies: headache Abdominal Pain PMH - Past Medical History Medical history: Reports: hypertension, other Male Surgical History: Reports: herniorrhaphy, other Psychiatric history: Reports: no psych history - Social History Smoking status: Current every day smoker Alcohol use: Reports: occasionally Drug use: Reports: none Physical Exam - General Limitations: no limitations General appearance: alert, in no apparent distress - Head Head exam: atraumatic, normocephalic, normal inspection - Eye Eye exam: Present: normal appearance, PERRL, EOMI. Absent: scleral icterus - ENT ENT exam: normal exam, normal oropharynx, mucous membranes moist - Neck Neck exam: Present: normal inspection, full ROM, trachea midline - Chest Chest inspection: Present: normal inspection, symmetric chest wall rise. Absent : tenderness - Respiratory Respiratory exam: Present: normal lung sounds bilaterally - Cardiovascular Cardiovascular exam: Present: regular rate, normal rhythm, normal heart sounds - Abdominal Exam Abdominal exam: Present: soft, tenderness, distention, normal bowel sounds, scar (multiple). Absent: Non-Tender, guarding, rebound, rigidity Abdominal tenderness: Present: RUQ, RLQ, diffuse - Extremities Exam Extremities exam: Present: normal inspection, full ROM, normal capillary refill. Absent: tenderness, pedal edema - Back Exam Back exam: Present: normal inspection, full ROM. Absent: tenderness, CVA tenderness (R), CVA tenderness (L) - Neurological Exam Neurological exam: Present: alert, oriented X3 - Psychiatric Psychiatric exam: Present: normal affect, normal mood - Skin Skin exam: Present: warm, dry, intact, normal color Course - Reevaluation(s) Reevaluation #1: Patient reports multiple partial small bowel obstructions in the past requiring surgeries. Review of his medical records shows that he has had multiple CT of the abdomen and pelvis, last May he did have bowel destruction. Patients presenting with some abdominal tenderness and mild distention. Basic labs ordered. Morphine and Zofran for symptoms. Patient will be signout to daytime physicians Dr. Alegria. Time: 06:46 Vital Signs Temperature 97.4 F L 12/02/16 06:25 Pulse Rate 93 12/02/16 06:25 Respiratory Rate 16 12/02/16 06:25 Blood Pressure 163/111 12/02/16 06:25 O2 Sat by Pulse Oximetry 100 12/02/16 06:25 Temperature 97.4 F L 12/02/16 06:25 Pulse Rate 93 12/02/16 06:25 Respiratory Rate 16 12/02/16 06:25 Blood Pressure 163/111 12/02/16 06:25 O2 Sat by Pulse Oximetry 100 12/02/16 06:25 Oxygen Delivery Oxygen Delivery Room Air Abdominal Pain - Medical Records Medical records reviewed: Yes I reviewed the patient's medical records. Vivek - Vivek Situation: Demographics, MOA Background: Presenting Complaint, Relevant PMH, Meds, & Allergies Assessment: Vital Signs, Course and respsone to treatment, Exam Concerns, Patient/Family Expectation, Pertinant Lab Results, Outstanding Labs Recommendation: Barrier(s) to disposition, Recommendation based on pending studies, treatments, or consults S.Anthony Report Given to: Dr. Raji Doyle Repor Time: 06:48 Attestation Statement - Attestation Attestation: I, Neil Wood MD, personally evaluated this patient and discussed their management with the resident physician. I reviewed the resident's note and agree with the documented findings, medical decision making, and plan of care. 31-year-old male with history of multiple abdominal surgeries and multiple partial bowel obstructions and multiple episodes of bilious. He presents to the emergency department this morning complaining that while on his way to work this morning he developed some crampy abdominal pain about 1-2 hours prior to arrival here in the emergency department. He complains of nausea but no vomiting. No diarrhea. He is passing gas. On examination patient is a well-developed well-nourished well-appearing male in no acute distress. He does appear to be in mild to moderate discomfort. He is alert and oriented 3. There is no cyanosis or diaphoresis. Breath sounds are clear and equal bilaterally. Heart regular rate and rhythm. Abdomen is soft with moderate diffuse tenderness. Bowel sounds are decreased. No distention noted. Abdominal pain workup initiated and patient is being signed out to oncoming dayshift team under Dr. Alegria.
[2016-12-02 06:51] LABS: Basophils # 0.1 K/mcL (0.0-0.2); Basophils % 0.6 %; Eosinophils # 0.2 K/mcL (0.0-0.6); Hematocrit 47.9 % (37.5-50.1); Hemoglobin 15.9 g/dL (12.9-16.9); Immature Granulocytes % 0.4 % (0-4); Lymphocytes # 2.3 K/mcL (0.6-4.6); Lymphocytes % 28.7 %; Mean Corpuscular HGB Conc 33.2 g/dL (31.6-35.5); Mean Corpuscular Hemoglobin 29.1 pg (28.0-33.3); Mean Corpuscular Volume 87.6 fL (83.0-100.0); Mean Platelet Volume 9.1 fL (9.4-12.4); Monocytes # 0.6 K/mcL (0.0-1.3); Monocytes % 7.7 %; Neutrophils # 4.9 K/mcL (1.6-8.9); Platelet Count 400 K/mcL (140-400); Red Blood Count 5.47 M/mcL (4.19-5.50); Red Cell Distribution Width 12.9 % (11.5-14.5); Segmented Neutrophils % 60.6 %
[2016-12-02 07:04] LABS: Alanine Aminotransferase 23 Units/L (0-55); Albumin 4.5 g/dL (3.5-5.0); Albumin/Globulin Ratio 1.3 (1.1-2.2); Alkaline Phosphatase 69 Units/L (38-126); Aspartate Amino Transferase 17 Units/L (5-34); BUN/Creatinine Ratio 14 (6-26); Bilirubin,Direct 0.1 mg/dL (0.0-0.5); Bilirubin,Indirect 0.3 mg/dL (0.0-1.2); Bilirubin,Total 0.4 mg/dL (0.2-1.2); Blood Urea Nitrogen 13 mg/dL (8-26); Calcium 10.7 mg/dL (8.6-10.8); Carbon Dioxide 24 mEq/L (19-29); Chloride 104 mEq/L (98-109); Globulin 3.5 g/dL (2.4-3.5); Glucose 99 mg/dL (70-99); Lipase 23 Units/L (8-78); Osmolality,Calculated 286 (280-300); Potassium 3.6 mEq/L (3.5-4.5); Sodium 138 mEq/L (136-145); eGFR For African Americans > 60 (> 60); eGFR For Non-African Americans > 60 (> 60)
[2016-12-02 07:08] LABS: Bilirubin,Urine Negative (Negative); Blood,Urine Negative (Negative); Clarity,Urine Clear (Clear); Color,Urine Yellow (Yellow); Glucose,Urine (UA) Normal (Normal); Ketones,Urine Negative (Negative); Leukocyte Esterase,Urine Negative (Negative); Nitrite,Urine Negative (Negative); Protein,Urine Negative (Neg-Trace); Specific Gravity,Urine 1.024 (1.010-1.025); Urobilinogen,Urine Normal (Normal)
[2016-12-02] MEDS ORDERED: *HR* Promethazine 25 MG/ML VIAL IVP ONE (07:34)
--- NOTE | 2016-12-02 07:52 | Emergency Department Note ---
Disposition Clinical Impression: Small bowel obstruction Abdominal pain Qualifiers: Abdominal location: unspecified location Qualified Code(s): R10.9 - Unspecified abdominal pain Disposition: Admitted As Inpatient Condition: Good Abdominal Pain HPI - General Chief Complaint: ED Abdominal Pain Stated Complaint: abdominal pain/distention Time Seen by Provider: 12/02/16 06:33 Source: patient Mode of arrival: ambulatory Limitations: no limitations Nursing Notes Reviewed: Yes Vital Signs Reviewed: Yes - History of Present Illness HPI Narrative: Patient here for evaluation of upper abdominal distention as well as right- sided abdominal pain. 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 Patient has had surgery for small bowel obstruction as well as inguinal hernia repairs. Symptoms started while he was on his way to work after eating any triggering bar. Patient describes significant amount of nausea that was uncontrolled with his initial dose of pain medications as well as nausea medicine that was given by the day team. No fever or chills. No chest pain or shortness of breath. No difficulty with urination. Pt Subjective Complaint: abdominal pain Pain Scale: 9 - Related Data Home Medications Medication Instructions Recorded Confirmed Amitriptyline [Elavil] 50 mg PO HS 09/04/16 12/02/16 Lisinopril [Zestril] 10 mg PO DAILY 09/04/16 12/02/16 Pantoprazole Sodium [Protonix] 40 mg PO DAILY 12/02/16 12/02/16 Allergies Allergy/AdvReac Type Severity Reaction Status Date / Time Amoxicillin AdvReac Rash Verified 12/02/16 06:28 Constitutional: Denies: fever, chills Cardiovascular: Denies: chest pain, dyspnea on exertion Respiratory: Denies: cough, dyspnea Gastrointestinal: Reports: abdominal pain, nausea, vomiting. Denies: diarrhea, melena, hematochezia Genitourinary: Denies: urgency, dysuria Musculoskeletal: Denies: back pain, neck pain Integumentary: Denies: rash, abrasion, lesions Neurological: Denies: headache Abdominal Pain PMH - Past Medical History Medical history: Reports: hypertension, other Male Surgical History: Reports: herniorrhaphy, other Psychiatric history: Reports: no psych history - Social History Smoking status: Current every day smoker Alcohol use: Reports: occasionally Drug use: Reports: none Physical Exam General appearance: NAD, conversant Eyes: anicteric sclerae, moist conjunctivae; PERRL HENT: Atraumatic; oropharynx clear with moist mucous membranes and no mucosal ulcerations Neck: Normal inspection; Trachea midline; FROM, supple Lungs: CTA, with normal respiratory effort and no intercostal retractions CV: RRR, no MRGs Abdomen: Soft, mild distention with mild right-sided abdominal tenderness Extremities: No peripheral edema or extremity lymphadenopathy Skin: Normal temperature; no rash, ulcers or lesions Psych: Appropriate mood and affect Neuro: alert and oriented to person, place and time - General Limitations: no limitations General appearance: alert, in no apparent distress Course - Reevaluation(s) Reevaluation #1: Patient continues to have right-sided abdominal pain. Nausea has been controlled. Patient refusing NG tube at this time as he has had them in the past. He will notify us if needed. - Consultations Consultation #1: Discussed with Dr. Clancy. Patient to be admitted to hospitalist service. Recommends NG tube if nausea is not controlled. Consultation #2: Discussed with hospitalist. Patient accepted for admission. Vital Signs Temperature 97.4 F L 12/02/16 06:25 Pulse Rate 93 12/02/16 06:25 Respiratory Rate 16 12/02/16 06:25 Blood Pressure 163/111 12/02/16 06:25 O2 Sat by Pulse Oximetry 100 12/02/16 06:25 Temperature 97.7 F 12/06/16 15:02 Pulse Rate 67 12/06/16 15:02 Respiratory Rate 14 12/06/16 15:02 Blood Pressure 145/83 12/06/16 15:02 O2 Sat by Pulse Oximetry 98 12/06/16 15:02 Oxygen Delivery Oxygen Delivery Room Air Abdominal Pain - Lab Data Result diagrams: 12/03/16 05:30 12/05/16 05:07 Lab Results 12/02/16 12/02/16 12/02/16 Range/Units 06:40 06:40 06:52 WBC 8.0 (4.3-11.1) K/mcL RBC 5.47 (4.19-5.50) M/mcL Hgb 15.9 (12.9-16.9) g/dL Hct 47.9 (37.5-50.1) % MCV 87.6 (83.0-100.0) fL MCH 29.1 (28.0-33.3) pg MCHC 33.2 (31.6-35.5) g/dL RDW 12.9 (11.5-14.5) % Plt Count 400 (140-400) K/mcL MPV 9.1 L (9.4-12.4) fL Immature Gran % 0.4 (0-4) % Seg Neutrophils % 60.6 % Lymphocytes % 28.7 % Monocytes % 7.7 % Eosinophils % 2.0 % Basophils % 0.6 % Neutrophils # 4.9 (1.6-8.9) K/mcL Lymphocytes # 2.3 (0.6-4.6) K/mcL Monocytes # 0.6 (0.0-1.3) K/mcL Eosinophils # 0.2 (0.0-0.6) K/mcL Basophils # 0.1 (0.0-0.2) K/mcL PT (9.4-12.1) Seconds INR Sodium 138 (136-145) mEq/L Potassium 3.6 (3.5-4.5) mEq/L Chloride 104 (98-109) mEq/L Carbon Dioxide 24 (19-29) mEq/L BUN 13 (8-26) mg/dL Creatinine 0.94 (0.72-1.25) mg/dL Est GFR ( Amer) > 60 (> 60) Est GFR (Non-Af Amer) > 60 (> 60) BUN/Creatinine Ratio 14 (6-26) Glucose 99 (70-99) mg/dL Calculated Osmolality 286 (280-300) Calcium 10.7 (8.6-10.8) mg/dL Total Bilirubin 0.4 (0.2-1.2) mg/dL Direct Bilirubin 0.1 (0.0-0.5) mg/dL Indirect Bilirubin 0.3 (0.0-1.2) mg/dL AST 17 (5-34) Units/L ALT 23 (0-55) Units/L Alkaline Phosphatase 69 (38-126) Units/L Serum Total Protein 8.0 (6.0-8.3) g/dL Albumin 4.5 (3.5-5.0) g/dL Globulin 3.5 (2.4-3.5) g/dL Albumin/Globulin Ratio 1.3 (1.1-2.2) Lipase 23 (8-78) Units/L Urine Color Yellow (Yellow) Urine Clarity Clear (Clear) Urine pH 6.0 (5.0-8.0) pH Units Ur Specific [place] 1.024 (1.010-1.025) Urine Protein Negative (Neg-Trace) mg/dL Urine Glucose (UA) Normal (Normal) mg/dL Urine Ketones Negative (Negative) mg/dL Urine Blood Negative (Negative) Urine Nitrite Negative (Negative) Urine Bilirubin Negative (Negative) Urine Urobilinogen Normal (Normal) mg/dL Ur Leukocyte Esterase Negative (Negative) Ur Culture Indicated? NO (NO) 12/02/16 Range/Units 10:28 WBC (4.3-11.1) K/mcL RBC (4.19-5.50) M/mcL Hgb (12.9-16.9) g/dL Hct (37.5-50.1) % MCV (83.0-100.0) fL MCH (28.0-33.3) pg MCHC (31.6-35.5) g/dL RDW (11.5-14.5) % Plt Count (140-400) K/mcL MPV (9.4-12.4) fL Immature Gran % (0-4) % Seg Neutrophils % % Lymphocytes % % Monocytes % % Eosinophils % % Basophils % % Neutrophils # (1.6-8.9) K/mcL Lymphocytes # (0.6-4.6) K/mcL Monocytes # (0.0-1.3) K/mcL Eosinophils # (0.0-0.6) K/mcL Basophils # (0.0-0.2) K/mcL PT 11.1 (9.4-12.1) Seconds INR 1.0 Sodium (136-145) mEq/L Potassium (3.5-4.5) mEq/L Chloride (98-109) mEq/L Carbon Dioxide (19-29) mEq/L BUN (8-26) mg/dL Creatinine (0.72-1.25) mg/dL Est GFR ( Amer) (> 60) Est GFR (Non-Af Amer) (> 60) BUN/Creatinine Ratio (6-26) Glucose (70-99) mg/dL Calculated Osmolality (280-300) Calcium (8.6-10.8) mg/dL Total Bilirubin (0.2-1.2) mg/dL Direct Bilirubin (0.0-0.5) mg/dL Indirect Bilirubin (0.0-1.2) mg/dL AST (5-34) Units/L ALT (0-55) Units/L Alkaline Phosphatase (38-126) Units/L Serum Total Protein (6.0-8.3) g/dL Albumin (3.5-5.0) g/dL Globulin (2.4-3.5) g/dL Albumin/Globulin Ratio (1.1-2.2) Lipase (8-78) Units/L Urine Color (Yellow) Urine Clarity (Clear) Urine pH (5.0-8.0) pH Units Ur Specific [place] (1.010-1.025) Urine Protein (Neg-Trace) mg/dL Urine Glucose (UA) (Normal) mg/dL Urine Ketones (Negative) mg/dL Urine Blood (Negative) Urine Nitrite (Negative) Urine Bilirubin (Negative) Urine Urobilinogen (Normal) mg/dL Ur Leukocyte Esterase (Negative) Ur Culture Indicated? (NO)
[2016-12-02] MEDS ORDERED: Hyoscyamine SL 0.125 MG TAB.SUBL SL ONE (08:37)
--- NOTE | 2016-12-02 09:20 | Emergency Department Note ---
START Narrative - START START: I examined this patient and my medical decision-making was reviewed with the Resident Physician. I agree with the documented findings, disposition and treatment plan as described except to the extent set forth below. Patient to ED with abdominal pain. History of multiple bowel obstructions. Signed out pending labs. Patient with right-sided cramping remained in the left. CT performed and still pending at 920. CT scan shows early small bowel obstruction versus partial small bowel obstruction. We will admit.
[2016-12-02] MEDS ORDERED: *HR* HYDROmorphone (PF) 1 MG/ML SYRINGE IVP ONE (10:28)
[2016-12-02] MEDS ORDERED: 0.9 % Sodium Chloride 1,000 ML IVC ONE (10:42)
[2016-12-02 10:44] LABS: Prothrombin Time 11.1 Seconds (9.4-12.1)
[2016-12-02] MEDS: 0.9 % Sodium Chloride 1,000 ML IVC SCH ×2 (10:45→16:57)
[2016-12-02] MEDS ORDERED: Naloxone 0.4 MG/ML INJ IVP PRN (10:54)
[2016-12-02] MEDS ORDERED: *HR* Morphine 2 MG/ML SYRINGE IVP PRN (10:54)
--- NOTE | 2016-12-02 11:03 | Internal Med History&Physical ---
Date of Encounter: 12/02/16 Time of Encounter: 10:30 Assessment and Plan (1) SBO (small bowel obstruction) Current visit: No Status: Acute Patient has history of abdominal surgery. Had previous small bowel obstruction. Similar symptoms. CT abdomen confirmed a small bowel obstruction. - Patient refuses NG tube at this point, but said he would like to have one if symptoms is getting worse. - Keep nothing by mouth. - IV fluid. - Pain management. - Surgical consult informed by ER physician. (2) HTN (hypertension) Current visit: No Status: Chronic Hold the by mouth lisinopril because of nothing by mouth. Hydralazine IV as needed. Close monitor BP Qualifiers: Hypertension type: essential hypertension Qualified Code(s): I10 - Essential (primary) hypertension (3) DVT prophylaxis Current visit: No Status: Acute Heparin subcutaneously Internal Medicine - H&P: HPI Chief complaint: Abdominal pain Admitted From: Home Plans for Post Hospital Care: Home History of present illness: Mr. Davila is a 31 year old male with history of diaphragmatic hernia and inguinal hernia repair, several hospitalizations for small bowel obstruction present to ER for abdominal pain. Patient said that the pain started this morning, with nausea but no vomiting. Patient denies a fever. Patient denies shortness of breath or chest pain. In the emergency room, CT abdomen shows severe partial to early complete small bowel obstruction. Patient said that his last bowel movement was yesterday. He passing gas several minutes ago before I saw him. I discussed CODE STATUS with the patient. He is full code. Past Med Surg Social Fam HX - Past Medical History Medical history: hypertension, other Psychiatric history: no psych history - Past Surgical History Surgical History: appendectomy, cholecystectomy, herniorrhaphy (bilateral), other (adhesiolysis in 2008, for bowel obstruction, diaphragmatic hernia repair) - Social History Smoking Status: Current every day smoker Alcohol use: occasionally Drug use: none - Family History Mother Living Status: Still Living Internal Medicine - H&P: Meds Amitriptyline [Elavil] 50 mg PO HS 09/04/16 [History] Lisinopril [Zestril] 10 mg PO DAILY 09/04/16 [History] Dicyclomine [Bentyl] 10 mg PO QID #24 capsule 11/11/16 [Rx] Metoclopramide [Reglan] 10 mg PO Q6HR #20 tablet 11/11/16 [Rx] 3 Allergy/AdvReac Type Severity Reaction Status Date / Time Amoxicillin AdvReac Rash Verified 12/02/16 06:28 All Systems PM: A 10-system review of systems was performed and is negative for pertinent findings except as documented above in the HPI. - Constitutional Vitals: Temp Pulse Resp BP Pulse Ox 97.4 F L 85 16 115/77 99 12/02/16 06:25 12/02/16 10:56 12/02/16 10:56 12/02/16 10:56 12/02/16 09:09 General appearance: Present: mild distress, A&O X 3, answers questions appropriately - Head Head exam: Present: atraumatic, normocephalic - Eye Eye exam: Present: PERRL, conjuntiva pink, sclera anicteric Pupils: Present: PERRL - Neck Neck exam general surgery: Present: supple, trachea midline. Absent: lymphadenopathy - Respiratory Respiratory exam: Present: CTAB. Absent: accessory muscle use, rales, rhonchi, wheezes - Cardiovascular Cardiovascular exam: Present: RRR, +S1, +S2. Absent: diastolic murmur, gallop, rubs, systolic murmur - GI/Abdominal GI/Abdominal exam: Present: normal bowel sounds, soft, tenderness (Tenderness in four quadrant, Rt > Lt, no guarding or rebound), no peritoneal signs. Absent : distended - Extremities Exam Extremities exam: Present: warm, radial pulses palpable and symmetrical. Absent : calf tenderness, cyanotic, pedal edema - Neurological Exam Neurological exam: Present: CN II-XII intact, oriented X3, no focal deficits. Absent: pronater drift, facial droop, speech deficit - Skin Skin exam: Present: dry, intact Internal Med - H&P Results - Labs CBC & Chem 7: 12/02/16 06:40 12/02/16 06:40
[2016-12-02] MEDS: Ondansetron 4 MG/2 ML VIAL IVP PRN (13:34)
[2016-12-02] MEDS: Pantoprazole 40 MG VIAL IVP SCH (13:35)
--- NOTE | 2016-12-02 15:48 | General Surgery Consult Note ---
<Lamont Tinoco - Last Filed: 12/02/16 15:30> Date of Encounter: 12/02/16 Time of Encounter: 01:00 Assessment and Plan (1) Small bowel obstruction, partial Current Visit: No Status: Acute Imaging and clinical signs suggest partial small bowel obstruction Patient is currently refusing NGT, saying that he "knows when its bad enough for a tube" from experience States that he is here "mostly for pain control" Recommend NPO, IVF hydration Will follow with serial abdominal exams (2) Abdominal pain Current Visit: Yes Status: Acute See plan of care above Qualifiers: Abdominal location: unspecified location Qualified Code(s): R10.9 - Unspecified abdominal pain (3) DVT prophylaxis Current Visit: No Status: Acute Heparin subq History of Present Illness Reason for consult: abdominal pain History of present illness: Jey Davila is a pleasant 31 yo male with history of multiple abdominal surgeries and SBOs presented to [facility] with sharp, cramping abdominal pain that started this morning. He states that it feels like small bowel obstructions he has had in the past. He states that the pain is 9/10 in intensity at worse. It is mostly in the RLQ but occasionally has shooting pains across to the LLQ. The patient endorses nausea and anorexia, and he denies vomiting, fever, and chills. He admits to flatus, but has not had a bowel movement since yesterday. His past surgeries include: diaphragmatic hernia repair (w/ strangulated bowel) , bilateral inguinal hernia repairs, appendectomy, cholecystectomy, and lysis of adhesions. His last obstruction was in August. Past Med Surg Social Fam HX - Past Medical History Medical history: hypertension, other Psychiatric history: no psych history - Past Surgical History Surgical History: appendectomy, cholecystectomy, herniorrhaphy, other - Social History Smoking Status: Current every day smoker Alcohol use: occasionally Drug use: none - Family History Mother Living Status: Still Living Medications and Allergies Amitriptyline [Elavil] 50 mg PO HS 09/04/16 [History] Lisinopril [Zestril] 10 mg PO DAILY 09/04/16 [History] Pantoprazole Sodium [Protonix] 40 mg PO DAILY 12/02/16 [History] 3 Allergy/AdvReac Type Severity Reaction Status Date / Time Amoxicillin AdvReac Rash Verified 12/02/16 06:28 Review of Systems All systems PM: A 10-system review of systems was performed and is negative for pertinent findings except as documented above in the HPI. - Constitutional as per HPI, anorexia, no chills, no fever(s), no night sweats - Gastrointestinal as per HPI, abdominal pain, bloating, nausea, no vomiting General Surgery Exam Initial Vital Signs Temp Pulse Resp BP Pulse Ox 97.4 F L 93 16 163/111 100 12/02/16 06:25 12/02/16 06:25 12/02/16 06:25 12/02/16 06:25 12/02/16 06:25 - General physical appearance well developed, well nourished, no distress - Eyes normal ocular movement - ENT atraumatic, normocephalic - Neck trachea midline - Respiratory normal expansion, normal respiratory effort, clear to auscultation - Cardiovascular Cardiovascular exam: Present: RRR - Abdomen Abdomen general surgery: Present: bowel sounds present (hypoactive), soft, tender. Absent: guarding, rebound Abdominal Tenderness: Present: RLQ - Musculoskeletal Present: normal posture - Psychiatric Psychiatric general surgery: Present: appropriate, speech is normal Exam Initial Vital Signs Temp Pulse Resp BP Pulse Ox 97.4 F L 93 16 163/111 100 12/02/16 06:25 12/02/16 06:25 12/02/16 06:25 12/02/16 06:25 12/02/16 06:25 Results - Labs 12/02/16 06:40 12/02/16 06:40 Abnormal lab results MPV 9.1 fL (9.4-12.4) L 12/02/16 06:40 All other labs normal. - Imaging CT scan - abdomen: report reviewed ( CT/CT abd pelvis w iv and oral IMPRESSION: 1. Multiple dilated loops of small bowel, likely representing either a partial small bowel obstruction or early complete obstruction. Transition point is present in the right lower quadrant. D/ / Tk Mix MD / Tk Mix MD Interpreting Provider: Tk Mix MD Electronically signed by Tk Mix MD on 2016 10:13:43), image reviewed CT scan - pelvis: report reviewed, image reviewed Consult Discharge Plan - Plan [facility]errals: [facility] [Primary Care Provider] - <Doug Clancy M - Last Filed: 12/03/16 06:20> Date of Encounter: 12/02/16 Review of Systems All systems PM: A 10-system review of systems was performed and is negative for pertinent findings except as documented above in the HPI. General Surgery Exam Initial Vital Signs Temp Pulse Resp BP Pulse Ox 97.4 F L 93 16 163/111 100 12/02/16 06:25 12/02/16 06:25 12/02/16 06:25 12/02/16 06:25 12/02/16 06:25 Exam Initial Vital Signs Temp Pulse Resp BP Pulse Ox 97.4 F L 93 16 163/111 100 12/02/16 06:25 12/02/16 06:25 12/02/16 06:25 12/02/16 06:25 12/02/16 06:25 Results - Labs 12/02/16 06:40 12/02/16 06:40 Abnormal lab results MPV 9.1 fL (9.4-12.4) L 12/02/16 06:40 POC Glucose 95 (58-89) H 12/03/16 00:10 All other labs normal. - Attending Attestation I examined this patient and my medical decision-making was reviewed with the Resident Physician. I agree with the documented findings, disposition and treatment plan as described except to the extent set forth below. Review the above assessment and evaluation with the resident and agree with the above plan. Patient has had some distention and some mild abdominal pain symptoms with nausea. He normally has about a 2-3 times per day but his last bowel movement was yesterday. He states that he does not feel as if he needs to vomit and wanted to defer on any NG tube placement at this time. Scant bowel sounds on examination with mild distention. I personally reviewed the patient's CT scan of the abdomen and pelvis and did again recommend an NG tube but will defer until he has worsening symptoms of nausea or episodes of vomiting. Recommend serial abdominal exams and agree with IV fluid hydration.
[2016-12-02] MEDS: *HR* HYDROmorphone 2 MG/ML SYRINGE IVP PRN ×2 (16:55→20:22)
[2016-12-02] MEDS: *HR* Heparin 5,000 UNIT/ML VIAL SQ SCH (16:56)
[2016-12-02] MEDS: *HR* Promethazine 25 MG/ML VIAL IVP PRN (22:05)
[2016-12-03] MEDS: 0.9 % Sodium Chloride 1,000 ML IVC SCH ×2 (01:03→09:17)
[2016-12-03] MEDS: *HR* HYDROmorphone 2 MG/ML SYRINGE IVP PRN ×6 (04:13→21:09)
[2016-12-03] MEDS: *HR* Promethazine 25 MG/ML VIAL IVP PRN ×3 (04:13→21:09)
[2016-12-03] MEDS: *HR* Heparin 5,000 UNIT/ML VIAL SQ SCH ×2 (05:51→17:18)
[2016-12-03 06:21] LABS: Basophils % 0.2 %; Eosinophils % 0.3 %; Hematocrit 43.9 % (37.5-50.1); Hemoglobin 14.8 g/dL (12.9-16.9); Immature Granulocytes % 0.4 % (0-4); Lymphocytes # 0.9 K/mcL (0.6-4.6); Lymphocytes % 8.4 %; Mean Corpuscular HGB Conc 33.7 g/dL (31.6-35.5); Mean Corpuscular Hemoglobin 29.8 pg (28.0-33.3); Mean Corpuscular Volume 88.3 fL (83.0-100.0); Mean Platelet Volume 9.4 fL (9.4-12.4); Monocytes # 0.5 K/mcL (0.0-1.3); Monocytes % 4.3 %; Neutrophils # 9.5 K/mcL (1.6-8.9); Platelet Count 326 K/mcL (140-400); Red Blood Count 4.97 M/mcL (4.19-5.50); Red Cell Distribution Width 12.9 % (11.5-14.5); Segmented Neutrophils % 86.4 %
[2016-12-03 06:39] LABS: BUN/Creatinine Ratio 15 (6-26); Blood Urea Nitrogen 12 mg/dL (8-26); Carbon Dioxide 23 mEq/L (19-29); Chloride 107 mEq/L (98-109); Glucose 106 mg/dL (70-99); Magnesium 1.7 mg/dL (1.6-2.6); Osmolality,Calculated 282 (280-300); Sodium 136 mEq/L (136-145); eGFR For African Americans > 60 (> 60); eGFR For Non-African Americans > 60 (> 60)
[2016-12-03 06:40] LABS: Calcium 8.5 mg/dL (8.6-10.8)
--- NOTE | 2016-12-03 08:47 | General Surgery Progress Note ---
<Lamont Tinoco - Last Filed: 12/03/16 09:33> Date of Encounter: 12/03/16 Time of Encounter: 08:05 - Assessment and Plan (1) Small bowel obstruction, partial Current Visit: No Status: Acute Some clinical improvement since yesterday Patient is still refusing NGT, states that he will consider a NGT if his symptoms get worse Continue NPO, IVF hydration Will follow with serial abdominal exams (2) Abdominal pain Current Visit: Yes Status: Acute See plan of care above Qualifiers: Abdominal location: unspecified location Qualified Code(s): R10.9 - Unspecified abdominal pain (3) DVT prophylaxis Current Visit: No Status: Acute Heparin subq Subjective Patient reports: no new complaints, still having pain, voiding w/o difficulty, flatus, no bowel movement (since the last Friday () evening), afebrile Objective Vital Signs - Last 8 Hours Temp Pulse Resp BP Pulse Ox 12/03/16 07:30 99.6 F 72 18 123/80 97 12/03/16 04:03 99.5 F 93 16 131/80 93 Intake and Output 12/02/16 12/03/16 12/03/16 23:59 07:59 15:59 Intake Total 1000 / 1000 1000 / 1000 Output Total 350 / 350 350 / 350 Balance 650 / 650 650 / 650 Intake: IV Fluids 1000 / 1000 1000 / 1000 0.9 % Sodium Chloride 1, 1000 / 1000 1000 / 1000 000 ML @ 125 mls/hr IVC . Q8H [facility] Rx#:[id number] Oral 0 / 0 0 / 0 Output: Urine 350 / 350 350 / 350 Other: Meal Dinner Weight 67.642 kg Blood Glucose* 110 105 Patient Weight 12/03/16 23:59 Weight 67.642 kg - General physical appearance well developed, well nourished, no distress - Eyes normal ocular movement - ENT atraumatic, normocephalic - Neck Neck exam: trachea midline - Respiratory normal expansion, normal respiratory effort, clear to auscultation - Cardiovascular Cardiovascular exam: Present: RRR, no murmurs/rubs/gallops - Abdomen Abdomen: Present: bowel sounds present, soft, tender (pt reports 7/10 pain). Absent: guarding, rebound Abdominal Tenderness: RUQ (pt reports 9/10 intermittent cramping pain), RLQ (pt reports 9/10 intermittent cramping pain) - Musculoskeletal normal posture - Psychiatric speech is normal - Labs 12/03/16 05:30 12/03/16 05:30 Diabetes panel 12/03/16 Range/Units 05:30 Sodium 136 (136-145) mEq/L Potassium 4.0 (3.5-4.5) mEq/L Chloride 107 (98-109) mEq/L Carbon Dioxide 23 (19-29) mEq/L BUN 12 (8-26) mg/dL Creatinine 0.79 (0.72-1.25) mg/dL Glucose 106 H (70-99) mg/dL Calcium 8.5 L D (8.6-10.8) mg/dL Calcium panel 12/03/16 Range/Units 05:30 Calcium 8.5 L D (8.6-10.8) mg/dL Pituitary panel 12/03/16 Range/Units 05:30 Sodium 136 (136-145) mEq/L Potassium 4.0 (3.5-4.5) mEq/L Chloride 107 (98-109) mEq/L Carbon Dioxide 23 (19-29) mEq/L BUN 12 (8-26) mg/dL Creatinine 0.79 (0.72-1.25) mg/dL Glucose 106 H (70-99) mg/dL Calcium 8.5 L D (8.6-10.8) mg/dL Adrenal panel 12/03/16 Range/Units 05:30 Sodium 136 (136-145) mEq/L Potassium 4.0 (3.5-4.5) mEq/L Chloride 107 (98-109) mEq/L Carbon Dioxide 23 (19-29) mEq/L BUN 12 (8-26) mg/dL Creatinine 0.79 (0.72-1.25) mg/dL Glucose 106 H (70-99) mg/dL Calcium 8.5 L D (8.6-10.8) mg/dL Consult Discharge Plan - Plan [facility]errals: [facility] [Primary Care Provider] - <Doug Clancy - Last Filed: 12/03/16 15:02> Date of Encounter: 12/03/16 Objective Vital Signs - Last 8 Hours Temp Pulse Resp BP Pulse Ox 12/03/16 13:21 98.1 F 75 16 129/80 97 12/03/16 07:30 99.6 F 72 18 123/80 97 Intake and Output 12/02/16 12/03/16 12/03/16 23:59 07:59 15:59 Intake Total 1000 / 1000 1000 / 1000 1000 / 1000 Output Total 350 / 350 350 / 350 300 / 300 Balance 650 / 650 650 / 650 700 / 700 Intake: IV Fluids 1000 / 1000 1000 / 1000 1000 / 1000 0.9 % Sodium Chloride 1, 1000 / 1000 1000 / 1000 1000 / 1000 000 ML @ 125 mls/hr IVC . Q8H [facility] Rx#:[id number] Oral 0 / 0 0 / 0 0 / 0 Output: Urine 350 / 350 350 / 350 300 / 300 Other: Meal Dinner NPO Weight 67.642 kg Blood Glucose* 110 105 57 Patient Weight 12/03/16 23:59 Weight 67.642 kg - Labs 12/03/16 05:30 12/03/16 05:30 Diabetes panel 12/03/16 Range/Units 05:30 Sodium 136 (136-145) mEq/L Potassium 4.0 (3.5-4.5) mEq/L Chloride 107 (98-109) mEq/L Carbon Dioxide 23 (19-29) mEq/L BUN 12 (8-26) mg/dL Creatinine 0.79 (0.72-1.25) mg/dL Glucose 106 H (70-99) mg/dL Calcium 8.5 L D (8.6-10.8) mg/dL Calcium panel 12/03/16 Range/Units 05:30 Calcium 8.5 L D (8.6-10.8) mg/dL Pituitary panel 12/03/16 Range/Units 05:30 Sodium 136 (136-145) mEq/L Potassium 4.0 (3.5-4.5) mEq/L Chloride 107 (98-109) mEq/L Carbon Dioxide 23 (19-29) mEq/L BUN 12 (8-26) mg/dL Creatinine 0.79 (0.72-1.25) mg/dL Glucose 106 H (70-99) mg/dL Calcium 8.5 L D (8.6-10.8) mg/dL Adrenal panel 12/03/16 Range/Units 05:30 Sodium 136 (136-145) mEq/L Potassium 4.0 (3.5-4.5) mEq/L Chloride 107 (98-109) mEq/L Carbon Dioxide 23 (19-29) mEq/L BUN 12 (8-26) mg/dL Creatinine 0.79 (0.72-1.25) mg/dL Glucose 106 H (70-99) mg/dL Calcium 8.5 L D (8.6-10.8) mg/dL - Attending Attestation I examined this patient and my medical decision-making was reviewed with the Resident Physician. I agree with the documented findings, disposition and treatment plan as described except to the extent set forth below. I reviewed the physical examination and assessment as noted above with the resident and agree with the above plan. Patient admits to continued flatus. Unfortunately the patient was started on a barium small bowel follow-through this morning. Abdominal x-rays have been performed and are not yet complete. There is evidence of distended loops of small bowel however my hope is that with the patient having continued evidence of flatus that the progression of barium will continue through to the colon. We will continue with ice chips and IV fluid hydration and follow closely.
[2016-12-03] MEDS: Pantoprazole 40 MG VIAL IVP SCH (09:15)
--- NOTE | 2016-12-03 10:37 | Internal Med Progress Note ---
Date of Encounter: 12/03/16 Time of Encounter: 10:35 - Assessment and plan (1) SBO (small bowel obstruction) Current Visit: No Status: Acute Assessment and plan: Mostly due to adhesions from previous surgeries Seems to be improving cont IVF passing gas ok Will start ice chips today Also sent for Small bowel follow through If no more obstruction will start him on clear liquids today Surgery on board (2) Abdominal pain Current Visit: Yes Status: Acute Assessment and plan: due to SBO improving Qualifiers: Abdominal location: unspecified location Qualified Code(s): R10.9 - Unspecified abdominal pain (3) HTN (hypertension) Current Visit: No Status: Chronic Assessment and plan: Due to pain little better today cont IV Hydralazine PRN if SBP >160 Qualifiers: Hypertension type: essential hypertension Qualified Code(s): I10 - Essential (primary) hypertension (4) DVT prophylaxis Current Visit: No Status: Acute Assessment and plan: on SQ heparin - Subjective Interval history: Jey Davila is a pleasant 31 yo male with history of multiple abdominal surgeries and SBOs presented to [facility] with sharp, cramping abdominal pain that started since Friday evening. He states that it feels like small bowel obstructions he has had in the past. He states that the pain is 9/10 in intensity at worse. It is mostly in the RLQ but occasionally has shooting pains across to the LLQ. The patient endorses nausea and anorexia, and he denies vomiting, fever, and chills. He admits to flatus, but has not had a bowel movement since yesterday. His past surgeries include: diaphragmatic hernia repair (w/ strangulated bowel), bilateral inguinal hernia repairs, appendectomy, cholecystectomy, and lysis of adhesions. His last obstruction was in August. Today his abdominal pain is better. No vomiting, still has some nausea. Passing gas ok. No BM yet. - Constitutional Vitals: Temp Pulse Resp BP Pulse Ox 99.6 F 72 18 123/80 97 12/03/16 07:30 12/03/16 07:30 12/03/16 07:30 12/03/16 07:30 12/03/16 07:30 General appearance: Present: A&O X 3, answers questions appropriately - Head Head exam: Present: atraumatic, normal inspection - Respiratory Respiratory exam: Present: CTAB. Absent: accessory muscle use, rales, rhonchi, wheezes - Cardiovascular Cardiovascular exam: Present: RRR, +S1, +S2. Absent: diastolic murmur, gallop, rubs, systolic murmur - GI/Abdominal GI/Abdominal exam: Present: hypoactive bowel sounds, soft. Absent: rebound, rigid, tenderness - Extremities Exam Extremities exam: Absent: calf tenderness, pedal edema, tenderness - Psychiatric Psychiatric exam: Present: normal affect, normal mood Internal Medicine: Result - Labs CBC & Chem 7: 12/03/16 05:30 12/03/16 05:30 Labs: Short CBC 12/03/16 Range/Units 05:30 WBC 11.0 (4.3-11.1) K/mcL Hgb 14.8 (12.9-16.9) g/dL Hct 43.9 (37.5-50.1) % Plt Count 326 (140-400) K/mcL Neutrophils # 9.5 H (1.6-8.9) K/mcL BMP 12/03/16 05:30 Sodium 136 Potassium 4.0 Chloride 107 Carbon Dioxide 23 BUN 12 Creatinine 0.79 Glucose 106 H Calcium 8.5 L D - ABG Interpretation ABG results: PT/INR, D-dimer PT 11.1 Seconds (9.4-12.1) 12/02/16 10:28 Consult Discharge Plan - Plan [facility]errals: [facility] [Primary Care Provider] -
[2016-12-03] MEDS: Ondansetron 4 MG/2 ML VIAL IVP PRN (10:43)
[2016-12-04] MEDS: *HR* HYDROmorphone 2 MG/ML SYRINGE IVP PRN ×7 (02:17→20:50)
[2016-12-04] MEDS: *HR* Promethazine 25 MG/ML VIAL IVP PRN ×2 (04:56→20:50)
[2016-12-04] MEDS: *HR* Heparin 5,000 UNIT/ML VIAL SQ SCH ×2 (04:57→17:19)
[2016-12-04] MEDS: 0.9 % Sodium Chloride 1,000 ML IVC SCH ×2 (04:58→13:15)
[2016-12-04 05:52] LABS: BUN/Creatinine Ratio 14 (6-26); Blood Urea Nitrogen 10 mg/dL (8-26); Calcium 7.9 mg/dL (8.6-10.8); Carbon Dioxide 22 mEq/L (19-29); Chloride 107 mEq/L (98-109); Glucose 73 mg/dL (70-99); Osmolality,Calculated 278 (280-300); Potassium 4.4 mEq/L (3.5-4.5); eGFR For African Americans > 60 (> 60); eGFR For Non-African Americans > 60 (> 60)
[2016-12-04 06:08] LABS: Sodium 135 mEq/L (136-145)
[2016-12-04] MEDS: Pantoprazole 40 MG VIAL IVP SCH (08:03)
--- NOTE | 2016-12-04 11:31 | General Surgery Progress Note ---
<Lamont Tinoco - Last Filed: 12/04/16 16:37> Date of Encounter: 12/04/16 Time of Encounter: 11:28 - Assessment and Plan (1) Small bowel obstruction, partial Current Visit: No Status: Acute Patient continues to improve Patient tolerated clear liquids today for lunch without significant change in pain Denies nausea/vomiting Continues to have flatus Barium from SBFT has progressed to colon Stil has some dilated bowel loops in the right abdomen Plan to increase diet to full liquids for dinner, will advance to softs tomorrow for lunch if he tolerates Will continue serial abdominal exams (2) Abdominal pain Current Visit: Yes Status: Acute See plan of care above Qualifiers: Abdominal location: unspecified location Qualified Code(s): R10.9 - Unspecified abdominal pain (3) DVT prophylaxis Current Visit: No Status: Acute Heparin subq Subjective Patient reports: no new complaints, still having pain, pain is less, voiding w/ o difficulty, flatus, no bowel movement, nausea (improving), afebrile Objective Vital Signs - Last 8 Hours Temp Pulse Resp BP Pulse Ox 12/04/16 06:47 97.8 F 81 20 122/72 94 12/04/16 04:51 97.5 F L 85 16 96/56 95 Intake and Output 12/03/16 12/04/16 12/04/16 23:59 07:59 15:59 Intake Total 1000 / 1000 0 / 0 0 / 0 Output Total 300 / 300 300 / 300 800 / 800 Balance 700 / 700 -300 / -300 -800 / -800 Intake: IV Fluids 1000 / 1000 0.9 % Sodium Chloride 1, 1000 / 1000 000 ML @ 125 mls/hr IVC . Q8H [facility] Rx#:[id number] Oral 0 / 0 0 / 0 0 / 0 Output: Urine 300 / 300 300 / 300 800 / 800 Other: Meal NPO Percent of Meal Consumed 0% Weight 68.3 kg Blood Glucose* 61 73 Patient Weight 12/04/16 23:59 Weight 68.3 kg - General physical appearance well developed, well nourished, no distress - Eyes normal ocular movement - ENT atraumatic, normocephalic - Neck Neck exam: trachea midline - Respiratory normal expansion, normal respiratory effort, clear to auscultation - Cardiovascular Cardiovascular exam: Present: RRR - Abdomen Abdomen: Present: bowel sounds present, soft, tender (improving R > L) - Labs 12/03/16 05:30 12/04/16 04:41 Diabetes panel 12/04/16 Range/Units 04:41 Sodium 135 L (136-145) mEq/L Potassium 4.4 (3.5-4.5) mEq/L Chloride 107 (98-109) mEq/L Carbon Dioxide 22 (19-29) mEq/L BUN 10 (8-26) mg/dL Creatinine 0.74 (0.72-1.25) mg/dL Glucose 73 (70-99) mg/dL Calcium 7.9 L (8.6-10.8) mg/dL Calcium panel 12/04/16 Range/Units 04:41 Calcium 7.9 L (8.6-10.8) mg/dL Pituitary panel 12/04/16 Range/Units 04:41 Sodium 135 L (136-145) mEq/L Potassium 4.4 (3.5-4.5) mEq/L Chloride 107 (98-109) mEq/L Carbon Dioxide 22 (19-29) mEq/L BUN 10 (8-26) mg/dL Creatinine 0.74 (0.72-1.25) mg/dL Glucose 73 (70-99) mg/dL Calcium 7.9 L (8.6-10.8) mg/dL Adrenal panel 12/04/16 Range/Units 04:41 Sodium 135 L (136-145) mEq/L Potassium 4.4 (3.5-4.5) mEq/L Chloride 107 (98-109) mEq/L Carbon Dioxide 22 (19-29) mEq/L BUN 10 (8-26) mg/dL Creatinine 0.74 (0.72-1.25) mg/dL Glucose 73 (70-99) mg/dL Calcium 7.9 L (8.6-10.8) mg/dL Consult Discharge Plan - Plan Referrals: [facility]P [Primary Care Provider] - <Doug Clancy - Last Filed: 12/05/16 07:32> Date of Encounter: 12/04/16 Objective Vital Signs - Last 8 Hours Temp Pulse Resp BP Pulse Ox 12/05/16 06:54 97.6 F 77 18 126/76 95 12/05/16 03:33 97.6 F 68 16 119/71 95 Intake and Output 12/04/16 12/04/16 12/05/16 15:59 23:59 07:59 Intake Total 1140 / 1140 917 / 917 1120 / 1120 Output Total 1225 / 1225 1100 / 1100 450 / 450 Balance -85 / -85 -183 / -183 670 / 670 Intake: IV Fluids 900 / 900 437 / 437 1000 / 1000 0.9 % Sodium Chloride 1, 900 / 900 437 / 437 1000 / 1000 000 ML @ 75 mls/hr IVC . [id number] [facility] Rx#: [id number] Oral 240 / 240 480 / 480 120 / 120 Output: Urine 1225 / 1225 1100 / 1100 450 / 450 Other: Meal NPO Full Percent of Meal Consumed 0% 50% Weight 68.039 kg Patient Weight 12/05/16 23:59 Weight 68.039 kg - Labs 12/03/16 05:30 12/05/16 05:07 Diabetes panel 12/05/16 Range/Units 05:07 Sodium 137 (136-145) mEq/L Potassium 4.0 (3.5-4.5) mEq/L Chloride 108 (98-109) mEq/L Carbon Dioxide 23 (19-29) mEq/L BUN 9 (8-26) mg/dL Creatinine 0.80 (0.72-1.25) mg/dL Glucose 96 (70-99) mg/dL Calcium 8.7 (8.6-10.8) mg/dL Calcium panel 12/05/16 Range/Units 05:07 Calcium 8.7 (8.6-10.8) mg/dL Pituitary panel 12/05/16 Range/Units 05:07 Sodium 137 (136-145) mEq/L Potassium 4.0 (3.5-4.5) mEq/L Chloride 108 (98-109) mEq/L Carbon Dioxide 23 (19-29) mEq/L BUN 9 (8-26) mg/dL Creatinine 0.80 (0.72-1.25) mg/dL Glucose 96 (70-99) mg/dL Calcium 8.7 (8.6-10.8) mg/dL Adrenal panel 12/05/16 Range/Units 05:07 Sodium 137 (136-145) mEq/L Potassium 4.0 (3.5-4.5) mEq/L Chloride 108 (98-109) mEq/L Carbon Dioxide 23 (19-29) mEq/L BUN 9 (8-26) mg/dL Creatinine 0.80 (0.72-1.25) mg/dL Glucose 96 (70-99) mg/dL Calcium 8.7 (8.6-10.8) mg/dL - Attending Attestation I examined this patient and my medical decision-making was reviewed with the Resident Physician. I agree with the documented findings, disposition and treatment plan as described except to the extent set forth below. Review the assessment and evaluation with resident and agree with the above plan. Patient has been having flatus but does admit to some mild distention. No nausea mild tenderness palpation. Will advance to full liquids today and observe overnight.
--- NOTE | 2016-12-04 12:08 | Internal Med Progress Note ---
Date of Encounter: 12/04/16 Time of Encounter: 11:30 - Assessment and plan (1) SBO (small bowel obstruction) Current Visit: No Status: Acute Assessment and plan: Mostly due to adhesions from previous surgeries Seems to be improving cont IVF passing gas ok Surgery cleared him for clear liquid diet Reviewed Small bowel follow through - very slow transient time noticed, still has partial obstruction will do f/u abdomen x ray today Surgery on board (2) Abdominal pain Current Visit: Yes Status: Acute Assessment and plan: due to SBO improving Qualifiers: Abdominal location: unspecified location Qualified Code(s): R10.9 - Unspecified abdominal pain (3) HTN (hypertension) Current Visit: No Status: Chronic Assessment and plan: Due to pain little better today cont IV Hydralazine PRN if SBP >160 Qualifiers: Hypertension type: essential hypertension Qualified Code(s): I10 - Essential (primary) hypertension (4) DVT prophylaxis Current Visit: No Status: Acute Assessment and plan: on SQ heparin - Subjective Interval history: Jey Davila is a pleasant 31 yo male with history of multiple abdominal surgeries and SBOs presented to [facility] with sharp, cramping abdominal pain that started since Friday evening. He states that it feels like small bowel obstructions he has had in the past. He states that the pain is 9/10 in intensity at worse. It is mostly in the RLQ but occasionally has shooting pains across to the LLQ. The patient endorses nausea and anorexia, and he denies vomiting, fever, and chills. He admits to flatus, but has not had a bowel movement since yesterday. His past surgeries include: diaphragmatic hernia repair (w/ strangulated bowel), bilateral inguinal hernia repairs, appendectomy, cholecystectomy, and lysis of adhesions. His last obstruction was in August. Today his abdominal pain is better. No vomiting, still has some nausea. Passing gas ok. Had small BM this morning - plain contrast only. Tolerating sips of water ok so far. - Constitutional Vitals: Temp Pulse Resp BP Pulse Ox 97.6 F 73 16 131/74 96 12/04/16 11:37 12/04/16 11:37 12/04/16 11:37 12/04/16 11:37 12/04/16 11:37 General appearance: Present: A&O X 3, answers questions appropriately - Head Head exam: Present: atraumatic, normal inspection - Respiratory Respiratory exam: Present: CTAB. Absent: respiratory distress, rhonchi, wheezes - Cardiovascular Cardiovascular exam: Present: RRR, +S1, +S2. Absent: diastolic murmur, gallop, rubs, systolic murmur - GI/Abdominal GI/Abdominal exam: Present: distended, hypoactive bowel sounds, soft. Absent: rebound, rigid, tenderness - Extremities Exam Extremities exam: Absent: calf tenderness, pedal edema, tenderness - Psychiatric Psychiatric exam: Present: normal affect, normal mood Internal Medicine: Result - Labs CBC & Chem 7: 12/03/16 05:30 12/04/16 04:41 Labs: BMP 12/04/16 04:41 Sodium 135 L Potassium 4.4 Chloride 107 Carbon Dioxide 22 BUN 10 Creatinine 0.74 Glucose 73 Calcium 7.9 L - ABG Interpretation ABG results: PT/INR, D-dimer PT 11.1 Seconds (9.4-12.1) 12/02/16 10:28 - Impressions Impressions Small Bowel X-Ray 12/03/16 10:34 IMPRESSION: Focally dilated small bowel loops in the mid abdomen measuring upwards of 5.5 cm maximally in diameter. Partial obstruction with mild delay in small bowel transit time at 4 hours . D/ / Huy Bai MD / Huy Bai MD Interpreting Provider: Huy Bai MD Consult Discharge Plan - Plan Referrals: [facility] [Primary Care Provider] -
[2016-12-05] MEDS: *HR* HYDROmorphone 2 MG/ML SYRINGE IVP PRN ×4 (04:00→20:09)
[2016-12-05] MEDS: *HR* Promethazine 25 MG/ML VIAL IVP PRN ×2 (04:00→23:43)
[2016-12-05] MEDS: 0.9 % Sodium Chloride 1,000 ML IVC SCH (04:35)
[2016-12-05] MEDS: *HR* Heparin 5,000 UNIT/ML VIAL SQ SCH ×2 (04:36→18:02)
[2016-12-05 06:10] LABS: BUN/Creatinine Ratio 11 (6-26); Blood Urea Nitrogen 9 mg/dL (8-26); Calcium 8.7 mg/dL (8.6-10.8); Carbon Dioxide 23 mEq/L (19-29); Chloride 108 mEq/L (98-109); Glucose 96 mg/dL (70-99); Osmolality,Calculated 283 (280-300); Sodium 137 mEq/L (136-145); eGFR For African Americans > 60 (> 60); eGFR For Non-African Americans > 60 (> 60)
[2016-12-05] MEDS: Pantoprazole 40 MG VIAL IVP SCH (09:46)
--- NOTE | 2016-12-05 12:15 | General Surgery Progress Note ---
Date of Encounter: 12/06/16 Time of Encounter: 12:14 - Assessment and Plan (1) Small bowel obstruction, partial Current Visit: No Status: Acute We will continue with the full liquids at this time. I will add stool softeners to help with bowel movements. I explained to the patient that he still has signs of partial bowel junction and my hope is that with continued full liquids and clear liquids we can flush and remaining barium out of his system to see if this will help with some what of resolution of his current symptoms. I did also explain that he still may require surgical intervention. Subjective Patient reports: other (The patient states that he is still having flatus but admits to some distension. No nausea. Mild pain.) Objective Vital Signs - Last 8 Hours Temp Pulse Resp BP Pulse Ox 12/05/16 11:11 98.0 F 80 18 133/85 99 12/05/16 06:54 97.6 F 77 18 126/76 95 Intake and Output 12/04/16 12/05/16 12/05/16 23:59 07:59 15:59 Intake Total 917 / 917 1120 / 1120 0 / 0 Output Total 1100 / 1100 450 / 450 1000 / 1000 Balance -183 / -183 670 / 670 -1000 / -1000 Intake: IV Fluids 437 / 437 1000 / 1000 0.9 % Sodium Chloride 1, 437 / 437 1000 / 1000 000 ML @ 75 mls/hr IVC . [id number] [facility] Rx#: [id number] Oral 480 / 480 120 / 120 0 / 0 Output: Urine 1100 / 1100 450 / 450 1000 / 1000 Other: Meal Full Percent of Meal Consumed 50% Weight 68.039 kg Patient Weight 12/05/16 23:59 Weight 68.039 kg - General physical appearance well nourished, no distress - Abdomen Abdomen: Present: bowel sounds present, soft (Mildly distended. Mild abdominal pain) - Labs 12/03/16 05:30 12/05/16 05:07 Diabetes panel 12/05/16 Range/Units 05:07 Sodium 137 (136-145) mEq/L Potassium 4.0 (3.5-4.5) mEq/L Chloride 108 (98-109) mEq/L Carbon Dioxide 23 (19-29) mEq/L BUN 9 (8-26) mg/dL Creatinine 0.80 (0.72-1.25) mg/dL Glucose 96 (70-99) mg/dL Calcium 8.7 (8.6-10.8) mg/dL Calcium panel 12/05/16 Range/Units 05:07 Calcium 8.7 (8.6-10.8) mg/dL Pituitary panel 12/05/16 Range/Units 05:07 Sodium 137 (136-145) mEq/L Potassium 4.0 (3.5-4.5) mEq/L Chloride 108 (98-109) mEq/L Carbon Dioxide 23 (19-29) mEq/L BUN 9 (8-26) mg/dL Creatinine 0.80 (0.72-1.25) mg/dL Glucose 96 (70-99) mg/dL Calcium 8.7 (8.6-10.8) mg/dL Adrenal panel 12/05/16 Range/Units 05:07 Sodium 137 (136-145) mEq/L Potassium 4.0 (3.5-4.5) mEq/L Chloride 108 (98-109) mEq/L Carbon Dioxide 23 (19-29) mEq/L BUN 9 (8-26) mg/dL Creatinine 0.80 (0.72-1.25) mg/dL Glucose 96 (70-99) mg/dL Calcium 8.7 (8.6-10.8) mg/dL Consult Discharge Plan - Plan [facility]errals: [facility] [Primary Care Provider] -
--- NOTE | 2016-12-05 12:54 | Internal Med Progress Note ---
Date of Encounter: 12/05/16 Time of Encounter: 12:50 - Assessment and plan (1) SBO (small bowel obstruction) Current Visit: No Status: Acute Assessment and plan: Mostly due to adhesions from previous surgeries Seems to be improving d/c IVF passing gas ok advanced diet to full liquid Reviewed Small bowel follow through - very slow transient time noticed, still has partial obstruction f/u abdomen x ray - barium moved to Colon..still has partial SBO He does have good BS.. agree with starting him on stool softeners Wondering high dose narcotics does not helping this SBO so cut back on Narcotic doses.. and explained this to pt. Surgery on board (2) Abdominal pain Current Visit: Yes Status: Acute Assessment and plan: due to SBO improving Qualifiers: Abdominal location: unspecified location Qualified Code(s): R10.9 - Unspecified abdominal pain (3) HTN (hypertension) Current Visit: No Status: Chronic Assessment and plan: Due to pain little better today cont IV Hydralazine PRN if SBP >160 Qualifiers: Hypertension type: essential hypertension Qualified Code(s): I10 - Essential (primary) hypertension (4) DVT prophylaxis Current Visit: No Status: Acute Assessment and plan: on SQ heparin - Subjective Interval history: Jey Davila is a pleasant 31 yo male with history of multiple abdominal surgeries and SBOs presented to [facility] with sharp, cramping abdominal pain that started since Friday evening. He states that it feels like small bowel obstructions he has had in the past. He states that the pain is 9/10 in intensity at worse. It is mostly in the RLQ but occasionally has shooting pains across to the LLQ. The patient endorses nausea and anorexia, and he denies vomiting, fever, and chills. He admits to flatus, but has not had a bowel movement since yesterday. His past surgeries include: diaphragmatic hernia repair (w/ strangulated bowel), bilateral inguinal hernia repairs, appendectomy, cholecystectomy, and lysis of adhesions. His last obstruction was in August. Today his abdominal pain is better. No vomiting, still has some nausea. Passing gas ok. No BM yet. Tolerated clear liquids well so far. - Constitutional Vitals: Temp Pulse Resp BP Pulse Ox 98.0 F 80 18 133/85 99 12/05/16 11:11 12/05/16 11:11 12/05/16 11:11 12/05/16 11:11 12/05/16 11:11 General appearance: Present: A&O X 3, answers questions appropriately - Head Head exam: Present: atraumatic, normal inspection - Respiratory Respiratory exam: Present: CTAB. Absent: accessory muscle use, rales, rhonchi, wheezes - Cardiovascular Cardiovascular exam: Present: RRR, +S1, +S2. Absent: diastolic murmur, gallop, rubs, systolic murmur - GI/Abdominal GI/Abdominal exam: Present: distended, hyperactive bowel sounds, soft. Absent: rebound, rigid, tenderness - Extremities Exam Extremities exam: Absent: calf tenderness, pedal edema, tenderness - Psychiatric Psychiatric exam: Present: normal affect, normal mood Internal Medicine: Result - Labs CBC & Chem 7: 12/03/16 05:30 12/05/16 05:07 Labs: BMP 12/05/16 05:07 Sodium 137 Potassium 4.0 Chloride 108 Carbon Dioxide 23 BUN 9 Creatinine 0.80 Glucose 96 Calcium 8.7 - ABG Interpretation ABG results: PT/INR, D-dimer PT 11.1 Seconds (9.4-12.1) 12/02/16 10:28 - Impressions Impressions Chest/Abdomen X-ray 12/04/16 12:03 IMPRESSION: Low lung volumes and bibasilar atelectasis. Redemonstration of focally dilated small bowel loop in the right abdomen and scattered small bowel air-fluid levels. Contrast from prior small bowel follow-through has progressed into the colon. Findings are compatible with ongoing partial small bowel obstruction. D/ / 12/04/2016 12:58:31 Nunu Peck MD / frank Interpreting Provider: Nunu Peck MD Consult Discharge Plan - Plan [facility]errals: [facility] [Primary Care Provider] -
[2016-12-05] MEDS: *HR* OxyCODONE/APAP 5/325 TABLET PO PRN ×2 (13:58→18:01)
[2016-12-06] MEDS: *HR* OxyCODONE/APAP 5/325 TABLET PO PRN (02:48)
[2016-12-06] MEDS: *HR* HYDROmorphone 2 MG/ML SYRINGE IVP PRN (05:53)
[2016-12-06] MEDS: *HR* Heparin 5,000 UNIT/ML VIAL SQ SCH ×2 (05:55→17:46)
[2016-12-06] MEDS: Pantoprazole 40 MG VIAL IVP SCH (09:50)
--- NOTE | 2016-12-06 10:44 | General Surgery Progress Note ---
<Alayna Jaquez - Last Filed: 12/06/16 11:00> Date of Encounter: 12/06/16 Time of Encounter: 10:30 - Assessment and Plan (1) Small bowel obstruction, partial Current Visit: No Status: Acute Back diet down to clear liquids NPO after midnight Add IV fluids at 75ml/hour Patient may require surgical intervention due to unresolved PSBO symptoms Dr. Calncy will discuss with Dr. Mart Transfer patient to surgical service Supportive care/pain control IS every 1 hour while awake PPI therapy daily (2) Abdominal pain Current Visit: Yes Status: Acute Supportive care and pain control Decrease diet to clear liquid diet Serial abdominal exams Patient may require surgical intervention for PSBO and unresolved symptoms Qualifiers: Abdominal location: unspecified location Qualified Code(s): R10.9 - Unspecified abdominal pain (3) DVT prophylaxis Current Visit: No Status: Acute Ambulate hallways TID Heparin 5,000 units SQ twice daily for DVT prophylaxis Subjective Patient reports: no new complaints, still having pain (increased after eating), tolerating liquids well (full liquids but experiencing bloating), voiding w/o difficulty, flatus, bowel movement (12/05/16), afebrile Objective Vital Signs - Last 8 Hours Temp Pulse Resp BP Pulse Ox 12/06/16 10:35 97.8 F 85 16 141/90 98 12/06/16 07:12 97.7 F 61 18 137/76 98 12/06/16 03:35 97.4 F L 62 15 125/69 96 Intake and Output 12/05/16 12/06/16 12/06/16 23:59 07:59 15:59 Intake Total 0 / 0 0 / 0 180 / 180 Output Total 0 / 0 0 / 0 Balance 0 / 0 0 / 0 180 / 180 Intake: Oral 0 / 0 0 / 0 180 / 180 Output: Urine 0 / 0 0 / 0 Other: Meal Dinner Breakfast Percent of Meal Consumed 5% 100% Stool Size Moderate Stool Consistency soft # Voids 1 # Bowel Movements 1 - General physical appearance well developed, well nourished, no distress - Eyes normal ocular movement - ENT normal mucosa, atraumatic, normocephalic - Neck Neck exam: trachea midline - Respiratory normal respiratory effort, clear to auscultation - Cardiovascular Cardiovascular exam: Present: RRR - Abdomen Abdomen: Present: bowel sounds present, soft, distended (mildly), tender ( generalized) - Neurologic CN 2-12 grossly intact - Musculoskeletal normal gait, normal posture - Psychiatric oriented to time, oriented to person, oriented to place, speech is normal, memory intact - Labs 12/03/16 05:30 12/05/16 05:07 - Imaging Additional Studies: Abdomen/Pelvis CT 12/02/16 09:45 IMPRESSION: 1. Multiple dilated loops of small bowel, likely representing either a partial small bowel obstruction or early complete obstruction. Transition point is present in the right lower quadrant. D/ / Tk Mix MD / Tk Mix MD Interpreting Provider: Tk Mix MD Small Bowel X-Ray 12/03/16 10:34 IMPRESSION: Focally dilated small bowel loops in the mid abdomen measuring upwards of 5.5 cm maximally in diameter. Partial obstruction with mild delay in small bowel transit time at 4 hours . D/ / Huy Bai MD / Huy Bai MD Interpreting Provider: Huy Bai MD Chest/Abdomen X-ray 12/06/16 06:56 IMPRESSION: 1. No free air. 2. Right basilar atelectasis. 3. Single dilated loops of small bowel in the right lower quadrant which is nonspecific. Gas and enteric contrast is noted within the colon. D/ / 12/06/2016 07:57:07 Rosette Peck MD / jer Interpreting Provider: Rosette Peck MD Consult Discharge Plan - Plan [facility]errals: [facility] [Primary Care Provider] - - Attending Attestation For this encounter, I have reviewed the RADIOLOGICAL ENGINEER or PA documentation, treatment plan, and medical decision making; and I have had face to face time with this patient. <Duog Clancy - Last Filed: 12/09/16 12:14> Date of Encounter: 12/06/16 - Assessment and Plan (1) Small bowel obstruction, partial Current Visit: No Status: Acute Objective Vital Signs - Last Hours Temp Pulse Resp BP Pulse Ox 12/09/16 10:51 98.1 F 112 16 144/91 94 12/09/16 10:38 94 12/09/16 08:38 98.1 F 114 18 136/93 94 12/09/16 06:30 98.5 F 114 20 137/87 94 Intake and Output 12/08/16 12/09/16 12/09/16 23:59 07:59 15:59 Intake Total 1261 / 1261 872 / 872 299 / 299 Output Total 825 / 825 500 / 500 Balance 436 / 436 372 / 372 299 / 299 Intake: IV Fluids 1261 / 1261 872 / 872 299 / 299 0.9 % Sodium Chloride 1, 1261 / 1261 872 / 872 299 / 299 000 ML @ 75 mls/hr IVC . [id number] [facility] Rx#: [id number] Oral 0 / 0 0 / 0 0 / 0 Output: Urine 500 / 500 500 / 500 Emesis 50 / 50 Gastric Drainage 275 / 275 Other: Meal NPO NPO Percent of Meal Consumed 0% Weight 67.585 kg 78.9 kg Blood Glucose* 88 113 114 Patient Weight 12/09/16 23:59 Weight 78.9 kg - Labs 12/09/16 03:19 12/09/16 03:19 Diabetes panel 12/09/16 Range/Units 03:19 Sodium 136 (136-145) mEq/L Potassium 4.4 (3.5-4.5) mEq/L Chloride 102 (98-109) mEq/L Carbon Dioxide 26 (19-29) mEq/L BUN 12 (8-26) mg/dL Creatinine 0.81 (0.72-1.25) mg/dL Glucose 134 H (70-99) mg/dL Calcium 9.4 (8.6-10.8) mg/dL Calcium panel 12/09/16 Range/Units 03:19 Calcium 9.4 (8.6-10.8) mg/dL Pituitary panel 12/09/16 Range/Units 03:19 Sodium 136 (136-145) mEq/L Potassium 4.4 (3.5-4.5) mEq/L Chloride 102 (98-109) mEq/L Carbon Dioxide 26 (19-29) mEq/L BUN 12 (8-26) mg/dL Creatinine 0.81 (0.72-1.25) mg/dL Glucose 134 H (70-99) mg/dL Calcium 9.4 (8.6-10.8) mg/dL Adrenal panel 12/09/16 Range/Units 03:19 Sodium 136 (136-145) mEq/L Potassium 4.4 (3.5-4.5) mEq/L Chloride 102 (98-109) mEq/L Carbon Dioxide 26 (19-29) mEq/L BUN 12 (8-26) mg/dL Creatinine 0.81 (0.72-1.25) mg/dL Glucose 134 H (70-99) mg/dL Calcium 9.4 (8.6-10.8) mg/dL - Attending Attestation Reviewed the above assessment and evaluation and agree with the nurse practitioner. His symptoms continue with abdominal distention and intermittent abdominal pain. Positive flatus. Abdominal x-ray was performed which shows a distended loop of small bowel in the right lower quadrant although overall the dilation has decreased compared to his previous x-ray. Given these findings I think he will require surgical intervention due to his persistent symptoms of partial small bowel obstruction. I discussed this with my colleague Dr. Mart will likely perform intervention within the next 24 hours.
[2016-12-06] MEDS: *HR* HYDROmorphone 2 MG/ML SYRINGE IVP SCH ×3 (11:00→20:05)
[2016-12-06] MEDS: Ondansetron 4 MG/2 ML VIAL IVP PRN (12:30)
--- NOTE | 2016-12-06 12:32 | Event Note ---
Date of Encounter: 12/06/16 Time of Encounter: 12:29 Pt had a BM last night. However he still c/o abdominal pain. Surgery Dr. Clancy requested to trasnfer the pt's care to surgery service since he does not have any other medical problems an they are planning on doing surgery in AM. So will sign off on his care. Spoke to pt about this.
[2016-12-06] MEDS: *HR* Promethazine 25 MG/ML VIAL IVP PRN (20:10)
[2016-12-07] MEDS ORDERED: 0.9 % Sodium Chloride 1,000 ML IVC SCH ×3 (00:01→12:15)
[2016-12-07] MEDS: *HR* HYDROmorphone 2 MG/ML SYRINGE IVP SCH ×3 (00:06→07:45)
[2016-12-07] MEDS: *HR* Heparin 5,000 UNIT/ML VIAL SQ SCH ×2 (04:22→19:26)
[2016-12-07] MEDS: Pantoprazole 40 MG VIAL IVP SCH (07:45)
[2016-12-07] MEDS ORDERED: *HR* FentaNYL (PF) 100 MCG/2 ML VIAL ONE (08:09)
[2016-12-07] MEDS ORDERED: *HR* Midazolam HCl 2 MG/2 ML VIAL ONE (08:10)
[2016-12-07] MEDS ORDERED: *HR* Rocuronium Bromide 50 MG/5 ML VIAL ONE ×2 (08:11→11:26)
[2016-12-07] MEDS ORDERED: *HR* Succinylcholine 200 MG/10 ML VIAL IVP ONE (08:11)
[2016-12-07] MEDS ORDERED: Lidocaine -MPF 2% 2 ML VIAL ONE (08:11)
[2016-12-07] MEDS ORDERED: *HR* Propofol 200 MG/20 ML VIAL IVP ONE (08:13)
[2016-12-07] MEDS ORDERED: Lidocaine -MPF 4% 5 ML AMPUL ONE (08:15)
--- NOTE | 2016-12-07 08:54 | Anesthesia Evaluation PreOp ---
Date of Encounter: 12/07/16 Time of Encounter: 08:49 - Past History Cardiac History: HTN Pulmonary History: Smoker, Other (hx of spontaneous pneumothorax) POLICE DISPATCHER History: Denies Any Significant HX Other Medical History: Denies Any Significant HX Anesthesia History: No Prior Anesthetic Complications, Past Anesthesia ( appendectomy, cholecystectomy, herniorrhaphy, diaphragmatic hernia repair as ) Alcohol Use: occasionally Drug use: none Medications and Allergies Amitriptyline [Elavil] 50 mg PO HS 09/04/16 [History] Lisinopril [Zestril] 10 mg PO DAILY 09/04/16 [History] Pantoprazole Sodium [Protonix] 40 mg PO DAILY 12/02/16 [History] 3 Allergy/AdvReac Type Severity Reaction Status Date / Time Amoxicillin AdvReac Rash Verified 12/02/16 06:28 - Meds/Allergy Pre-op Review Medications Reviewed: Yes Allergies Reviewed: Yes Beta Blockers on Current Med List: No Anesthesia Results - Labs 12/03/16 05:30 12/05/16 05:07 Anesthesia Exam Vital Signs/O2 Sat, Most Current Temp Pulse Resp BP Pulse Ox 97.6 F 76 18 124/84 98 12/07/16 06:42 12/07/16 06:42 12/07/16 06:42 12/07/16 06:42 12/07/16 06:42 Height: 1.57m Weight: 68kg - HEENT Pupil (Motor): Pupils equal, EOMI Mallampati: II Teeth: Poor dentition Oral Opening: Greater than 3 - POLICE DISPATCHER LOC: Oriented POLICE DISPATCHER Motor: Normal RUE, Normal LUE, Normal RLE, Normal LLE, Normal Face POLICE DISPATCHER Sensory: Normal: RUE, LUE, RLE, LLE, Face - Cardiac Rhythm: Regular - Pulmonary Breath Sounds: bilateral Clear Respiratory Effort: Symmetrical Anesthesia Assess/Plan ASA Score: 2 Modified Nay Scale for Level of Consciousness: Cooperative, oriented, and tranquil Anesthetic Plan: General (r/b/a discussed, questions answered, consent obtained) Monitoring Plan: Standard Monitors Recovery Plan: PACU
[2016-12-07] MEDS: Ringers Solution, Lactated 1,000 ML IVC SCH ×2 (09:10→10:30)
[2016-12-07] MEDS ORDERED: CefOXitin 2,000 MG VIAL IVPB ONE (09:27)
[2016-12-07] MEDS ORDERED: cefOXitin 2,000 MG in D5% in Water (Mini-Bag+) 100 ML IVPB ONE (09:45)
[2016-12-07] MEDS ORDERED: *HR* Promethazine 25 MG/ML VIAL IVP PRN (10:06)
[2016-12-07] MEDS ORDERED: *HR* Meperidine 25 MG/ML SYRINGE IVP PRN (10:06)
[2016-12-07] MEDS ORDERED: Ondansetron 4 MG/2 ML VIAL IVP ONE (10:06)
[2016-12-07] MEDS ORDERED: Naloxone 0.4 MG/ML INJ IVP PRN ×2 (10:06→13:28)
[2016-12-07] MEDS ORDERED: Ringers Solution, Lactated 1,000 ML IVC SCH (10:15)
[2016-12-07] MEDS ORDERED: *HR* HYDROmorphone 2 MG/ML SYRINGE ONE (10:16)
[2016-12-07] MEDS ORDERED: Ondansetron 4 MG/2 ML VIAL ONE (11:12)
[2016-12-07] MEDS ORDERED: Neostigmine Methylsulfate 3 MG/3 ML SYRINGE ONE (11:12)
[2016-12-07] MEDS ORDERED: *HR* HYDROmorphone (PF) 1 MG/ML SYRINGE IVP PRN (12:09)
[2016-12-07] MEDS ORDERED: Ondansetron 4 MG/2 ML VIAL IVP PRN (12:09)
--- NOTE | 2016-12-07 12:20 | Operative Note ---
Date of procedure: 12/07/16 Pre-op diagnosis: Recurrent small bowel obstruction Post-op diagnosis: other (#1 recurrent small bowel obstruction #2 mesh erosion into small bowel) Procedure: #1 small bowel resection #2 lysis of adhesions times 2 hours Anesthesia: STEPHANIE Surgeon: David Mart Specimen: Small bowel with mesh erosion Condition: stable Disposition: PACU Procedure in Detail: After informed consent patient was taken to major operative suite supine position given adequate general anesthesia. The abdomen is prepped and draped in sterile fashion utilizing ChloraPrep standard draping techniques. Timeout was taken and the patient was identified. The patient has had a multiple entry midline wound as well as a transverse right mid abdomen and a transverse left upper abdomen incision I opened the midline wound and abdomen. The anterior abdominal wall was relatively free of adhesions. The bulk of adhesions were between loops of small bowel. There were dense adhesions in the right lower quadrant over 2 hour period of time I performed lysis of adhesions along the entire length of the small bowel. There were no enterotomies. The right lower quadrant had a piece of mesh attached just above the right inguinal area. The time of this mesh placement was unknown. This may have been migration of mesh from his pediatric diaphragmatic hernia repair. The mesh had directly eroded into a portion of the bowel and the bowel was turned into a tight series of turns. I decided to resect this segment of bowel. I debrided the small bowel off the mesh and portions the mesh had directly eroded into the small bowel there were still no enterotomies. I divided the small bowel proximal and distal to the area of obstruction with DIANNA. I performed a standard functional end-to-end anastomosis with DIANNA and closed the resulting enterotomy with TA instrument. I circumferentially reinforced the anastomosis with interrupted 3- 0 silk. I closed the mesenteric opening with interrupted silk. The abdomen was irrigated with copious amounts of antibiotic containing solution. He tolerated the procedure well. The midline was closed with looped 0 PDS and the skin was reapproximated with interrupted 2-0 Vicryl and skin clips transferred to recovery in stable condition
[2016-12-07] MEDS: *HR* HYDROmorphone (PF) 1 MG/ML SYRINGE IVP PRN ×7 (12:23→16:24)
--- NOTE | 2016-12-07 13:25 | Anesthesia Evaluation Post Op ---
Date of Encounter: 12/07/16 Time of Encounter: 13:24 - Vital Signs Vital Signs: Vital Signs/O2 Sat, Most Current Temp Pulse Resp BP Pulse Ox 99.6 F 105 14 153/101 96 12/07/16 12:57 12/07/16 12:57 12/07/16 12:57 12/07/16 12:57 12/07/16 12:57 - Lungs Lungs: Clear Ascult./Percussion - Airway Airway: Non-obstructed - Cardiovascular Regular Rate - Mental Status Mental Status: Alert & Oriented, Answers Appropriately - Nausea Vomiting Nausea Vomiting: Not Present - Hydration Hydration: NPO Notes: 12/07/16 13:25 I have assessed this patient and find they meet discharge criteria. - Discharge PostOp Status: Transfer Patient to floor
[2016-12-07] MEDS: 0.9 % Sodium Chloride 1,000 ML IVC SCH (15:07)
[2016-12-07] MEDS ORDERED: ceFAZolin 2,000 MG in D5% in Water 100 ML IVPB SCH (16:00)
[2016-12-07] MEDS ORDERED: *HR* HYDROmorphone 2 MG/ML SYRINGE IVP ONE (16:40)
[2016-12-07] MEDS: *HR* HYDROmorphone 20 MG/20 ML PCA IVC PRN (17:38)
[2016-12-07] MEDS: ceFAZolin 2,000 MG in D5% in Water 100 ML IVPB SCH ×2 (17:57→23:35)
[2016-12-07] MEDS: Ondansetron 4 MG/2 ML VIAL IVP PRN (18:53)
[2016-12-08] MEDS: 0.9 % Sodium Chloride 1,000 ML IVC SCH ×2 (04:13→17:18)
[2016-12-08] MEDS: *HR* Heparin 5,000 UNIT/ML VIAL SQ SCH ×2 (05:13→18:27)
[2016-12-08 06:32] LABS: BUN/Creatinine Ratio 12 (6-26); Blood Urea Nitrogen 10 mg/dL (8-26); Calcium 9.4 mg/dL (8.6-10.8); Carbon Dioxide 18 mEq/L (19-29); Chloride 105 mEq/L (98-109); Glucose 117 mg/dL (70-99); Osmolality,Calculated 278 (280-300); Potassium 4.9 mEq/L (3.5-4.5); Sodium 134 mEq/L (136-145); eGFR For African Americans > 60 (> 60); eGFR For Non-African Americans > 60 (> 60)
[2016-12-08 07:36] LABS: Basophils % 0.1 %; Hematocrit 44.5 % (37.5-50.1); Hemoglobin 15.6 g/dL (12.9-16.9); Immature Granulocytes % 0.4 % (0-4); Immature Platelets 1.9 % (1.1-6.1); Lymphocytes # 1.2 K/mcL (0.6-4.6); Lymphocytes % 6.8 %; Mean Corpuscular HGB Conc 35.1 g/dL (31.6-35.5); Mean Corpuscular Hemoglobin 29.9 pg (28.0-33.3); Mean Corpuscular Volume 85.2 fL (83.0-100.0); Monocytes # 1.5 K/mcL (0.0-1.3); Monocytes % 8.7 %; Platelet Count 497 K/mcL (140-400); Red Blood Count 5.22 M/mcL (4.19-5.50); Red Cell Distribution Width 12.8 % (11.5-14.5)
[2016-12-08 07:45] LABS: Neutrophils # 14.9 K/mcL (1.6-8.9)
[2016-12-08] MEDS: Ondansetron 4 MG/2 ML VIAL IVP PRN ×2 (07:58→14:46)
[2016-12-08] MEDS ORDERED: Pantoprazole 40 MG VIAL IVP SCH (09:00)
[2016-12-08] MEDS: Pantoprazole 40 MG VIAL IVP SCH (09:27)
[2016-12-08] MEDS ORDERED: Chloraseptic Spray 177 ML BOTTLE MM PRN (09:54)
--- NOTE | 2016-12-08 11:39 | General Surgery Progress Note ---
<Lamont Tinoco - Last Filed: 12/08/16 14:42> Date of Encounter: 12/08/16 Time of Encounter: 09:10 - Assessment and Plan (1) Small bowel obstruction, partial Current Visit: No Status: Acute POD #1 Small bowel resection by Dr. Mart on 12/07/16 Hernia mesh eroded into small bowel Patient recovering well Still has significant pain Denies N/V, No flatus or BMs Continue NGT, IVF Pain management and supportive care Encouraged OOB and IS (2) Abdominal pain Current Visit: Yes Status: Acute See plan of care above Qualifiers: Abdominal location: unspecified location Qualified Code(s): R10.9 - Unspecified abdominal pain (3) Leukocytosis Current Visit: Yes Status: Acute Likely postoperative Will monitor with morning labs (4) DVT prophylaxis Current Visit: No Status: Acute Heparin subq Subjective Patient reports: no new complaints, still having pain, voiding w/o difficulty, no flatus, no bowel movement, afebrile Objective Vital Signs - Last 8 Hours Temp Pulse Resp BP Pulse Ox 12/08/16 06:44 98.7 F 122 20 148/95 95 12/08/16 04:44 98.2 F 131 13 149/92 90 Intake and Output 12/07/16 12/08/16 12/08/16 23:59 07:59 15:59 Intake Total 100 / 100 1100 / 1100 0 / 0 Output Total 10 / 10 500 / 500 Balance 90 / 90 600 / 600 0 / 0 Intake: IV Fluids 100 / 100 1100 / 1100 0.9 % Sodium Chloride 1, 1000 / 1000 000 ML @ 75 mls/hr IVC . [id number] [facility] Rx#: [id number] Ancef 2,000 MG In 100 / 100 100 / 100 Dextrose 5% 100 ML @ 200 mls/hr IVPB Q8HR [facility] Rx#: [id number] Oral 0 / 0 0 / 0 0 / 0 Output: Urine 0 / 0 500 / 500 Gastric Tube Lavage 10 / 10 Amount Right Nare 10 / 10 Other: Meal NPO NPO Percent of Meal Consumed 0% Weight 67.5 kg Blood Glucose* 123 113 Patient Weight 12/08/16 23:59 Weight 67.5 kg - General physical appearance well developed, well nourished, moderate pain - Eyes normal ocular movement - ENT atraumatic, normocephalic - Neck Neck exam: trachea midline - Respiratory normal expansion, normal respiratory effort, clear to auscultation - Cardiovascular Cardiovascular exam: Present: tachycardia, regular rhythm, no murmurs/rubs/ gallops - Abdomen Abdomen: Present: tender (expected postoperative tenderness), wound (midline abdominal incision). Absent: bowel sounds present - Incision Incision: Present: clean and dry, intact - Musculoskeletal normal posture - Psychiatric speech is normal - Labs 12/08/16 07:08 12/08/16 06:13 Diabetes panel 12/08/16 Range/Units 06:13 Sodium 134 L (136-145) mEq/L Potassium 4.9 H (3.5-4.5) mEq/L Chloride 105 (98-109) mEq/L Carbon Dioxide 18 L (19-29) mEq/L BUN 10 (8-26) mg/dL Creatinine 0.83 (0.72-1.25) mg/dL Glucose 117 H (70-99) mg/dL Calcium 9.4 (8.6-10.8) mg/dL Calcium panel 12/08/16 Range/Units 06:13 Calcium 9.4 (8.6-10.8) mg/dL Pituitary panel 12/08/16 Range/Units 06:13 Sodium 134 L (136-145) mEq/L Potassium 4.9 H (3.5-4.5) mEq/L Chloride 105 (98-109) mEq/L Carbon Dioxide 18 L (19-29) mEq/L BUN 10 (8-26) mg/dL Creatinine 0.83 (0.72-1.25) mg/dL Glucose 117 H (70-99) mg/dL Calcium 9.4 (8.6-10.8) mg/dL Adrenal panel 12/08/16 Range/Units 06:13 Sodium 134 L (136-145) mEq/L Potassium 4.9 H (3.5-4.5) mEq/L Chloride 105 (98-109) mEq/L Carbon Dioxide 18 L (19-29) mEq/L BUN 10 (8-26) mg/dL Creatinine 0.83 (0.72-1.25) mg/dL Glucose 117 H (70-99) mg/dL Calcium 9.4 (8.6-10.8) mg/dL - VTE Documentation of Mechanical Device: Intermittent pneumatic compression device Consult Discharge Plan - Plan Referrals: [facility] [Primary Care Provider] - <David Mart - Last Filed: 12/09/16 09:22> Date of Encounter: 12/08/16 Objective Vital Signs - Last 8 Hours Temp Pulse Resp BP Pulse Ox 12/09/16 08:38 98.1 F 114 18 136/93 94 12/09/16 06:30 98.5 F 114 20 137/87 94 12/09/16 04:01 98.2 F 135 14 138/92 91 Intake and Output 12/08/16 12/09/16 12/09/16 23:59 07:59 15:59 Intake Total 1261 / 1261 872 / 872 Output Total 825 / 825 500 / 500 Balance 436 / 436 372 / 372 Intake: IV Fluids 1261 / 1261 872 / 872 0.9 % Sodium Chloride 1, 1261 / 1261 872 / 872 000 ML @ 75 mls/hr IVC . [id number] [facility] Rx#: [id number] Oral 0 / 0 0 / 0 Output: Urine 500 / 500 500 / 500 Emesis 50 / 50 Gastric Drainage 275 / 275 Other: Meal NPO Weight 67.585 kg Blood Glucose* 88 113 Patient Weight 12/09/16 23:59 Weight 67.585 kg - Labs 12/09/16 03:19 12/09/16 03:19 Diabetes panel 12/09/16 Range/Units 03:19 Sodium 136 (136-145) mEq/L Potassium 4.4 (3.5-4.5) mEq/L Chloride 102 (98-109) mEq/L Carbon Dioxide 26 (19-29) mEq/L BUN 12 (8-26) mg/dL Creatinine 0.81 (0.72-1.25) mg/dL Glucose 134 H (70-99) mg/dL Calcium 9.4 (8.6-10.8) mg/dL Calcium panel 12/09/16 Range/Units 03:19 Calcium 9.4 (8.6-10.8) mg/dL Pituitary panel 12/09/16 Range/Units 03:19 Sodium 136 (136-145) mEq/L Potassium 4.4 (3.5-4.5) mEq/L Chloride 102 (98-109) mEq/L Carbon Dioxide 26 (19-29) mEq/L BUN 12 (8-26) mg/dL Creatinine 0.81 (0.72-1.25) mg/dL Glucose 134 H (70-99) mg/dL Calcium 9.4 (8.6-10.8) mg/dL Adrenal panel 12/09/16 Range/Units 03:19 Sodium 136 (136-145) mEq/L Potassium 4.4 (3.5-4.5) mEq/L Chloride 102 (98-109) mEq/L Carbon Dioxide 26 (19-29) mEq/L BUN 12 (8-26) mg/dL Creatinine 0.81 (0.72-1.25) mg/dL Glucose 134 H (70-99) mg/dL Calcium 9.4 (8.6-10.8) mg/dL - Attending Attestation I examined this patient and my medical decision-making was reviewed with the Resident Physician. I agree with the documented findings, disposition and treatment plan as described except to the extent set forth below. The patient was seen and evaluated on morning rounds the resident. The patient had significant postoperative pain. He has a leukocytosis response to surgery. His electrolytes are normal. We will continue supportive care. David Mart MD FACS
[2016-12-08] MEDS: *HR* HYDROmorphone 20 MG/20 ML PCA IVC PRN (14:38)
[2016-12-09 03:45] LABS: Hematocrit 41.8 % (37.5-50.1); Hemoglobin 14.6 g/dL (12.9-16.9); Mean Corpuscular HGB Conc 34.9 g/dL (31.6-35.5); Mean Corpuscular Hemoglobin 29.9 pg (28.0-33.3); Mean Corpuscular Volume 85.7 fL (83.0-100.0); Mean Platelet Volume 9.1 fL (9.4-12.4); Platelet Count 411 K/mcL (140-400); Red Blood Count 4.88 M/mcL (4.19-5.50); Red Cell Distribution Width 12.8 % (11.5-14.5)
[2016-12-09 03:58] LABS: BUN/Creatinine Ratio 15 (6-26); Blood Urea Nitrogen 12 mg/dL (8-26); Calcium 9.4 mg/dL (8.6-10.8); Carbon Dioxide 26 mEq/L (19-29); Chloride 102 mEq/L (98-109); Glucose 134 mg/dL (70-99); Osmolality,Calculated 284 (280-300); Potassium 4.4 mEq/L (3.5-4.5); Sodium 136 mEq/L (136-145); eGFR For African Americans > 60 (> 60); eGFR For Non-African Americans > 60 (> 60)
[2016-12-09] MEDS: *HR* Heparin 5,000 UNIT/ML VIAL SQ SCH ×2 (05:23→17:50)
[2016-12-09] MEDS: 0.9 % Sodium Chloride 1,000 ML IVC SCH ×2 (05:53→17:33)
[2016-12-09] MEDS: Pantoprazole 40 MG VIAL IVP SCH (07:40)
--- NOTE | 2016-12-09 10:19 | General Surgery Progress Note ---
Date of Encounter: 12/09/16 Time of Encounter: 07:35 - Assessment and Plan (1) SBO (small bowel obstruction) Current Visit: No Status: Acute The patient is postoperative day #2 from small bowel resection. He had an area of direct mesh ingrowth into the distal ileum. This was resected with primary repair. He also had extensive lysis of adhesions. There were no enterotomies. His white blood cell count is going up and I think it is reasonable to restart his antibiotic. He is to ambulate today. We will repeat a CBC tomorrow. Subjective Narrative: The patient had a good deal of difficulty with pain control yesterday. 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 He is doing better with pain management. He has bowel sounds. He says that his preoperative pain syndrome is much better but his incisional pain is severe. His white blood cell count went up today to 23,000 and this is of great concern. I am going to restart his antibiotics out of an abundance of caution. There was no spillage during his procedure however he had an extensive lysis of adhesions. There were no enterotomies during his 2 hour lysis of adhesions. He is to use his incentive spirometer and ambulate today. I will restart his Mefoxin. Objective Vital Signs - Last 8 Hours Temp Pulse Resp BP Pulse Ox 12/09/16 08:38 98.1 F 114 18 136/93 94 12/09/16 06:30 98.5 F 114 20 137/87 94 12/09/16 04:01 98.2 F 135 14 138/92 91 Intake and Output 12/08/16 12/09/16 12/09/16 23:59 07:59 15:59 Intake Total 1261 / 1261 872 / 872 0 / 0 Output Total 825 / 825 500 / 500 Balance 436 / 436 372 / 372 0 / 0 Intake: IV Fluids 1261 / 1261 872 / 872 0.9 % Sodium Chloride 1, 1261 / 1261 872 / 872 000 ML @ 75 mls/hr IVC . [id number] [facility], [facility] Rx#: [id number] Oral 0 / 0 0 / 0 0 / 0 Output: Urine 500 / 500 500 / 500 Emesis 50 / 50 Gastric Drainage 275 / 275 Other: Meal NPO NPO Percent of Meal Consumed 0% Weight 67.585 kg Blood Glucose* 88 113 Patient Weight 12/09/16 23:59 Weight 67.585 kg - General physical appearance well developed, well nourished, moderate pain - Respiratory normal expansion, normal respiratory effort, clear to percussion, clear to auscultation - Cardiovascular Cardiovascular exam: Present: RRR, tachycardia - Abdomen Abdomen: Present: bowel sounds present, tender - Incision Incision: Present: clean and dry - Neurologic normal coordination, normal sensation - Psychiatric oriented to time, oriented to person, oriented to place, speech is normal, memory intact - Labs 12/09/16 03:19 12/09/16 03:19 Diabetes panel 12/09/16 Range/Units 03:19 Sodium 136 (136-145) mEq/L Potassium 4.4 (3.5-4.5) mEq/L Chloride 102 (98-109) mEq/L Carbon Dioxide 26 (19-29) mEq/L BUN 12 (8-26) mg/dL Creatinine 0.81 (0.72-1.25) mg/dL Glucose 134 H (70-99) mg/dL Calcium 9.4 (8.6-10.8) mg/dL Calcium panel 12/09/16 Range/Units 03:19 Calcium 9.4 (8.6-10.8) mg/dL Pituitary panel 12/09/16 Range/Units 03:19 Sodium 136 (136-145) mEq/L Potassium 4.4 (3.5-4.5) mEq/L Chloride 102 (98-109) mEq/L Carbon Dioxide 26 (19-29) mEq/L BUN 12 (8-26) mg/dL Creatinine 0.81 (0.72-1.25) mg/dL Glucose 134 H (70-99) mg/dL Calcium 9.4 (8.6-10.8) mg/dL Adrenal panel 12/09/16 Range/Units 03:19 Sodium 136 (136-145) mEq/L Potassium 4.4 (3.5-4.5) mEq/L Chloride 102 (98-109) mEq/L Carbon Dioxide 26 (19-29) mEq/L BUN 12 (8-26) mg/dL Creatinine 0.81 (0.72-1.25) mg/dL Glucose 134 H (70-99) mg/dL Calcium 9.4 (8.6-10.8) mg/dL - VTE Documentation of Mechanical Device: Intermittent pneumatic compression device Consult Discharge Plan - Plan [facility]errals: [facility] Care Provider[facility] -
[2016-12-09] MEDS ORDERED: Acetaminophen IV 500 MG/50 ML INFUS..BTL IVPB SCH (15:00)
[2016-12-09] MEDS ORDERED: Acetaminophen IV 1,000 MG/100 ML INFUS..BTL IVPB SCH (16:00)
[2016-12-09] MEDS: cefOXitin 2,000 MG in D5% in Water (Mini-Bag+) 100 ML IVPB SCH ×2 (16:02→23:57)
[2016-12-09] MEDS: Ketorolac 30 MG/ML VIAL IVP SCH ×2 (17:31→23:59)
[2016-12-09] MEDS: *HR* HYDROmorphone 20 MG/20 ML PCA IVC PRN (21:04)
[2016-12-09] MEDS: Acetaminophen IV 1,000 MG/100 ML INFUS..BTL IVPB SCH (22:03)
[2016-12-10] MEDS: Acetaminophen IV 1,000 MG/100 ML INFUS..BTL IVPB SCH ×4 (03:31→22:07)
[2016-12-10] MEDS: Ketorolac 30 MG/ML VIAL IVP SCH ×4 (05:03→23:29)
[2016-12-10 05:15] LABS: Basophils # 0.1 K/mcL (0.0-0.2); Basophils % 0.3 %; Eosinophils # 0.7 K/mcL (0.0-0.6); Eosinophils % 3.8 %; Hematocrit 41.4 % (37.5-50.1); Hemoglobin 13.8 g/dL (12.9-16.9); Immature Granulocytes % 0.5 % (0-4); Lymphocytes # 1.6 K/mcL (0.6-4.6); Lymphocytes % 9.3 %; Mean Corpuscular HGB Conc 33.3 g/dL (31.6-35.5); Mean Corpuscular Hemoglobin 28.9 pg (28.0-33.3); Mean Corpuscular Volume 86.8 fL (83.0-100.0); Mean Platelet Volume 9.4 fL (9.4-12.4); Monocytes # 1.3 K/mcL (0.0-1.3); Monocytes % 7.5 %; Platelet Count 407 K/mcL (140-400); Red Blood Count 4.77 M/mcL (4.19-5.50); Red Cell Distribution Width 12.7 % (11.5-14.5); Segmented Neutrophils % 78.6 %
[2016-12-10 05:22] LABS: BUN/Creatinine Ratio 24 (6-26); Blood Urea Nitrogen 17 mg/dL (8-26); Calcium 9.1 mg/dL (8.6-10.8); Carbon Dioxide 22 mEq/L (19-29); Chloride 103 mEq/L (98-109); Glucose 98 mg/dL (70-99); Osmolality,Calculated 286 (280-300); Potassium 4.1 mEq/L (3.5-4.5); Sodium 137 mEq/L (136-145); eGFR For African Americans > 60 (> 60); eGFR For Non-African Americans > 60 (> 60)
[2016-12-10 05:35] LABS: Neutrophils # 13.8 K/mcL (1.6-8.9)
[2016-12-10] MEDS: *HR* Heparin 5,000 UNIT/ML VIAL SQ SCH ×2 (06:13→17:32)
[2016-12-10] MEDS: 0.9 % Sodium Chloride 1,000 ML IVC SCH ×3 (07:30→22:08)
[2016-12-10] MEDS: Pantoprazole 40 MG VIAL IVP SCH (07:34)
[2016-12-10] MEDS: cefOXitin 2,000 MG in D5% in Water (Mini-Bag+) 100 ML IVPB SCH ×3 (07:34→23:33)
--- NOTE | 2016-12-10 11:39 | General Surgery Progress Note ---
<Alayna Jaquez Krys - Last Filed: 12/10/16 11:35> Date of Encounter: 12/10/16 Time of Encounter: 11:00 - Assessment and Plan (1) Small bowel obstruction, partial Current Visit: No Status: Acute POD #3 small bowel resection and lysis of adhesions times [address] Brittny DEXTER while awaiting return of bowel function NG tube to gravity drain (landry bag) IV fluids- 75ml/hour IV antibiotics- Cefoxitin day #2 Supportive care/pain control- Improved with ofirmev and toradol, continue [employer] Ambulate hallways TID with assistance IS every 1 hour while awake PPI therapy daily (2) Abdominal pain Current Visit: Yes Status: Acute Supportive care and pain control- improved today with addition of ofirmev and toradol yesterday, continue [employer] Qualifiers: Abdominal location: unspecified location Qualified Code(s): R10.9 - Unspecified abdominal pain (3) Leukocytosis Current Visit: Yes Status: Acute Improved WBC 23.1>17.6 Continue cefoxitin day #2 Repeat am labs Qualifiers: Leukocytosis type: unspecified Qualified Code(s): D72.829 - Elevated white blood cell count, unspecified (4) DVT prophylaxis Current Visit: No Status: Acute Ambulate hallways TID Heparin 5,000 units SQ twice daily for DVT prophylaxis Subjective Patient reports: no new complaints, feels better, still having pain, pain is less, voiding w/o difficulty, flatus, no bowel movement, afebrile Objective Vital Signs - Last 8 Hours Temp Pulse Resp BP Pulse Ox 12/10/16 10:11 92 12/10/16 06:56 92 12/10/16 06:45 97.9 F 108 20 135/79 92 12/10/16 04:52 98.2 F 104 19 137/79 92 Intake and Output 12/09/16 12/10/16 12/10/16 23:59 07:59 15:59 Intake Total 868 / 868 1200 / 1200 200 / 200 Output Total 750 / 750 650 / 650 Balance 118 / 118 550 / 550 200 / 200 Intake: IV Fluids 868 / 868 1200 / 1200 200 / 200 0.9 % Sodium Chloride 1, 568 / 568 1000 / 1000 000 ML @ 75 mls/hr IVC . [id number] [facility] Rx#: [id number] Ofirmev 1,000 mg/100 ml 1 200 / 200 100 / 100 100 / 100 ,000 mg In 100 ml @ 400 mls/hr IVPB Q6H [facility] Rx#: [id number] Mefoxin 2,000 MG In 100 / 100 100 / 100 100 / 100 Dextrose 5% (Minibag+) 100 ML 100 ML @ 200 mls/ hr IVPB Q8HR [facility] Rx#: [id number] Oral 0 / 0 0 / 0 Output: Urine 300 / 300 350 / 350 Gastric Drainage 450 / 450 300 / 300 Other: Meal NPO for supper NPO Weight 78.3 kg Blood Glucose* 116 98 Patient Weight 12/10/16 23:59 Weight 78.3 kg - General physical appearance well developed, well nourished, no distress, moderate pain - Eyes normal ocular movement - ENT dry mucosa, atraumatic, normocephalic - Neck Neck exam: trachea midline - Respiratory normal respiratory effort, clear to auscultation, other (diminished bibasilar bases) - Cardiovascular Cardiovascular exam: Present: tachycardia - Abdomen Abdomen: Present: bowel sounds present, soft, tender (expected post-operative tenderness (improved)), wound (NG tube to LIWS (300ml noted since midnight)) - Incision Incision: Present: clean and dry, intact - Integumentary no rash, no growths, no abnormal pigmentation - Neurologic CN 2-12 grossly intact - Psychiatric oriented to time, oriented to person, oriented to place, speech is normal, memory intact - Labs 12/10/16 04:42 12/10/16 04:42 Diabetes panel 12/10/16 Range/Units 04:42 Sodium 137 (136-145) mEq/L Potassium 4.1 (3.5-4.5) mEq/L Chloride 103 (98-109) mEq/L Carbon Dioxide 22 (19-29) mEq/L BUN 17 (8-26) mg/dL Creatinine 0.72 (0.72-1.25) mg/dL Glucose 98 (70-99) mg/dL Calcium 9.1 (8.6-10.8) mg/dL Calcium panel 12/10/16 Range/Units 04:42 Calcium 9.1 (8.6-10.8) mg/dL Pituitary panel 12/10/16 Range/Units 04:42 Sodium 137 (136-145) mEq/L Potassium 4.1 (3.5-4.5) mEq/L Chloride 103 (98-109) mEq/L Carbon Dioxide 22 (19-29) mEq/L BUN 17 (8-26) mg/dL Creatinine 0.72 (0.72-1.25) mg/dL Glucose 98 (70-99) mg/dL Calcium 9.1 (8.6-10.8) mg/dL Adrenal panel 12/10/16 Range/Units 04:42 Sodium 137 (136-145) mEq/L Potassium 4.1 (3.5-4.5) mEq/L Chloride 103 (98-109) mEq/L Carbon Dioxide 22 (19-29) mEq/L BUN 17 (8-26) mg/dL Creatinine 0.72 (0.72-1.25) mg/dL Glucose 98 (70-99) mg/dL Calcium 9.1 (8.6-10.8) mg/dL - VTE Documentation of Mechanical Device: Intermittent pneumatic compression device Consult Discharge Plan - Plan [facility]errals: [facility] [Primary Care Provider[facility] - - Attending Attestation For this encounter, I have reviewed the COLLAR TURNER or PA documentation, treatment plan, and medical decision making; and I have had face to face time with this patient. <David Mart - Last Filed: 12/11/16 08:07> Date of Encounter: 12/10/16 - Assessment and Plan (1) SBO (small bowel obstruction) Current Visit: No Status: Acute Objective Vital Signs - Last 8 Hours Temp Pulse Resp BP Pulse Ox 12/11/16 06:44 97.9 F 92 18 134/82 93 12/11/16 04:24 98.0 F 100 16 152/84 93 12/11/16 04:18 97.6 F 72 16 113/62 97 12/11/16 00:30 97.7 F 103 16 132/85 93 Intake and Output 12/10/16 12/11/16 12/11/16 23:59 07:59 15:59 Intake Total 1200 / 1200 200 / 200 Output Total 800 / 800 Balance 1200 / 1200 -600 / -600 Intake: IV Fluids 1200 / 1200 200 / 200 0.9 % Sodium Chloride 1, 1000 / 1000 000 ML @ 75 mls/hr IVC . [id number] [facility] Rx#: [id number] Ofirmev 1,000 mg/100 ml 1 100 / 100 100 / 100 ,000 mg In 100 ml @ 400 mls/hr IVPB Q6H [facility] Rx#: [id number] Mefoxin 2,000 MG In 100 / 100 100 / 100 Dextrose 5% (Minibag+) 100 ML 100 ML @ 200 mls/ hr IVPB Q8HR [facility] Rx#: [id number] Oral 0 / 0 0 / 0 Output: Urine 300 / 300 Catheter 250 / 250 Gastric Drainage 250 / 250 Other: Meal NPO Percent of Meal Consumed 0% Weight 78.3 kg Blood Glucose* 96 73 Patient Weight 12/11/16 23:59 Weight 78.3 kg - Labs 12/11/16 05:15 12/11/16 05:15 Diabetes panel 12/11/16 Range/Units 05:15 Sodium 141 (136-145) mEq/L Potassium 3.7 (3.5-4.5) mEq/L Chloride 108 (98-109) mEq/L Carbon Dioxide 25 (19-29) mEq/L BUN 21 (8-26) mg/dL Creatinine 0.71 L (0.72-1.25) mg/dL Glucose 83 (70-99) mg/dL Calcium 8.7 (8.6-10.8) mg/dL AST 16 (5-34) Units/L ALT 35 (0-55) Units/L Alkaline Phosphatase 59 (38-126) Units/L Albumin 2.5 L (3.5-5.0) g/dL Calcium panel 12/11/16 Range/Units 05:15 Calcium 8.7 (8.6-10.8) mg/dL Albumin 2.5 L (3.5-5.0) g/dL Pituitary panel 12/11/16 Range/Units 05:15 Sodium 141 (136-145) mEq/L Potassium 3.7 (3.5-4.5) mEq/L Chloride 108 (98-109) mEq/L Carbon Dioxide 25 (19-29) mEq/L BUN 21 (8-26) mg/dL Creatinine 0.71 L (0.72-1.25) mg/dL Glucose 83 (70-99) mg/dL Calcium 8.7 (8.6-10.8) mg/dL Adrenal panel 12/11/16 Range/Units 05:15 Sodium 141 (136-145) mEq/L Potassium 3.7 (3.5-4.5) mEq/L Chloride 108 (98-109) mEq/L Carbon Dioxide 25 (19-29) mEq/L BUN 21 (8-26) mg/dL Creatinine 0.71 L (0.72-1.25) mg/dL Glucose 83 (70-99) mg/dL Calcium 8.7 (8.6-10.8) mg/dL Total Bilirubin 0.6 (0.2-1.2) mg/dL AST 16 (5-34) Units/L ALT 35 (0-55) Units/L Alkaline Phosphatase 59 (38-126) Units/L Albumin 2.5 L (3.5-5.0) g/dL - Attending Attestation The patient is seen and evaluated on morning rounds. The clinical plan is discussed with the clinical nurse practitioner. His nasogastric tube drainage has fallen off and we should be able to remove the nasogastric tube soon. His white blood cell count is coming down and his pain control is much better. David Mart MD FACS
[2016-12-11] MEDS: Acetaminophen IV 1,000 MG/100 ML INFUS..BTL IVPB SCH ×2 (05:20→10:45)
[2016-12-11] MEDS: Ketorolac 30 MG/ML VIAL IVP SCH ×4 (05:22→23:21)
[2016-12-11] MEDS: *HR* Heparin 5,000 UNIT/ML VIAL SQ SCH ×2 (05:30→18:50)
[2016-12-11 05:58] LABS: Basophils % 0.3 %; Eosinophils # 0.7 K/mcL (0.0-0.6); Eosinophils % 5.7 %; Hematocrit 38.5 % (37.5-50.1); Hemoglobin 12.8 g/dL (12.9-16.9); Immature Granulocytes % 0.5 % (0-4); Lymphocytes # 1.2 K/mcL (0.6-4.6); Mean Corpuscular HGB Conc 33.2 g/dL (31.6-35.5); Mean Corpuscular Hemoglobin 29.2 pg (28.0-33.3); Mean Corpuscular Volume 87.9 fL (83.0-100.0); Mean Platelet Volume 9.4 fL (9.4-12.4); Monocytes # 0.9 K/mcL (0.0-1.3); Monocytes % 7.4 %; Neutrophils # 8.8 K/mcL (1.6-8.9); Platelet Count 453 K/mcL (140-400); Red Blood Count 4.38 M/mcL (4.19-5.50); Red Cell Distribution Width 12.7 % (11.5-14.5); Segmented Neutrophils % 76.1 %
[2016-12-11 06:08] LABS: Alanine Aminotransferase 35 Units/L (0-55); Albumin 2.5 g/dL (3.5-5.0); Albumin/Globulin Ratio 0.8 (1.1-2.2); Alkaline Phosphatase 59 Units/L (38-126); Aspartate Amino Transferase 16 Units/L (5-34); BUN/Creatinine Ratio 30 (6-26); Bilirubin,Total 0.6 mg/dL (0.2-1.2); Blood Urea Nitrogen 21 mg/dL (8-26); Calcium 8.7 mg/dL (8.6-10.8); Carbon Dioxide 25 mEq/L (19-29); Chloride 108 mEq/L (98-109); Glucose 83 mg/dL (70-99); Osmolality,Calculated 294 (280-300); Potassium 3.7 mEq/L (3.5-4.5); Sodium 141 mEq/L (136-145); Total Protein 5.5 g/dL (6.0-8.3); eGFR For African Americans > 60 (> 60); eGFR For Non-African Americans > 60 (> 60)
[2016-12-11] MEDS: Pantoprazole 40 MG VIAL IVP SCH (08:40)
[2016-12-11] MEDS: cefOXitin 2,000 MG in D5% in Water (Mini-Bag+) 100 ML IVPB SCH ×3 (08:40→23:20)
[2016-12-11] MEDS: 0.9 % Sodium Chloride 1,000 ML IVC SCH ×2 (08:41→23:18)
[2016-12-11] MEDS: *HR* HYDROmorphone 20 MG/20 ML PCA IVC PRN (12:04)
[2016-12-11] MEDS ORDERED: Ondansetron 4 MG/2 ML VIAL IVP PRN (12:53)
--- NOTE | 2016-12-11 13:00 | General Surgery Progress Note ---
<Adina Lugo - Last Filed: 12/11/16 12:57> Date of Encounter: 12/11/16 Time of Encounter: 12:45 - Assessment and Plan (1) SBO (small bowel obstruction) Current Visit: No Status: Acute POD #4 small bowel resection and lysis of adhesions times [address] Mart -patient pulled NG tube out on 12/10/2016, okay to leave out at this time -continue supportive care and discomfort management. Will decrease IV Toradol to 15 mg every 6 hours, continue Ofirmev, and PRN IV pain medications -okay to "clear liquid diet, will add dietary supplement of Ensure clear TID with trees -IV antibiotics- Cefoxitin day #3 -Ambulate hallways TID with assistance -okay to shower IS every 1 hour while awake PPI therapy daily No need to repeat AM labs at this time. will continue to monitor (2) Abdominal pain Current Visit: Yes Status: Acute See plan above Qualifiers: Abdominal location: unspecified location Qualified Code(s): R10.9 - Unspecified abdominal pain (3) DVT prophylaxis Current Visit: Yes Status: Acute Continue ambulation at least 3 times daily continue heparin 5000 units subQ twice daily Subjective Patient reports: no new complaints, feels better, still having pain, pain is less, voiding w/o difficulty, flatus, no bowel movement, afebrile Objective Vital Signs - Last 8 Hours Temp Pulse Resp BP Pulse Ox 12/11/16 10:50 97.9 F 96 18 139/84 95 12/11/16 06:44 97.9 F 92 18 134/82 93 Intake and Output 12/10/16 12/11/16 12/11/16 23:59 07:59 15:59 Intake Total 1200 / 1200 200 / 200 600 / 600 Output Total 800 / 800 200 / 200 Balance 1200 / 1200 -600 / -600 400 / 400 Intake: IV Fluids 1200 / 1200 200 / 200 600 / 600 0.9 % Sodium Chloride 1, 1000 / 1000 100 / 100 000 ML @ 75 mls/hr IVC . [id number] [facility] Rx#: [id number] Ofirmev 1,000 mg/100 ml 1 100 / 100 100 / 100 400 / 400 ,000 mg In 100 ml @ 400 mls/hr IVPB Q6H [facility] Rx#: [id number] Mefoxin 2,000 MG In 100 / 100 100 / 100 100 / 100 Dextrose 5% (Minibag+) 100 ML 100 ML @ 200 mls/ hr IVPB Q8HR [facility] Rx#: [id number] Oral 0 / 0 0 / 0 0 / 0 Output: Urine 300 / 300 200 / 200 Catheter 250 / 250 Gastric Drainage 250 / 250 Other: Meal NPO NPO Percent of Meal Consumed 0% Weight 78.3 kg Blood Glucose* 96 73 Patient Weight 12/11/16 23:59 Weight 78.3 kg - General physical appearance well nourished, no distress, moderate pain - Eyes normal ocular movement - ENT normal nares, normal mucosa, atraumatic, normocephalic - Neck Neck exam: no masses, trachea midline, no venous distension - Respiratory normal expansion, normal respiratory effort, clear to auscultation - Cardiovascular Cardiovascular exam: Present: RRR - Abdomen Abdomen: Present: bowel sounds present, soft, tender (Expected postoperative) Hernia: none - Incision Incision: Present: clean and dry, intact - Integumentary no rash - Neurologic normal coordination, normal sensation - Musculoskeletal normal posture - Psychiatric oriented to time, oriented to person, oriented to place, speech is normal, memory intact - Labs 12/11/16 05:15 12/11/16 05:15 Diabetes panel 12/11/16 Range/Units 05:15 Sodium 141 (136-145) mEq/L Potassium 3.7 (3.5-4.5) mEq/L Chloride 108 (98-109) mEq/L Carbon Dioxide 25 (19-29) mEq/L BUN 21 (8-26) mg/dL Creatinine 0.71 L (0.72-1.25) mg/dL Glucose 83 (70-99) mg/dL Calcium 8.7 (8.6-10.8) mg/dL AST 16 (5-34) Units/L ALT 35 (0-55) Units/L Alkaline Phosphatase 59 (38-126) Units/L Albumin 2.5 L (3.5-5.0) g/dL Calcium panel 12/11/16 Range/Units 05:15 Calcium 8.7 (8.6-10.8) mg/dL Albumin 2.5 L (3.5-5.0) g/dL Pituitary panel 12/11/16 Range/Units 05:15 Sodium 141 (136-145) mEq/L Potassium 3.7 (3.5-4.5) mEq/L Chloride 108 (98-109) mEq/L Carbon Dioxide 25 (19-29) mEq/L BUN 21 (8-26) mg/dL Creatinine 0.71 L (0.72-1.25) mg/dL Glucose 83 (70-99) mg/dL Calcium 8.7 (8.6-10.8) mg/dL Adrenal panel 12/11/16 Range/Units 05:15 Sodium 141 (136-145) mEq/L Potassium 3.7 (3.5-4.5) mEq/L Chloride 108 (98-109) mEq/L Carbon Dioxide 25 (19-29) mEq/L BUN 21 (8-26) mg/dL Creatinine 0.71 L (0.72-1.25) mg/dL Glucose 83 (70-99) mg/dL Calcium 8.7 (8.6-10.8) mg/dL Total Bilirubin 0.6 (0.2-1.2) mg/dL AST 16 (5-34) Units/L ALT 35 (0-55) Units/L Alkaline Phosphatase 59 (38-126) Units/L Albumin 2.5 L (3.5-5.0) g/dL - VTE Documentation of Mechanical Device: Intermittent pneumatic compression device Consult Discharge Plan - Plan [facility]errals: [facility] [Primary Care Provider] - <David Mart - Last Filed: 12/11/16 18:20> Date of Encounter: 12/11/16 - Assessment and Plan (1) SBO (small bowel obstruction) Current Visit: No Status: Acute Objective Vital Signs - Last 8 Hours Temp Pulse Resp BP Pulse Ox 12/11/16 14:46 98.6 F 105 16 127/81 93 12/11/16 10:50 97.9 F 96 18 139/84 95 Intake and Output 12/11/16 12/11/16 12/11/16 07:59 15:59 23:59 Intake Total 200 / 200 840 / 840 0 / 0 Output Total 800 / 800 300 / 300 Balance -600 / -600 540 / 540 0 / 0 Intake: IV Fluids 200 / 200 600 / 600 0.9 % Sodium Chloride 1, 100 / 100 000 ML @ 75 mls/hr IVC . [id number] [facility] Rx#: [id number] Ofirmev 1,000 mg/100 ml 1 100 / 100 400 / 400 ,000 mg In 100 ml @ 400 mls/hr IVPB Q6H [facility] Rx#: [id number] Mefoxin 2,000 MG In 100 / 100 100 / 100 Dextrose 5% (Minibag+) 100 ML 100 ML @ 200 mls/ hr IVPB Q8HR [facility] Rx#: [id number] Oral 0 / 0 240 / 240 0 / 0 Output: Urine 300 / 300 300 / 300 Catheter 250 / 250 Gastric Drainage 250 / 250 Other: Meal NPO Percent of Meal Consumed 0% 0% Weight 78.3 kg Blood Glucose* 73 Patient Weight 12/11/16 23:59 Weight 78.3 kg - Labs 12/11/16 05:15 12/11/16 05:15 Diabetes panel 12/11/16 Range/Units 05:15 Sodium 141 (136-145) mEq/L Potassium 3.7 (3.5-4.5) mEq/L Chloride 108 (98-109) mEq/L Carbon Dioxide 25 (19-29) mEq/L BUN 21 (8-26) mg/dL Creatinine 0.71 L (0.72-1.25) mg/dL Glucose 83 (70-99) mg/dL Calcium 8.7 (8.6-10.8) mg/dL AST 16 (5-34) Units/L ALT 35 (0-55) Units/L Alkaline Phosphatase 59 (38-126) Units/L Albumin 2.5 L (3.5-5.0) g/dL Calcium panel 12/11/16 Range/Units 05:15 Calcium 8.7 (8.6-10.8) mg/dL Albumin 2.5 L (3.5-5.0) g/dL Pituitary panel 12/11/16 Range/Units 05:15 Sodium 141 (136-145) mEq/L Potassium 3.7 (3.5-4.5) mEq/L Chloride 108 (98-109) mEq/L Carbon Dioxide 25 (19-29) mEq/L BUN 21 (8-26) mg/dL Creatinine 0.71 L (0.72-1.25) mg/dL Glucose 83 (70-99) mg/dL Calcium 8.7 (8.6-10.8) mg/dL Adrenal panel 12/11/16 Range/Units 05:15 Sodium 141 (136-145) mEq/L Potassium 3.7 (3.5-4.5) mEq/L Chloride 108 (98-109) mEq/L Carbon Dioxide 25 (19-29) mEq/L BUN 21 (8-26) mg/dL Creatinine 0.71 L (0.72-1.25) mg/dL Glucose 83 (70-99) mg/dL Calcium 8.7 (8.6-10.8) mg/dL Total Bilirubin 0.6 (0.2-1.2) mg/dL AST 16 (5-34) Units/L ALT 35 (0-55) Units/L Alkaline Phosphatase 59 (38-126) Units/L Albumin 2.5 L (3.5-5.0) g/dL - Attending Attestation I have personally performed a face to face evaluation on this patient. I have reviewed and agree with the care plan. History and Exam by me shows: I personally evaluated the patient on morning rounds. He is making wonderful progress we should be able to get the nasogastric tube out today. His pain control is in much better condition incision is clean and dry. I personally reviewed the pathology and the segment of bowel at the area of stenosis was involved with suture granulomas which clinically was direct invasion by mesh from the right inguinal hernia repair David Mart MD FACS
[2016-12-11] MEDS: Metoclopramide 10 MG/2 ML VIAL IVP SCH ×3 (14:17→23:21)
[2016-12-11] MEDS ORDERED: Metoclopramide 10 MG/2 ML VIAL IVP SCH (18:00)
[2016-12-12] MEDS: *HR* Heparin 5,000 UNIT/ML VIAL SQ SCH ×2 (05:23→17:50)
[2016-12-12] MEDS: Ketorolac 30 MG/ML VIAL IVP SCH ×5 (05:24→23:49)
[2016-12-12] MEDS: Metoclopramide 10 MG/2 ML VIAL IVP SCH ×4 (05:24→23:49)
[2016-12-12] MEDS ORDERED: *HR* OxyCODONE/APAP 10/325 TABLET PO PRN ×2 (07:13→18:40)
[2016-12-12] MEDS: cefOXitin 2,000 MG in D5% in Water (Mini-Bag+) 100 ML IVPB SCH ×3 (09:57→23:58)
[2016-12-12] MEDS: Pantoprazole 40 MG VIAL IVP SCH (09:57)
[2016-12-12] MEDS ORDERED: *HR* HYDROmorphone 2 MG/ML SYRINGE IVP PRN ×2 (12:30→14:47)
--- NOTE | 2016-12-12 12:35 | General Surgery Progress Note ---
<Adina Lugo - Last Filed: 12/12/16 12:36> Date of Encounter: 12/12/16 Time of Encounter: 12:20 - Assessment and Plan (1) SBO (small bowel obstruction) Current Visit: Yes Status: Acute POD #5 small bowel resection and lysis of adhesions times [address] Mart -patient pulled NG tube out on 12/10/2016 -continue supportive care and discomfort management. 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 will continue to monitor and d/c planning in the next 24-48 hours pending clinical course (2) Abdominal pain Current Visit: Yes Status: Resolved See plan above Qualifiers: Abdominal location: unspecified location Qualified Code(s): R10.9 - Unspecified abdominal pain (3) DVT prophylaxis Current Visit: Yes Status: Acute Continue ambulation at least 3 times daily continue heparin 5000 units subQ twice daily Subjective Patient reports: no new complaints, feels better, still having pain, pain is less, tolerating liquids well, voiding w/o difficulty, flatus, bowel movement, afebrile Objective Vital Signs - Last 8 Hours Temp Pulse Resp BP Pulse Ox 12/12/16 10:45 98.3 F 104 14 152/99 95 12/12/16 07:00 98.7 F 104 16 162/96 94 Intake and Output 12/11/16 12/12/16 12/12/16 23:59 07:59 15:59 Intake Total 1200 / 1200 0 / 0 0 / 0 Output Total 100 / 100 0 / 0 Balance 1100 / 1100 0 / 0 0 / 0 Intake: IV Fluids 1200 / 1200 0.9 % Sodium Chloride 1, 1000 / 1000 000 ML @ 75 mls/hr IVC . [id number] [facility] Rx#: [id number] Mefoxin 2,000 MG In 200 / 200 Dextrose 5% (Minibag+) 100 ML 100 ML @ 200 mls/ hr IVPB Q8HR [facility] Rx#: [id number] Oral 0 / 0 0 / 0 0 / 0 Output: Urine 100 / 100 0 / 0 Other: Meal Refused Breakfast Tray Percent of Meal Consumed 0% # Voids 1 Weight 78.063 kg 65.459 kg Patient Weight 12/12/16 23:59 Weight 65.459 kg - General physical appearance well developed, well nourished, no distress, other ("states pain is tolerable") - Eyes normal ocular movement - ENT normal nares, normal mucosa, no congestion, atraumatic, normocephalic - Neck Neck exam: no masses, no venous distension - Respiratory normal expansion, normal respiratory effort, clear to auscultation - Cardiovascular Cardiovascular exam: Present: RRR, no murmurs/rubs/gallops - Abdomen Abdomen: Present: bowel sounds present, soft, tender (Expected post-operative) - Incision Incision: Present: clean and dry, intact - Integumentary no rash - Neurologic CN 2-12 grossly intact, normal coordination - Musculoskeletal normal gait, normal posture - Psychiatric oriented to time, oriented to person, oriented to place, memory intact - Labs 12/11/16 05:15 12/11/16 05:15 - VTE Documentation of Mechanical Device: Intermittent pneumatic compression device Consult Discharge Plan - Plan Referrals: [facility] [Primary Care Provider] - <David Mart - Last Filed: 12/12/16 15:27> Date of Encounter: 12/12/16 - Assessment and Plan (1) SBO (small bowel obstruction) Current Visit: Yes Status: Acute Objective Vital Signs - Last 8 Hours Temp Pulse Resp BP Pulse Ox 12/12/16 10:45 98.3 F 104 14 152/99 95 Intake and Output 12/11/16 12/12/16 12/12/16 23:59 07:59 15:59 Intake Total 1200 / 1200 0 / 0 1250 / 1250 Output Total 100 / 100 0 / 0 Balance 1100 / 1100 0 / 0 1250 / 1250 Intake: IV Fluids 1200 / 1200 1050 / 1050 0.9 % Sodium Chloride 1, 1000 / 1000 950 / 950 000 ML @ 75 mls/hr IVC . [id number] [facility] Rx#: [id number] Mefoxin 2,000 MG In 200 / 200 100 / 100 Dextrose 5% (Minibag+) 100 ML 100 ML @ 200 mls/ hr IVPB Q8HR [facility] Rx#: [id number] Oral 0 / 0 0 / 0 200 / 200 Output: Urine 100 / 100 0 / 0 Other: Meal Lunch Percent of Meal Consumed 0% # Voids 1 Weight 78.063 kg 65.459 kg Patient Weight 12/12/16 23:59 Weight 65.459 kg - Labs 12/11/16 05:15 12/11/16 05:15 - Attending Attestation I have personally performed a face to face evaluation on this patient. I have reviewed and agree with the care plan. History and Exam by me shows: The patient is seen and evaluated on morning rounds. He is having flatus and bowel sounds. We will advance his diet. I will anticipate discharge tomorrow. The patient's clinical data and care plan were discussed with the clinical nurse practitioner. David Mart MD FACS
[2016-12-12] MEDS ORDERED: *HR* OxyCODONE Immed Rel 5 MG TABLET PO PRN (14:45)
[2016-12-12] MEDS ORDERED: *HR* OxyCODONE/APAP 10/325 TABLET PO SCH (16:00)
[2016-12-12] MEDS: *HR* HYDROmorphone 2 MG/ML SYRINGE IVP PRN (21:36)
[2016-12-13] MEDS: *HR* Heparin 5,000 UNIT/ML VIAL SQ SCH (05:42)
[2016-12-13] MEDS: *HR* HYDROmorphone 2 MG/ML SYRINGE IVP PRN (05:43)
[2016-12-13] MEDS: Ketorolac 30 MG/ML VIAL IVP SCH ×2 (05:44→11:36)
[2016-12-13] MEDS: Metoclopramide 10 MG/2 ML VIAL IVP SCH ×2 (05:45→11:36)
[2016-12-13] MEDS: cefOXitin 2,000 MG in D5% in Water (Mini-Bag+) 100 ML IVPB SCH (07:57)
--- NOTE | 2016-12-13 11:17 | Discharge Summary ---
Date of Encounter: 12/13/16 Time of Encounter: 11:30 - Discharge Diagnosis (1) SBO (small bowel obstruction) Priority: Primary Status: Resolved (2) Abdominal pain Priority: Secondary Status: Resolved Qualifiers: Abdominal location: unspecified location Qualified Code(s): R10.9 - Unspecified abdominal pain (3) DVT prophylaxis Priority: Secondary Status: Acute - Discharge Medications Prescriptions: Ondansetron ODT [Zofran ODT] 4 mg SL Q4HR #30 tab.rapdis OxyCODONE ER (12 HR) [OxyCONTIN] 10 mg PO Q12HR PRN #14 tab.er.12h PRN Reason: Pain Docusate [Colace] 100 mg PO BID #60 Ibuprofen 800 mg PO Q8H PRN #60 tablet PRN Reason: Pain Home Medications: Amitriptyline [Elavil] 50 mg PO HS 09/04/16 [History] Lisinopril [Zestril] 10 mg PO DAILY 09/04/16 [History] Pantoprazole Sodium [Protonix] 40 mg PO DAILY 12/02/16 [History] Docusate [Colace] 100 mg PO BID #60 12/13/16 [Rx] Ibuprofen 800 mg PO Q8H PRN #60 tablet 12/13/16 [Rx] Ondansetron ODT [Zofran ODT] 4 mg SL Q4HR #30 tab.rapdis 12/13/16 [Rx] OxyCODONE ER (12 HR) [OxyCONTIN] 10 mg PO Q12HR PRN #14 tab.er.12h 12/13/16 [Rx] Allergies/Adverse Reactions: 3 Allergy/AdvReac Type Severity Reaction Status Date / Time Amoxicillin AdvReac Rash Verified 12/02/16 06:28 General Surgery Exam Initial Vital Signs Temp Pulse Resp BP Pulse Ox 97.4 F L 93 16 163/111 100 12/02/16 06:25 12/02/16 06:25 12/02/16 06:25 12/02/16 06:25 12/02/16 06:25 - General physical appearance well developed, well nourished, no distress - Neck no masses, no bruits, trachea midline, no lymphadectomy, no venous distension - Respiratory normal expansion, normal respiratory effort, clear to percussion, clear to auscultation - Cardiovascular Cardiovascular exam: Present: RRR, 15, 16 - Abdomen Abdomen general surgery: Present: bowel sounds present, soft, non tender Hernia: Present: none - Incision Incision: Present: clean and dry, intact - Integumentary Integumentary general surgery: Present: warm and dry, no abnormal pigmentation - Neurologic Present: CN 2-12 grossly intact, normal coordination, normal sensation - Musculoskeletal Present: normal gait, normal posture - Psychiatric Psychiatric general surgery: Present: A&Ox3, appropriate, oriented to person, oriented to place, oriented to time, speech is normal, memory intact Date of admission: 12/02/16 10:57 Primary care physician: PCP OR Discharging clinician: David Lugo) - Patient Status Disposition: Home, Self-Care Condition: Good Functional capacity at discharge: independent ambulation Overall status at discharge: patient is progressing back to baseline - Discharge Instructions Instructions: Bowel Resection (DC) Follow Up With: OR,PCP [Primary Care Provider] - David Mart MD [Partnered Physician] - 12/31/16 8:55 am Forms: Inpatient Work/School Release Additional Instructions: -No lifting, pulling, pushing, greater than 15 pounds for 6 weeks. -Okay to climb stairs. -May resume driving when you have been off narcotics for 24 hours and you are safe to react in the car. -You may shower beginning today. Wash the incisions daily with soap and water and pat dry. -No swimming, tough bath, or soaking for 2 weeks. -Return to the office for follow-up as directed. -Report any increase in discomfort or any new fevers greater than 101.5 degrees and signs of infection such as redness, swelling, or drainage from the incisions. -Take stool softener while on narcotics. May hold for loose stools. -Take ibuprofen every 8 hours. If this is ineffective, you may take oxycodone ER every 12 hours for breakthrough pain. - Diet and Activity Activity: increase activity as tolerated Diet: advance to your usual diet - Hospital Course Hospital course: Mr. Davila is a 31 year old male who presented on 12/02/2016 for c/o abdominal pain. He reported a history of multiple abdominal surgeries and SBOs. His past surgeries include: diaphragmatic hernia repair (w/ strangulated bowel), bilateral inguinal hernia repairs, appendectomy, cholecystectomy, and lysis of adhesions. His last obstruction was in August. He was noted to have a SBO and was taken to the OR where he underwent a small bowel resection with primary anastomosis and lysis of adhesions times 2 hours due to mesh erosion into small bowel. The remainder of this hospital course was uncomplicated. He is ambulating and voiding without difficulty. He is tolerating a soft diet. His discomfort is managed with the current regimen. He is passing flatus and having bowel movements. We will begin discharge planning. - Time Spent with Patient Total time spent providing and/or coordinating discharge services: Less than 30 minutes - Impressions ITS Impressions Small Bowel X-Ray 12/03/16 10:34 IMPRESSION: Focally dilated small bowel loops in the mid abdomen measuring upwards of 5.5 cm maximally in diameter. Partial obstruction with mild delay in small bowel transit time at 4 hours . D/ / Huy Bai MD / Huy Bai MD Interpreting Provider: Huy Bai MD Chest/Abdomen X-ray 12/04/16 12:03 IMPRESSION: Low lung volumes and bibasilar atelectasis. Redemonstration of focally dilated small bowel loop in the right abdomen and scattered small bowel air-fluid levels. Contrast from prior small bowel follow-through has progressed into the colon. Findings are compatible with ongoing partial small bowel obstruction. D/ / 12/04/2016 12:58:31 Nunu Peck MD / frank Interpreting Provider: Nunu Peck MD Chest/Abdomen X-ray 12/06/16 06:56 IMPRESSION: 1. No free air. 2. Right basilar atelectasis. 3. Single dilated loops of small bowel in the right lower quadrant which is nonspecific. Gas and enteric contrast is noted within the colon. D/ / 12/06/2016 07:57:07 Rosette Peck MD / jer Interpreting Provider: Rosette Peck MD
[2016-12-13 11:24] VITALS: BP 139/120
== END 2016-12-13 13:20 | disposition home or self-care (01) | DRG 940 ==
LOC: 3ANU 06:23 → EMEROO 06:23 → 3ANU 12:16
PROVIDERS: ADMIT Surgery; ATTEND Surgery

== ENCOUNTER 2020-01-17 10:06 | Observation (INO) ==
[2020-01-17] MEDS ORDERED: *HR* FentaNYL (PF) 100 MCG/2 ML VIAL IVP ONE (11:20)
[2020-01-17] MEDS ORDERED: Isovue-370 500 ML BOTTLE IVP ONE (11:26)
[2020-01-17] MEDS ORDERED: Ondansetron 4 MG/2 ML VIAL IVP ONE (11:32)
[2020-01-17] MEDS ORDERED: 0.9 % Sodium Chloride 1,000 ML IVC ONE (11:41)
[2020-01-17 11:47] LABS: Basophils # 0.1 K/mcL (0.0-0.2); Basophils % 0.9 %; Eosinophils # 0.3 K/mcL (0.0-0.6); Eosinophils % 4.3 %; Hematocrit 50.8 % (37.5-50.1); Hemoglobin 16.4 g/dL (12.9-16.9); Immature Granulocytes % 0.1 % (0-4); Lymphocytes # 1.6 K/mcL (0.6-4.6); Lymphocytes % 20.9 %; Mean Corpuscular HGB Conc 32.3 g/dL (31.6-35.5); Mean Corpuscular Hemoglobin 28.3 pg (28.0-33.3); Mean Corpuscular Volume 87.6 fL (83.0-100.0); Mean Platelet Volume 9.3 fL (9.4-12.4); Monocytes # 0.4 K/mcL (0.0-1.3); Monocytes % 5.9 %; Neutrophils # 5.1 K/mcL (1.6-8.9); Platelet Count 402 K/mcL (140-400); Red Cell Distribution Width 12.6 % (11.5-14.5); Segmented Neutrophils % 67.9 %; White Blood Count 7.5 K/mcL (4.3-11.1)
[2020-01-17 12:01] LABS: Alanine Aminotransferase 196 Units/L (7-52); Albumin/Globulin Ratio 1.7 (1.1-2.2); Alkaline Phosphatase 140 Units/L (34-104); Aspartate Amino Transferase 67 Units/L (13-39); BUN/Creatinine Ratio 13 (6-26); Bilirubin,Direct 0.1 mg/dL (0.0-0.2); Bilirubin,Indirect 0.7 mg/dL (0.0-1.0); Bilirubin,Total 0.8 mg/dL (0.3-1.0); Blood Urea Nitrogen 13 mg/dL (6-20); Calcium 10.3 mg/dL (8.6-10.3); Carbon Dioxide 25 mEq/L (23-29); Chloride 104 mEq/L (98-107); Globulin 2.9 g/dL (2.4-3.5); Glucose 74 mg/dL (70-105); Lipase 94 Units/L (11-82); Osmolality,Calculated 283 (280-300); Potassium 4.1 mEq/L (3.5-5.1); Sodium 137 mEq/L (136-145); Total Protein 7.9 g/dL (6.4-8.9); eGFR For African Americans > 60 (> 60); eGFR For Non-African Americans > 60 (> 60)
[2020-01-17] MEDS ORDERED: Morphine Sulfate 2 MG/ML SYRINGE IVP ONE (13:27)
[2020-01-17] MEDS ORDERED: Naloxone 0.4 MG/ML INJ IVP PRN (14:14)
[2020-01-17] MEDS ORDERED: 0.9 % Sodium Chloride 1,000 ML IVC SCH (14:15)
[2020-01-17] MEDS ORDERED: hydrALAZINE 10 MG TABLET PO PRN (15:19)
[2020-01-17 15:49] LABS: Hepatitis B Surface Antigen Nonreactive (Nonreactive)
[2020-01-17 16:18] LABS: Hepatitis B Core IgM Nonreactive (Nonreactive); Hepatitis C Virus Antibody Nonreactive (Nonreactive)
[2020-01-17 16:20] LABS: Hepatitis A Antibody IgM Nonreactive (Nonreactive)
[2020-01-17] MEDS: polyethylene glycoL 3350 17 GM POWD.PACK PO SCH (17:32)
[2020-01-17] MEDS: lisinopriL 10 MG TABLET PO SCH (17:32)
[2020-01-17] MEDS: 0.9 % Sodium Chloride 1,000 ML IVC SCH (17:34)
[2020-01-17] MEDS: Ondansetron 4 MG/2 ML VIAL IVP PRN ×2 (17:35→22:34)
[2020-01-17] MEDS: Sennosides/Docusate Sodium TABLET PO SCH ×2 (17:45→20:14)
[2020-01-17] MEDS: FLUoxetine 20 MG CAPSULE PO SCH (18:25)
[2020-01-17 21:31] LABS: Amphetamine Screen,Urine Negative ng/mL (Cutoff=1000); Barbiturate Screen,Urine Negative ng/mL (Cutoff=200); Benzodiazepines Screen,Urine Negative ng/mL (Cutoff=200); Cannabinoid Screen,Urine Negative ng/mL (Cutoff = 50); Cocaine Screen,Urine Negative ng/mL (Cutoff= 300); Opiate Screen,Urine Positive ng/mL (Cutoff=300); Phencyclidine Screen,Urine Negative ng/mL (Cutoff=25)
[2020-01-18 04:02] LABS: Basophils # 0.1 K/mcL (0.0-0.2); Basophils % 0.8 %; Eosinophils # 0.3 K/mcL (0.0-0.6); Hematocrit 45.5 % (37.5-50.1); Immature Granulocytes % 0.3 % (0-4); Lymphocytes # 2.2 K/mcL (0.6-4.6); Lymphocytes % 32.5 %; Mean Corpuscular HGB Conc 31.9 g/dL (31.6-35.5); Mean Corpuscular Hemoglobin 28.1 pg (28.0-33.3); Mean Corpuscular Volume 88.2 fL (83.0-100.0); Monocytes # 0.5 K/mcL (0.0-1.3); Monocytes % 7.6 %; Neutrophils # 3.6 K/mcL (1.6-8.9); Platelet Count 326 K/mcL (140-400); Red Blood Count 5.16 M/mcL (4.19-5.50); Red Cell Distribution Width 12.4 % (11.5-14.5); Segmented Neutrophils % 53.8 %; White Blood Count 6.6 K/mcL (4.3-11.1)
[2020-01-18 04:04] LABS: Hemoglobin 14.5 g/dL (12.9-16.9)
[2020-01-18 04:20] LABS: Alanine Aminotransferase 136 Units/L (7-52); Albumin 3.9 g/dL (3.5-5.7); Albumin/Globulin Ratio 1.8 (1.1-2.2); Alkaline Phosphatase 106 Units/L (34-104); Aspartate Amino Transferase 54 Units/L (13-39); BUN/Creatinine Ratio 14 (6-26); Bilirubin,Total 0.7 mg/dL (0.3-1.0); Blood Urea Nitrogen 13 mg/dL (6-20); Calcium 9.1 mg/dL (8.6-10.3); Carbon Dioxide 24 mEq/L (23-29); Chloride 106 mEq/L (98-107); Globulin 2.2 g/dL (2.4-3.5); Glucose 96 mg/dL (70-105); Magnesium 1.9 mg/dL (1.6-2.6); Osmolality,Calculated 278 (280-300); Potassium 4.3 mEq/L (3.5-5.1); Sodium 134 mEq/L (136-145); Total Protein 6.1 g/dL (6.4-8.9); eGFR For African Americans > 60 (> 60); eGFR For Non-African Americans > 60 (> 60)
[2020-01-18] MEDS: 0.9 % Sodium Chloride 1,000 ML IVC SCH ×4 (06:17→21:58)
[2020-01-18] MEDS: polyethylene glycoL 3350 17 GM POWD.PACK PO SCH (09:49)
[2020-01-18] MEDS: lisinopriL 10 MG TABLET PO SCH (09:50)
[2020-01-18] MEDS: Sennosides/Docusate Sodium TABLET PO SCH ×2 (09:50→21:57)
[2020-01-18] MEDS: FLUoxetine 20 MG CAPSULE PO SCH (09:50)
[2020-01-18] MEDS: Ondansetron 4 MG/2 ML VIAL IVP PRN ×2 (09:55→21:07)
[2020-01-18 15:37] LABS: Adenovirus Not Detected (Not Detect); Bordetella Pertussis Not Detected (Not Detect); Chlamydophila pneumoniae Not Detected (Not Detect); Coronavirus 229E Not Detected (Not Detect); Coronavirus HKU1 Not Detected (Not Detect); Coronavirus NL63 Not Detected (Not Detect); Coronavirus OC43 Not Detected (Not Detect); Human Metapneumovirus Not Detected (Not Detect); Human Rhinovirus/Enterovirus Not Detected (Not Detect); Influenza A Subtype 2009 H1 Not Detected (Not Detect); Influenza B Not Detected (Not Detect); Mycoplasma pneumoniae Not Detected (Not Detect); Parainfluenza Virus 1 Not Detected (Not Detect); Parainfluenza Virus 2 Not Detected (Not Detect); Parainfluenza Virus 3 Not Detected (Not Detect); Parainfluenza Virus 4 Not Detected (Not Detect); Respiratory Syncytial Virus Not Detected (Not Detect); SARS-CoV-2 Not Detected (Not Detect)
[2020-01-18] MEDS ORDERED: Lidocaine -MPF 2% 2 ML VIAL ONE (15:49)
[2020-01-18] MEDS ORDERED: *HR* Propofol 200 MG/20 ML VIAL IVP ONE ×2 (15:50→16:00)
[2020-01-18 20:19] LABS: Prothrombin Time 11.6 Seconds (9.4-12.1)
[2020-01-18 20:30] LABS: % Iron Saturation 18 % (20-55); Iron 66 mcg/dL (65-175); Transferrin 264 mg/dL (203-362)
[2020-01-19] MEDS: 0.9 % Sodium Chloride 1,000 ML IVC SCH ×2 (04:42→04:56)
[2020-01-19 06:44] LABS: Alanine Aminotransferase 96 Units/L (7-52); Albumin 3.7 g/dL (3.5-5.7); Albumin/Globulin Ratio 1.9 (1.1-2.2); Alkaline Phosphatase 92 Units/L (34-104); Aspartate Amino Transferase 29 Units/L (13-39); BUN/Creatinine Ratio 13 (6-26); Bilirubin,Total 0.3 mg/dL (0.3-1.0); Blood Urea Nitrogen 12 mg/dL (6-20); Calcium 8.8 mg/dL (8.6-10.3); Carbon Dioxide 24 mEq/L (23-29); Chloride 109 mEq/L (98-107); Glucose 134 mg/dL (70-105); Osmolality,Calculated 290 (280-300); Potassium 4.1 mEq/L (3.5-5.1); Sodium 139 mEq/L (136-145); Total Protein 5.7 g/dL (6.4-8.9); eGFR For African Americans > 60 (> 60); eGFR For Non-African Americans > 60 (> 60)
[2020-01-19] MEDS: polyethylene glycoL 3350 17 GM POWD.PACK PO SCH (10:13)
[2020-01-19] MEDS: Sennosides/Docusate Sodium TABLET PO SCH (10:14)
[2020-01-19] MEDS: lisinopriL 10 MG TABLET PO SCH (10:14)
[2020-01-19] MEDS: FLUoxetine 20 MG CAPSULE PO SCH (10:14)
[2020-01-19 11:12] VITALS: BP 147/94
[2020-01-21 12:34] LABS: AFP Tumor Marker Non-Pregnant 2 ng/mL (0-9); F-Actin (sm muscle) Ab IgG 4 Units (0-19)
[2020-01-21 12:35] LABS: Immunoglobulin A (CELIAC) 174 mg/dL (68-408); Immunoglobulin G Subclass 1 458 mg/dL (240-1118); Immunoglobulin G Subclass 2 68 mg/dL (124-549); Immunoglobulin G Subclass 3 18 mg/dL (21-134); Immunoglobulin G Subclass 4 1 mg/dL (1-123)
[2020-01-21 12:51] LABS: ANA IgG by ELISA NONE DETECTED (None Detected); Tissue Transglutaminase IgA <2 U/mL (0-3)
== END 2020-01-19 11:37 | disposition home or self-care (01) ==
LOC: CDU 10:06 → EMEROOARM 10:06 → CDU 15:10 → 3ANU 01-18 17:06
PROVIDERS: ADMIT Internal Medicine; ATTEND Internal Medicine
PROC: ENDOEBX (2020-01-18 17:30)